=== PATIENT | female | born 1955 | race Caucasian/White ===

== ENCOUNTER 2020-08-27 10:54 | Emergency (ER) | payer MEDICAID ==
--- NOTE | 2020-08-27 10:59 | ERPHSYRPT ---
- History of Present Illness Time Seen by Provider: 08/27/20 10:59 Source: patient Exam Limitations: no limitations Physician History: This is an obese 64-year-old white female who continues to smoke cigarettes but has decreased from 3 packs a day down to half a pack a day and presents with shortness of breath. Patient has been living in [place] and moved to [place] 08 Aug 2020 patient does not have a primary care physician locally. She is running out of her medications and has not been on any oxygen therapy since August 08, 2020. She normally wears 5 L of oxygen via nasal cannula every day. Patient denies chest pain. Her main complaint is shortness of breath and cough. Her symptoms have worsened in the last few days. Patient has not had a heart attack. She has been diagnosed with congestive heart failure, COPD, asthma, recurrent bronchitis. Patient does have home pulse oximeter. She states that with oxygen (5 L nasal cannula) she runs approximately 93 to 94%. She had been running 88% on room air since August 08. She became concerned when she noticed her oxygenation level on room air in the last few days has dipped down to 85%. She has had associated headache intermittently. States that she is allergic to penicillin but has taken Keflex in the past without any problems or allergic reaction. Activities at Onset: none Severity of Dyspnea-Max: moderate Severity of Dyspnea-Current: moderate Possible Cause: occasional episodes Modifying Factors: Improves With: coughing, oxygen (Improves), rest Associated Symptoms: intermittent, cough Allergies/Adverse Reactions: Penicillins Allergy (Verified 08/27/20 11:17) Hives Home Medications: Allopurinol 100 mg [Zyloprim 100 mg] 100 mg PO DAILY 08/27/20 [History] Atorvastatin Calcium [Lipitor 20MG Tablet] 20 mg PO DAILY 08/27/20 [History] Cyclobenzaprine HCl [Flexeril] 10 mg PO TID 08/27/20 [History] Fluticasone/Salmeterol 500/50* [Advair 500-50 Diskus] 0 each IH DAILY 08/27/20 [History] Furosemide 40 mg [Lasix 40 MG] 40 mg PO DAILY 08/27/20 [History] Ipratropium [place] [Atrovent Hfa] 1 puff IH DAILY 08/27/20 [History] Loratadine 10 mg [Claritin 10 mg] 10 mg PO DAILY 08/27/20 [History] PANTOPRAZOLE 40 mg Tablet [Protonix 40MG Tablet] 40 mg PO DAILY 08/27/20 [History] Potassium Chloride 20 meq PO DAILY 08/27/20 [History] glipiZIDE [Glipizide] 5 mg PO DAILY 08/27/20 [History] Travel Risk - International Travel Have you traveled outside of the country in past 3 weeks: No - Coronavirus Screening Are you exhibiting any of the following symptoms?: Yes Symptoms: Shortness of Breath Close contact with a COVID-19 positive Pt in past 14-21 Days: No - Review of Systems Constitutional: No Symptoms Eyes: No Symptoms Ears, Nose, & Throat: No Symptoms Respiratory: Cough, Dyspnea Cardiac: No Symptoms Abdominal/Gastrointestinal: No Symptoms Genitourinary Symptoms: No Symptoms Musculoskeletal: No Symptoms Skin: No Symptoms Neurological: No Symptoms Psychological: No Symptoms Endocrine: No Symptoms Hematologic/Lymphatic: No Symptoms Immunological/Allergic: No Symptoms All Other Systems: Reviewed and Negative - Past Medical History Pertinent Past Medical History: Yes Respiratory History: Asthma, Bronchitis, CHF, COPD Endocrine Medical History: No Pertinent History Musculoskeletal History: No Pertinent History GI Medical History: No Pertinent History History: No Pertinent History Psycho-Social History: No Pertinent History Female Reproductive Disorders: No Pertinent History - Past Surgical History Past Surgical History: Yes - Social History Smoking Status: Current every day smoker - Nursing Vital Signs Nursing Vital Signs: Initial Vital Signs Temperature 97.4 F 08/27/20 11:07 Pulse Rate 99 H 08/27/20 11:07 Respiratory Rate 24 08/27/20 11:07 Blood Pressure 117/84 08/27/20 11:07 O2 Sat by Pulse Oximetry 95 08/27/20 11:07 Pain Scale Pain Intensity 8 - Physical Exam General Appearance: no apparent distress, alert, anxiety, obese Eye Exam: PERRL/EOMI, eyes nml inspection Ears, Nose, Throat Exam: hearing grossly normal, normal ENT inspection, normal pharynx Neck Exam: normal inspection, non-tender, supple, full range of motion Respiratory Exam: normal breath sounds, lungs clear, respiratory distress, airway intact, No chest tenderness Cardiovascular/Chest Exam: normal heart sounds, regular rate/rhythm Abdominal/Gastrointestinal Exam: soft, normal bowel sounds, tenderness Rectal Exam: not done Extremity Exam: non-tender, normal range of motion, normal inspection Neurologic Exam: alert, oriented x 3, cooperative, 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 No comparison EKG available.) Ordered Tests: Active Orders 24 hr Category Date Time Status Electrical Prospector STAT Care 08/27/20 11:44 Active EKG-ER Only STAT Care 08/27/20 11:43 Active IV Insertion STAT Care 08/27/20 11:43 Active Oxygen-ED Only Nasal Cannula 5 lpm Care 08/27/20 11:43 Active Pulse Oximetry (ED) STAT Care 08/27/20 11:43 Active CHEST 1 VIEW (PORTABLE) Stat Exams 08/27/20 11:44 Completed ABG [ARTERIAL BLOOD GASES] Urgent Lab 08/27/20 11:45 Ordered ARTERIAL BLOOD GASES Stat Lab 08/27/20 11:43 Completed BLOOD CULTURE Stat Lab 08/27/20 11:50 Received CBC W DIFF Stat Lab 08/27/20 11:12 Completed CMP Stat Lab 08/27/20 11:12 Completed D-DIMER QUANTITATIVE Stat Lab 08/27/20 11:12 Completed INFLUENZA A+B OUMOU Stat Lab 08/27/20 11:50 Completed Lactic Acid Stat Lab 08/27/20 11:43 Completed MAGNESIUM Stat Lab 08/27/20 11:12 Completed NT PRO BNP Stat Lab 08/27/20 11:12 Completed PROTIME WITH INR Stat Lab 08/27/20 11:12 Completed TROPONIN Q3H Lab 08/27/20 11:12 Completed TROPONIN Q3H Lab 08/27/20 14:45 Ordered TROPONIN Q3H Lab 08/27/20 17:45 Ordered TROPONIN Q3H Lab 08/27/20 20:45 Ordered TROPONIN Q3H Lab 08/27/20 23:45 Ordered Medication Summary Discontinued Medications Generic Name Dose Route Start Last Admin Trade Name Freq PRN Reason Stop Dose Admin Methylprednisolone Sodium Succinate 125 mg 08/27/20 11:43 08/27/20 12:09 Solu-Medrol 125 Mg IV 08/27/20 11:44 125 mg STAT ONE Administration Methylprednisolone Sodium Succinate Confirm 08/27/20 12:05 Solu-Medrol 125 Mg Administered 08/27/20 12:06 Dose 125 mg .ROUTE .STK-MED ONE Lab/Rad Data: Laboratory Result Diagrams 08/27/20 11:12 08/27/20 11:12 Laboratory Results 08/27/20 08/27/20 08/27/20 Range/Units 11:50 11:43 11:12 WBC (4.0-10.5) K/mm3 RBC (4.1-5.4) M/mm3 Hgb (12.0-16.0) gm/dl Hct (35-47) % MCV (78-100) fl MCH (26-32) pg MCHC (32-36) g/dl RDW (11.5-14.0) % Plt Count (150-450) K/mm3 MPV (7.5-11.0) fl Gran % (36.0-66.0) % Eos # (Auto) (0-0.5) Absolute Lymphs (auto) (1.0-4.6) Absolute Monos (auto) (0.0-1.3) Lymphocytes % (24.0-44.0) % Monocytes % (0.0-12.0) % Eosinophils % (0.00-5.0) % Basophils % (0.0-0.4) % Absolute Granulocytes (1.4-6.9) Basophils # (0-0.4) PT (9.95-12.35) SECONDS INR (0.8-3.0) D-Dimer (215-500) ng/mL Puncture Site LEFT BRACHIAL pCO2 44 (35-45) mmHg pO2 79 (75-100) mmHg Base Excess 3.4 H (-2.0-2.0) O2 Saturation 90.2 L (94-100) g/dF ABG pH 7.42 (7.35-7.45) ABG HCO3 28.5 H (22-28) ABG O2 Sat (Measured) 97.5 (95-100) % Baldomero Test NOT APPLICABLE A-a Gradient 151 a/A Ratio 0.34 Hemoglobin 15.0 Carboxyhemoglobin 6.6 (0.0-6.9) % THgb Methemoglobin 0.9 L (1.4-1.5) % Temperature 37.0 C POC O2 Flow Rate 40 % Sodium (137-145) mmol/L Potassium 4.0 (3.5-5.1) mmol/L Chloride (98-107) mmol/L Carbon Dioxide (22-30) mmol/L Anion Gap (5-15) MEQ/L BUN (7-17) mg/dL Creatinine (0.52-1.04) mg/dL Estimated GFR ML/MIN Glucose (74-106) mg/dL Lactic Acid 1.9 (0.4-2.0) Calcium (8.4-10.2) mg/dL Magnesium (1.6-2.3) mg/dL Total Bilirubin (0.2-1.3) mg/dL AST (14-36) U/L ALT (0-35) U/L Alkaline Phosphatase (38-126) U/L Troponin I < 0.012 (0.000-0.034) ng/mL NT-Pro-B Natriuret Pep (0-900) pg/mL Serum Total Protein (6.3-8.2) g/dL Albumin (3.5-5.0) g/dL Influenza Type A Ag NEGATIVE (NEGATIVE) Influenza Type B Ag NEGATIVE (NEGATIVE) 08/27/20 08/27/20 08/27/20 Range/Units 11:12 11:12 11:12 WBC 10.5 (4.0-10.5) K/mm3 RBC 5.22 (4.1-5.4) M/mm3 Hgb 14.9 (12.0-16.0) gm/dl Hct 47.5 H (35-47) % MCV 91.0 (78-100) fl MCH 28.5 (26-32) pg MCHC 31.4 L (32-36) g/dl RDW 15.0 H (11.5-14.0) % Plt Count 269 (150-450) K/mm3 MPV 10.6 (7.5-11.0) fl Gran % 53.0 (36.0-66.0) % Eos # (Auto) 0.07 (0-0.5) Absolute Lymphs (auto) 4.38 (1.0-4.6) Absolute Monos (auto) 0.49 (0.0-1.3) Lymphocytes % 41.6 (24.0-44.0) % Monocytes % 4.6 (0.0-12.0) % Eosinophils % 0.7 (0.00-5.0) % Basophils % 0.1 (0.0-0.4) % Absolute Granulocytes 5.59 (1.4-6.9) Basophils # 0.01 (0-0.4) PT 11.9 (9.95-12.35) SECONDS INR 1.05 (0.8-3.0) D-Dimer 497 (215-500) ng/mL Puncture Site pCO2 (35-45) mmHg pO2 (75-100) mmHg Base Excess (-2.0-2.0) O2 Saturation (94-100) g/dF ABG pH (7.35-7.45) ABG HCO3 (22-28) ABG O2 Sat (Measured) (95-100) % Baldomero Test A-a Gradient a/A Ratio Hemoglobin Carboxyhemoglobin (0.0-6.9) % THgb Methemoglobin (1.4-1.5) % Temperature C POC O2 Flow Rate % Sodium 137 (137-145) mmol/L Potassium 3.9 (3.5-5.1) mmol/L Chloride 100 (98-107) mmol/L Carbon Dioxide 27 (22-30) mmol/L Anion Gap 13.9 (5-15) MEQ/L BUN 12 (7-17) mg/dL Creatinine 0.58 (0.52-1.04) mg/dL Estimated GFR > 60.0 ML/MIN Glucose 137 H (74-106) mg/dL Lactic Acid (0.4-2.0) Calcium 9.3 (8.4-10.2) mg/dL Magnesium 2.1 (1.6-2.3) mg/dL Total Bilirubin 0.30 (0.2-1.3) mg/dL AST 26 (14-36) U/L ALT 14 (0-35) U/L Alkaline Phosphatase 72 (38-126) U/L Troponin I (0.000-0.034) ng/mL NT-Pro-B Natriuret Pep 77.8 (0-900) pg/mL Serum Total Protein 7.0 (6.3-8.2) g/dL Albumin 4.1 (3.5-5.0) g/dL Influenza Type A Ag (NEGATIVE) Influenza Type B Ag (NEGATIVE) - Progress Progress: improved, re-examined Air Movement: good Progress Note: 08/27/20 13:26 Chest x-ray shows no acute cardiopulmonary process. Blood Culture(s) Obtained: Yes Antibiotics given: No Counseled pt/family regarding: lab results, diagnosis, need for follow-up, rad results - Departure Departure Disposition: Home Clinical Impression: COPD exacerbation Condition: Stable Critical Care Time: No Referrals: DOCTOR,NO FAMILY [Primary Care Provider] - Instructions: Chronic Obstructive Pulmonary Disease Additional Instructions: Stop smoking. Take your medication as prescribed. Call and make an appointment with one of the doctors/primary care providers on the list provided to you. Prescriptions: Prednisone 10 mg [Deltasone 10 mg] 10 mg PO TID #12 tablet
[2020-08-27] MEDS ORDERED: solu-MEDROL 125 MG IV ONE (11:43)
[2020-08-27 11:46] LABS: A-aADO2 151; ABG SITE LEFT BRACHIAL; ARTERIAL BLD GAS O2 SATURATION 97.5 % (95-100); ARTERIAL BLOOD GAS BASE EXCESS 3.4 (-2.0-2.0); ARTERIAL BLOOD GAS FIO2 40 %; ARTERIAL BLOOD GAS PCO2 44 mmHg (35-45); ARTERIAL BLOOD GAS PO2 79 mmHg (75-100); ARTERIAL BLOOD GAS pH 7.42 (7.35-7.45); CARBOXYHEMOGLOBIN 6.6 % THgb (0.0-6.9); HCO3- 28.5 (22-28); HGB O2 SAT 90.2 g/dF (94-100); Lactic Acid 1.9 (0.4-2.0); Methhemoglobin 0.9 % (1.4-1.5)
[2020-08-27 11:50] LABS: Absolute Neutrophil Ct (ANC) 5.59 (1.4-6.9); BASOPHIL % 0.1 % (0.0-0.4); Basophil (Absolute #) 0.01 (0-0.4); Eosinophil % 0.7 % (0.00-5.0); Eosinophil (Absolute #) 0.07 (0-0.5); Hematocrit 47.5 % (35-47); Hemoglobin 14.9 gm/dl (12.0-16.0); Lymphocyte (Absolute #) 4.38 (1.0-4.6); Lymphocytes % 41.6 % (24.0-44.0); Mean Corpuscular Hemoglobin 28.5 pg (26-32); Mean Corpuscular Hgb Concent. 31.4 g/dl (32-36); Mean Platelet Volume 10.6 fl (7.5-11.0); Monocyte (Absolute #) 0.49 (0.0-1.3); Monocytes % 4.6 % (0.0-12.0); Platelet Count 269 K/mm3 (150-450); Red Blood Count 5.22 M/mm3 (4.1-5.4); White Blood Count 10.5 K/mm3 (4.0-10.5)
[2020-08-27 11:55] LABS: INR 1.05 (0.8-3.0); PROTIME 11.9 SECONDS (9.95-12.35)
[2020-08-27 12:05] LABS: ALBUMIN 4.1 g/dL (3.5-5.0); ALKALINE PHOSPHATASE 72 U/L (38-126); ANION GAP 13.9 MEQ/L (5-15); BLOOD UREA NITROGEN 12 mg/dL (7-17); CHLORIDE 100 mmol/L (98-107); Calcium 9.3 mg/dL (8.4-10.2); Carbon Dioxide 27 mmol/L (22-30); Creatinine 1 0.58 mg/dL (0.52-1.04); EST GLOMERULAR FILTRATION RATE > 60.0 ML/MIN; Glucose 137 mg/dL (74-106); MAGNESIUM 2.1 mg/dL (1.6-2.3); NT PRO BNP 77.8 pg/mL (0-900); Potassium 3.9 mmol/L (3.5-5.1); SGOT/AST 26 U/L (14-36); SGPT/ALT 14 U/L (0-35); SODIUM 137 mmol/L (137-145)
[2020-08-27] MEDS ORDERED: solu-MEDROL 125 MG ONE (12:05)
--- NOTE | 2020-08-27 12:08 | XRAY ---
Indication: Cough and shortness of breath. Comparison: None Portable chest demonstrates minimal left base subsegmental atelectasis/scarring. Remaining heart and lungs unremarkable. Bony thorax intact.
[2020-08-27 12:15] LABS: INFLUENZA A NEGATIVE (NEGATIVE); INFLUENZA B NEGATIVE (NEGATIVE)
[2020-08-27 15:23] VITALS: BP 114/72; O2SAT 94
[2020-08-27 16:05] VITALS: PULSE 90
== END 2020-08-27 16:29 | disposition home or self-care (01) ==
LOC: ED 10:54
DX: J44.1 Chronic obstructive pulmonary disease with (acute) exacerbation (principal); F17.210 Nicotine dependence, cigarettes, uncomplicated; R05 Cough; Z99.81 Dependence on supplemental oxygen; Z79.899 Other long term (current) drug therapy
CPT/HCPCS: 36000; 36415; 36600; 71045; 80053; 82375; 82803; 83605; 83735; 83880; 84484; 85025; 85379; 85610; 87040; 87400; 93005; 93041; 94760; 96374; 99284; J2930

== ENCOUNTER 2020-10-29 18:56 | Inpatient (IN) | payer MEDICAID, OTHER ==
[2020-10-29] MEDS ORDERED: solu-MEDROL 125 MG, Sterile H2O 10 ml 2 ML IV ONE ×2 (19:20)
[2020-10-29] MEDS ORDERED: DUONEB 0.5-3 MG/3 ml Neb IH ONE ×2 (19:20→19:27)
[2020-10-29] MEDS ORDERED: BABY ASPIRIN 81 MG CHEW PO ONE (19:22)
--- NOTE | 2020-10-29 19:27 | ERPHSYRPT ---
- History of Present Illness Time Seen by Provider: 10/29/20 18:59 Source: patient, EMS Exam Limitations: no limitations Patient Subjective Stated Complaint: SOB x 4 days Triage Nursing Assessment: Patient presents to ED by EMS from home with cc of SOB x 4 days. Pt arrives a & [facility], answers questions appropriately. GCS 15. Sinus tach noted at a rate of 130. RR elevated at mid 30's. Arrives on duoneb mask by EMS (93% on duoneb). Pt always wears 2L O2 at home. SOB at rest. Respirations are even but somewhat labored. Hx CHF. Denies chest pain. BP stable at 117/95. Skin pink and warm but diaphoretic. Physician History: 65 years old morbidly obese female with longstanding history of tobacco abuse,'s chronic respiratory failure secondary to COPD on 5 L, still continues to smoke half pack daily, diabetes mellitus, congestive heart failure presented to the ER with 4 days history of increasing shortness of breath initially with minimal activity and now even at resting and despite being on 5 L feels very short of breath. She has also minimal productive cough. On EMS arrival today she was satting around 90% on 5 L, given DuoNeb when she is around 94%. Subjective feeling of fever and chills along with chest heaviness. Denies any lower extremity swellings. Timing/Duration: day(s) (4), constant, gradual onset, worse Activities at Onset: rest Severity of Dyspnea-Max: severe Severity of Dyspnea-Current: severe Modifying Factors: Worsens With: activity, coughing Associated Symptoms: constant, cough, fever, wheezing, chills, productive cough, tightness Allergies/Adverse Reactions: Penicillins Allergy (Verified 10/29/20 19:12) Hives Home Medications: Allopurinol 100 mg [Zyloprim 100 mg] 100 mg PO DAILY 08/27/20 [History] Atorvastatin Calcium [Lipitor 20MG Tablet] 20 mg PO DAILY 08/27/20 [History] Cyclobenzaprine HCl [Flexeril] 10 mg PO TID 08/27/20 [History] Fluticasone/Salmeterol 500/50* [Advair 500-50 Diskus] 0 each IH DAILY 08/27/20 [History] Furosemide 40 mg [Lasix 40 MG] 40 mg PO DAILY 08/27/20 [History] Ipratropium [place] [Atrovent Hfa] 1 puff IH DAILY 08/27/20 [History] Loratadine 10 mg [Claritin 10 mg] 10 mg PO DAILY 08/27/20 [History] PANTOPRAZOLE 40 mg Tablet [Protonix 40MG Tablet] 40 mg PO DAILY 08/27/20 [History] Potassium Chloride 20 meq PO DAILY 08/27/20 [History] glipiZIDE [Glipizide] 5 mg PO DAILY 08/27/20 [History] Hx Tetanus, Diphtheria Vaccination/Date Given: Yes Hx Influenza Vaccination/Date Given: Yes Hx Pneumococcal Vaccination/Date Given: Yes Travel Risk - International Travel Have you traveled outside of the country in past 3 weeks: No - Coronavirus Screening Are you exhibiting any of the following symptoms?: No Close contact with a COVID-19 positive Pt in past 14-21 Days: No - Vaccine Status Have you recieved a Covid-19 vaccination: Yes Professor Of Literature: Unknown - Vaccination Dates Dates if Unknown: unknown - Review of Systems Constitutional: Fever, Chills, Fatigue, Weakness Eyes: No Symptoms Ears, Nose, & Throat: No Symptoms Respiratory: Cough, Dyspnea, Dyspnea on Exertion (CASE), Wheezing Cardiac: Palpitations, Orthopnea Abdominal/Gastrointestinal: No Symptoms Genitourinary Symptoms: No Symptoms Musculoskeletal: No Symptoms Skin: No Symptoms Neurological: No Symptoms Psychological: No Symptoms Endocrine: No Symptoms Hematologic/Lymphatic: No Symptoms Immunological/Allergic: No Symptoms - Past Medical History Pertinent Past Medical History: Yes Cardiac History: Congestive Heart Failure, High Cholesterol Respiratory History: Asthma, Bronchitis, CHF, COPD Endocrine Medical History: No Pertinent History Musculoskeletal History: No Pertinent History GI Medical History: No Pertinent History History: No Pertinent History Psycho-Social History: No Pertinent History Female Reproductive Disorders: No Pertinent History Other Medical History: GOUT, seasonal allergies, - Past Surgical History Past Surgical History: Yes Musculoskeletal: Orthopedic Surgery Female Surgical History: Hysterectomy Other Surgical History: teeth removed, bunyonectomy, R hand - Social History Smoking Status: Current every day smoker How long have you smoked: years Exposure to second hand smoke: No Drug Use: none Patient Lives Alone: Yes - Female History Hx Now: No - Nursing Vital Signs Nursing Vital Signs: Initial Vital Signs Temperature 98.9 F 07/22/21 19:00 Pulse Rate 132 H 10/29/20 19:00 Respiratory Rate 36 H 10/29/20 19:00 Blood Pressure 117/95 10/29/20 19:00 O2 Sat by Pulse Oximetry 93 L 10/29/20 19:00 Pain Scale Pain Intensity 7 - Physical Exam General Appearance: no apparent distress, alert Eye Exam: PERRL/EOMI, eyes nml inspection Ears, Nose, Throat Exam: hearing grossly normal, pharyngeal erythema Neck Exam: normal inspection, non-tender, full range of motion Respiratory Exam: respiratory distress, diminished breath sounds, accessory muscle use, prolonged expirations, crackles/rales, rhonchi, wheezing Cardiovascular/Chest Exam: normal heart sounds, tachycardia Abdominal/Gastrointestinal Exam: soft, normal bowel sounds Extremity Exam: non-tender, normal range of motion Neurologic Exam: alert, oriented x 3, cooperative Skin Exam: normal color SpO2 Interpretation: normal SpO2: 93 O2 Delivery: Nasal Cannula - Course EKG Interpreted by Me: RATE (131), Sinus Tach, Left [place] Deviation, LAFB, NORMAL INTERVALS, Non-specific ST Changes Ordered Tests: Active Orders 24 hr Category Date Time Status Lift Driver STAT Care 10/29/20 19:21 Active EKG-ER Only STAT Care 10/29/20 19:20 Active IV Insertion STAT Care 10/29/20 19:20 Active CHEST 1 VIEW (PORTABLE) Stat Exams 10/29/20 19:21 Taken CHEST WITH CONTRAST [CT] Stat Exams 10/29/20 20:27 Taken ARTERIAL BLOOD GASES Stat Lab 10/29/20 19:35 Completed BLOOD CULTURE Stat Lab 10/29/20 19:40 Received CBC W DIFF Stat Lab 10/29/20 19:30 Completed CMP Stat Lab 10/29/20 19:30 Completed Lactic Acid Stat Lab 10/29/20 19:35 Completed MAGNESIUM Stat Lab 10/29/20 19:30 Completed Manual Differential NC Stat Lab 10/29/20 19:30 Completed NT PRO BNP Stat Lab 10/29/20 19:30 Completed TROPONIN Q3H Lab 10/29/20 19:30 Completed TROPONIN Q3H Lab 10/29/20 22:30 Ordered TROPONIN Q3H Lab 10/30/20 01:30 Ordered TROPONIN Q3H Lab 10/30/20 04:30 Ordered TROPONIN Q3H Lab 10/30/20 07:30 Ordered UA W/RFX UR CULTURE Stat Lab 10/29/20 19:20 Ordered BiPap/CPAP STAT RT 10/29/20 19:20 Active Respiratory Therapy Assessment DAILY RT 10/29/20 19:29 Active Transfer Order Routine Transfer 10/29/20 Ordered Medication Summary Discontinued Medications Generic Name Dose Route Start Last Admin Trade Name Cristian PRN Reason Stop Dose Admin Albuterol/Ipratropium 3 ml 10/29/20 19:20 10/29/20 19:28 Duoneb 0.5-3 Mg/3 Ml Neb IH 10/29/20 19:21 3 ml STAT ONE Administration Albuterol/Ipratropium Confirm 10/29/20 19:27 Duoneb 0.5-3 Mg/3 Ml Neb Administered 10/29/20 19:28 Dose 3 ml IH .STK-MED ONE Aspirin 324 mg 10/29/20 19:22 10/29/20 19:50 Baby Aspirin 81 Mg Chew PO 10/29/20 19:23 324 mg STAT ONE Administration Methylprednisolone Sodium 0 mg 10/29/20 19:20 10/29/20 19:48 Succinate 125 mg/ Sterile IV 10/29/20 19:21 125 mg Water 2 ml STAT ONE Administration Levofloxacin/Dextrose 750 mg in 150 mls @ 100 mls/hr 10/29/20 19:35 10/29/20 19:51 Levofloxacin 750mg/150ml D5w IV 10/29/20 21:04 100 mls/hr STAT STA 100 mls/hr Administration Aztreonam 2 gm/ Sodium 100 mls @ 200 mls/hr 10/29/20 19:35 10/29/20 20:30 Chloride IV 10/29/20 20:04 200 mls/hr STAT ONE Administration Levofloxacin/Dextrose Confirm 10/29/20 19:44 Levofloxacin 750mg/150ml D5w Administered 10/29/20 19:45 Dose 750 mg in 150 mls @ ud IV .STK-MED ONE Sodium Chloride Confirm 10/29/20 19:46 Sodium Chloride 0.9% 100 Ml Bag Administered 10/29/20 19:47 Dose 100 mls @ ud .ROUTE .STK-MED ONE Methylprednisolone Sodium Succinate Confirm 10/29/20 19:44 Solu-Medrol Administered 10/29/20 19:45 Dose 125 mg .ROUTE .STK-MED ONE Sterile Water Confirm 10/29/20 19:49 Sterile H2o 10 Ml Administered 10/29/20 19:50 Dose 10 ml IJ .STK-MED ONE Lab/Rad Data: Laboratory Result Diagrams 10/29/20 19:30 10/29/20 19:30 Laboratory Results 10/29/20 10/29/20 10/29/20 Range/Units 19:35 19:30 19:30 WBC (4.0-10.5) K/mm3 RBC (4.1-5.4) M/mm3 Hgb (12.0-16.0) gm/dl Hct (35-47) % MCV (78-100) fl MCH (26-32) pg MCHC (32-36) g/dl RDW (11.5-14.0) % Plt Count (150-450) K/mm3 MPV (7.5-11.0) fl Puncture Site RIGHT RADIAL pCO2 30 L (35-45) mmHg pO2 63 L (75-100) mmHg Base Excess 5.2 H (-2.0-2.0) O2 Saturation 91.0 L (94-100) g/dF ABG pH 7.56 H* (7.35-7.45) ABG HCO3 26.9 (22-28) ABG O2 Sat (Measured) 95.4 (95-100) % Baldomero Test YES A-a Gradient 613 a/A Ratio 0.09 Hemoglobin 15.1 Carboxyhemoglobin 3.5 (0.0-6.9) % THgb Methemoglobin 1.1 L (1.4-1.5) % Temperature 37.0 C POC O2 Flow Rate 100 % Sodium 134 L (137-145) mmol/L Potassium 3.6 3.6 (3.5-5.1) mmol/L Chloride 95 L (98-107) mmol/L Carbon Dioxide 27 (22-30) mmol/L Anion Gap 16.2 H (5-15) MEQ/L BUN 16 (7-17) mg/dL Creatinine 0.59 (0.52-1.04) mg/dL Estimated GFR > 60.0 ML/MIN Glucose 138 H (74-106) mg/dL Lactic Acid 1.6 (0.4-2.0) Calcium 9.6 (8.4-10.2) mg/dL Magnesium 1.7 (1.6-2.3) mg/dL Total Bilirubin 0.70 (0.2-1.3) mg/dL AST 21 (14-36) U/L ALT 11 (0-35) U/L Alkaline Phosphatase 87 (38-126) U/L Troponin I < 0.012 (0.000-0.034) ng/mL NT-Pro-B Natriuret Pep 635 (0-900) pg/mL Serum Total Protein 7.8 (6.3-8.2) g/dL Albumin 4.4 (3.5-5.0) g/dL 10/29/20 Range/Units 19:30 WBC 27.8 H* (4.0-10.5) K/mm3 RBC 5.32 (4.1-5.4) M/mm3 Hgb 15.1 (12.0-16.0) gm/dl Hct 46.7 (35-47) % MCV 87.8 (78-100) fl MCH 28.4 (26-32) pg MCHC 32.3 (32-36) g/dl RDW 15.2 H (11.5-14.0) % Plt Count 241 (150-450) K/mm3 MPV 10.5 (7.5-11.0) fl Puncture Site pCO2 (35-45) mmHg pO2 (75-100) mmHg Base Excess (-2.0-2.0) O2 Saturation (94-100) g/dF ABG pH (7.35-7.45) ABG HCO3 (22-28) ABG O2 Sat (Measured) (95-100) % Baldomero Test A-a Gradient a/A Ratio Hemoglobin Carboxyhemoglobin (0.0-6.9) % THgb Methemoglobin (1.4-1.5) % Temperature C POC O2 Flow Rate % Sodium (137-145) mmol/L Potassium (3.5-5.1) mmol/L Chloride (98-107) mmol/L Carbon Dioxide (22-30) mmol/L Anion Gap (5-15) MEQ/L BUN (7-17) mg/dL Creatinine (0.52-1.04) mg/dL Estimated GFR ML/MIN Glucose (74-106) mg/dL Lactic Acid (0.4-2.0) Calcium (8.4-10.2) mg/dL Magnesium (1.6-2.3) mg/dL Total Bilirubin (0.2-1.3) mg/dL AST (14-36) U/L ALT (0-35) U/L Alkaline Phosphatase (38-126) U/L Troponin I (0.000-0.034) ng/mL NT-Pro-B Natriuret Pep (0-900) pg/mL Serum Total Protein (6.3-8.2) g/dL Albumin (3.5-5.0) g/dL - Progress Progress: improved Air Movement: fair Progress Note: 10/29/20 20:31 65 years old is evaluated for worsening shortness of breath. Patient was tachyp neic and tachycardic on presentation. She is given breathing treatment and Solu-Medrol. Chest x-ray showed bilateral airspace disease, started on broad- spectrum antibiotic Azactam/Levaquin. Work-up showed white count of 27 with a EKG showing sinus tach without ST elevation and negative initial troponins. Normal BNP. Discussed with Dr. Hammond and patient is being admitted. We will also obtain CTA chest to rule out PE which is pending now and I will follow up with results. 10/29/20 22:47 CT is negative for pulmonary embolism but does show pneumonic consolidations. Blood Culture(s) Obtained: Yes Antibiotics given: Yes Discussed with : Emerald Will see patient in: hospital (full admit) Counseled pt/family regarding: lab results, diagnosis, rad results, smoking cessation - Departure Departure Disposition: In-patient Admission Clinical Impression: COPD exacerbation Respiratory failure Qualifiers: Chronicity: acute on chronic Respiratory failure complication: hypoxia Qualified Code(s): J96.21 - Acute and chronic respiratory failure with hypoxia Bilateral pneumonia Qualifiers: Pneumonia type: due to unspecified organism Lung location: unspecified part of lung Qualified Code(s): J18.9 - Pneumonia, unspecified organism Condition: Stable Critical Care Time: Yes Critical Care Time(excluding separately billable procedures): Critical 30-74 mins Referrals: DOCTOR,NO FAMILY [NON-STAFF PHY W/O PRIVILEGES] - Instructions: Chronic Obstructive Pulmonary Disease
[2020-10-29] MEDS ORDERED: LEVOFLOXACIN 750MG/150ML D5W 750 MG/150 ML BAG IV STA (19:35)
[2020-10-29] MEDS ORDERED: AZACTAM 1 GM*** 2 GM in Sodium Chloride 0.9% 100 ML BAG 100 ML IV ONE (19:35)
[2020-10-29] MEDS ORDERED: LEVOFLOXACIN 750MG/150ML D5W 750 MG/150 ML BAG IV ONE (19:44)
[2020-10-29] MEDS ORDERED: solu-MEDROL ONE (19:44)
[2020-10-29] MEDS ORDERED: Sodium Chloride 0.9% 100 ML BAG 100 ML ONE (19:46)
[2020-10-29] MEDS ORDERED: Sterile H2O 10 ml IJ ONE (19:49)
[2020-10-29 19:55] LABS: A-aADO2 613; ABG HEMOGLOBIN 15.1; ABG POTASSIUM 3.6 (3.5-5.1); ARTERIAL BLD GAS O2 SATURATION 95.4 % (95-100); ARTERIAL BLOOD GAS BASE EXCESS 5.2 (-2.0-2.0); ARTERIAL BLOOD GAS FIO2 100 %; ARTERIAL BLOOD GAS PCO2 30 mmHg (35-45); ARTERIAL BLOOD GAS PO2 63 mmHg (75-100); CARBOXYHEMOGLOBIN 3.5 % THgb (0.0-6.9); HCO3- 26.9 (22-28); Lactic Acid 1.6 (0.4-2.0); Methhemoglobin 1.1 % (1.4-1.5)
[2020-10-29 19:56] LABS: ABG SITE RIGHT RADIAL; ALLEN TEST OK? YES; ARTERIAL BLOOD GAS pH 7.56 (7.35-7.45)
[2020-10-29 19:56] LABS: Hematocrit 46.7 % (35-47); Hemoglobin 15.1 gm/dl (12.0-16.0); Mean Cell Volume 87.8 fl (78-100); Mean Corpuscular Hemoglobin 28.4 pg (26-32); Mean Corpuscular Hgb Concent. 32.3 g/dl (32-36); Mean Platelet Volume 10.5 fl (7.5-11.0); Platelet Count 241 K/mm3 (150-450); Red Blood Count 5.32 M/mm3 (4.1-5.4); Red Cell Distribution Width 15.2 % (11.5-14.0)
[2020-10-29 20:24] LABS: ALBUMIN 4.4 g/dL (3.5-5.0); ALKALINE PHOSPHATASE 87 U/L (38-126); ANION GAP 16.2 MEQ/L (5-15); BLOOD UREA NITROGEN 16 mg/dL (7-17); CHLORIDE 95 mmol/L (98-107); Calcium 9.6 mg/dL (8.4-10.2); Carbon Dioxide 27 mmol/L (22-30); Creatinine 1 0.59 mg/dL (0.52-1.04); EST GLOMERULAR FILTRATION RATE > 60.0 ML/MIN; Glucose 138 mg/dL (74-106); MAGNESIUM 1.7 mg/dL (1.6-2.3); NT PRO BNP 635 pg/mL (0-900); Potassium 3.6 mmol/L (3.5-5.1); SGOT/AST 21 U/L (14-36); SGPT/ALT 11 U/L (0-35); SODIUM 134 mmol/L (137-145); Total Protein 7.8 g/dL (6.3-8.2); White Blood Count 27.8 K/mm3 (4.0-10.5)
[2020-10-29 23:46] LABS: Lymphocytes 19 % (24-44); Monocyte 3 % (0.0-12.0); Neutrophils 78 % (36.0-66.0); Platelet Estimate NORMAL (NORMAL); Total Cells Counted 100
[2020-10-30] MEDS ORDERED: TYLENOL 325 MG PO PRN (00:31)
[2020-10-30] MEDS: DUONEB 0.5-3 MG/3 ml Neb IH SCH ×4 (02:05→19:22)
[2020-10-30] MEDS ORDERED: solu-MEDROL ONE ×2 (02:17→05:01)
[2020-10-30] MEDS ORDERED: AZACTAM 1 GM ONE (02:18)
[2020-10-30] MEDS ORDERED: D5w 100ML Mini Bag 100 ML 0 ML IV ONE (02:18)
[2020-10-30] MEDS ORDERED: Sterile H2O 10 ml IJ ONE ×2 (02:19→05:01)
[2020-10-30] MEDS: solu-MEDROL 80 MG, Sterile H2O 10 ml 2 ML IV SCH ×4 (02:20→06:58)
[2020-10-30] MEDS: AZACTAM 1 GM*** 1 GM in Sodium Chloride 100ML MINI-BAG PLUS 100 ML IV SCH ×5 (02:23→23:35)
[2020-10-30] MEDS ORDERED: Sodium Chloride 0.9% 100 ML BAG 0 ML ONE (02:25)
[2020-10-30] MEDS ORDERED: Sodium Chloride 100ML MINI-BAG PLUS 0 ML IV ONE (02:29)
[2020-10-30 04:59] LABS: Hematocrit 45.6 % (35-47); Hemoglobin 14.5 gm/dl (12.0-16.0); Mean Cell Volume 89.1 fl (78-100); Mean Corpuscular Hemoglobin 28.3 pg (26-32); Mean Corpuscular Hgb Concent. 31.8 g/dl (32-36); Mean Platelet Volume 10.1 fl (7.5-11.0); Platelet Count 236 K/mm3 (150-450); Red Blood Count 5.12 M/mm3 (4.1-5.4); Red Cell Distribution Width 15.4 % (11.5-14.0)
[2020-10-30] MEDS ORDERED: Sodium Chloride 100ML MINI-BAG PLUS 100 ML IV ONE (05:02)
[2020-10-30 05:24] LABS: ALBUMIN 4.1 g/dL (3.5-5.0); ALKALINE PHOSPHATASE 80 U/L (38-126); ANION GAP 16.7 MEQ/L (5-15); BLOOD UREA NITROGEN 21 mg/dL (7-17); CHLORIDE 96 mmol/L (98-107); Calcium 9.6 mg/dL (8.4-10.2); Carbon Dioxide 29 mmol/L (22-30); Creatinine 1 0.74 mg/dL (0.52-1.04); EST GLOMERULAR FILTRATION RATE > 60.0 ML/MIN; Glucose 200 mg/dL (74-106); Potassium 4.1 mmol/L (3.5-5.1); SGOT/AST 18 U/L (14-36); SGPT/ALT 12 U/L (0-35); SODIUM 138 mmol/L (137-145); Total Protein 7.4 g/dL (6.3-8.2)
[2020-10-30 06:00] LABS: White Blood Count 25.5 K/mm3 (4.0-10.5)
[2020-10-30] MEDS: Spiriva 18 Mcg/Cap Inhaler IH SCH ×2 (06:37→10:01)
[2020-10-30] MEDS: Advair Hfa 230/21 Mcg COMMON CANISTER IH SCH ×2 (06:37→19:27)
[2020-10-30 07:21] LABS: BAND 24 % (0.0-2.0); Lymphocytes 6 % (24-44); Monocyte 2 % (0.0-12.0); Neutrophils 68 % (36.0-66.0); Total Cells Counted 100
[2020-10-30 07:22] LABS: Platelet Estimate NORMAL (NORMAL)
[2020-10-30 07:23] LABS: Absolute Neutrophil Ct (ANC) 23.41 (1.4-6.9)
--- NOTE | 2020-10-30 08:44 | XRAY ---
Indication: Pneumonia. Comparison: August 27, 2020. Portable chest demonstrates new bilateral patchy interstitial alveolar opacities with mild inferior right upper lobe consolidation. No large effusion. Heart not enlarged. Bony thorax intact again with mild osteopenia and degenerative changes.
--- NOTE | 2020-10-30 08:47 | XRAY ---
Indication: Chest pain and short of breath. COPD. Multiple contiguous axial images obtained through the chest using 80 cc Isovue 370 contrast and PE protocol. Comparison: None There is good opacification of the pulmonary arteries to include the lobar and segmental branches. No pulmonary embolus. Heart not enlarged. Aorta is normal in course and caliber. Centimeter/subcentimeter mediastinal lymph nodes. No pathologic mediastinal/hilar lymphadenopathy. Lungs demonstrates diffuse patchy airspace disease bilaterally. Inferior right upper lobe and lesser degree right lower lobe demonstrates patchy organizing consolidations. No effusion. Bony thorax intact with mild osteopenia and degenerative changes throughout the spine. Limited upper abdomen demonstrates fatty liver and a few small left renal cysts, largest 7 mm.. Also small round noncalcified bilateral adrenal gland masses, largest on the right measuring 2.4 x 1.9 cm. Differential would include both benign and malignant masses. Impression: 1. Negative pulmonary embolus. 2. Diffuse bilateral patchy airspace disease with right upper lobe organizing consolidations. 3. Bilateral adrenal gland masses, benign versus malignant. Outside comparison studies recommended if available. If not, CT with and without contrast exam may yield further information. 4. Incidental fatty liver and left renal cysts.
[2020-10-30] MEDS ORDERED: Glucotrol Xl 2.5 MG PO PRN (09:43)
[2020-10-30] MEDS: Nicoderm CQ 21 MG TOP SCH (09:57)
[2020-10-30] MEDS: ZYLOPRIM 100 MG PO SCH (09:57)
[2020-10-30] MEDS: Zocor 10MG PO SCH (09:57)
[2020-10-30] MEDS: Cyclobenzaprine 10 MG PO SCH ×2 (09:58→21:57)
[2020-10-30] MEDS: ENOXAPARIN SODIUM SQ SCH (09:58)
[2020-10-30] MEDS: PROTONIX 40 MG IV IV SCH (09:58)
[2020-10-30] MEDS: CLARITIN 10 MG PO SCH (09:58)
[2020-10-30] MEDS ORDERED: NON-FORMULARY ITEM (Cyclobenzaprine Hcl [Flexeril] 10 MG) PO SCH (10:00)
[2020-10-30] MEDS: solu-MEDROL 60 MG, Sterile H2O 10 ml 2 ML IV SCH ×6 (11:02→23:34)
[2020-10-30] MEDS: NYSTOP POWDER 15 GM TP SCH ×2 (11:30→21:56)
[2020-10-30] MEDS: HUMALOG SQ PRN ×2 (11:46→21:53)
[2020-10-30 17:44] LABS: Appearance SLIGHTLY CLOUDY (CLEAR); Bilirubin SMALL (NEGATIVE); Blood NEGATIVE Ery/ul (0-5); Epithelial Cells RARE /HPF (FEW); Glucose NEGATIVE (NEGATIVE); Ketones NEGATIVE (NEGATIVE); Leukocyte Esterase NEGATIVE (NEGATIVE); Mucus SLIGHT /HPF (NEGATIVE); Nitrite NEGATIVE (NEGATIVE); Protein,Urine Dip 100 (Negative); Specific Gravity 1.043 (1.005-1.025); Urobilinogen 4 mg/dL (0-1)
[2020-10-30] MEDS: LEVOFLOXACIN 750MG/150ML D5W 750 MG/150 ML BAG IV SCH (21:55)
[2020-10-30] MEDS ORDERED: PRAVASTATIN SODIUM PO SCH (22:00)
[2020-10-30] MEDS ORDERED: NYSTOP POWDER 15 GM TP SCH (22:00)
[2020-10-31] MEDS: DUONEB 0.5-3 MG/3 ml Neb IH SCH ×4 (01:30→19:52)
[2020-10-31] MEDS: solu-MEDROL 60 MG, Sterile H2O 10 ml 2 ML IV SCH ×2 (05:12)
[2020-10-31] MEDS: AZACTAM 1 GM*** 1 GM in Sodium Chloride 100ML MINI-BAG PLUS 100 ML IV SCH ×4 (05:12→23:41)
[2020-10-31 06:08] LABS: Hematocrit 42.4 % (35-47); Hemoglobin 13.4 gm/dl (12.0-16.0); Mean Cell Volume 89.5 fl (78-100); Mean Corpuscular Hemoglobin 28.3 pg (26-32); Mean Corpuscular Hgb Concent. 31.6 g/dl (32-36); Mean Platelet Volume 10.7 fl (7.5-11.0); Platelet Count 274 K/mm3 (150-450); Red Blood Count 4.74 M/mm3 (4.1-5.4); Red Cell Distribution Width 15.3 % (11.5-14.0); White Blood Count 24.8 K/mm3 (4.0-10.5)
[2020-10-31 06:37] LABS: ANION GAP 14.2 MEQ/L (5-15); BLOOD UREA NITROGEN 32 mg/dL (7-17); CHLORIDE 97 mmol/L (98-107); Calcium 9.6 mg/dL (8.4-10.2); Carbon Dioxide 28 mmol/L (22-30); Creatinine 1 0.68 mg/dL (0.52-1.04); EST GLOMERULAR FILTRATION RATE > 60.0 ML/MIN; Glucose 151 mg/dL (74-106); Potassium 3.5 mmol/L (3.5-5.1); SODIUM 136 mmol/L (137-145)
[2020-10-31] MEDS: Advair Hfa 230/21 Mcg COMMON CANISTER IH SCH ×2 (07:47→19:52)
[2020-10-31] MEDS: Spiriva 18 Mcg/Cap Inhaler IH SCH (07:47)
--- NOTE | 2020-10-31 07:50 | XRAY ---
Indication: Follow-up pneumonia. Comparison: October 29, 2020. Portable chest improved with mild clearing of the bilateral patchy interstitial alveolar opacities including right upper lobe consolidation. Heart not enlarged. No new cardiopulmonary abnormalities.
[2020-10-31] MEDS: CLARITIN 10 MG PO SCH (09:08)
[2020-10-31] MEDS: Nicoderm CQ 21 MG TOP SCH (09:08)
[2020-10-31] MEDS: Cyclobenzaprine 10 MG PO SCH ×2 (09:08→21:02)
[2020-10-31] MEDS: PROTONIX 40 MG IV IV SCH (09:08)
[2020-10-31] MEDS: ZYLOPRIM 100 MG PO SCH (09:08)
[2020-10-31] MEDS: ENOXAPARIN SODIUM SQ SCH (09:08)
[2020-10-31] MEDS: NYSTOP POWDER 15 GM TP SCH ×2 (09:09→21:03)
[2020-10-31] MEDS: Zocor 10MG PO SCH (09:09)
[2020-10-31] MEDS ORDERED: HYDROCODONE-CHLORPHEN ER SUSP PO PRN (10:51)
[2020-10-31] MEDS ORDERED: Sodium Chloride 0.9% 1000 ML 1,000 ML IV SCH (11:00)
[2020-10-31] MEDS: FLAGYL 500 MG IVPB 500 MG/100 ML BAG IV SCH ×2 (11:20→19:48)
[2020-10-31] MEDS: NAPROSYN 375 MG PO SCH ×2 (11:52→21:02)
[2020-10-31] MEDS: HUMALOG SQ PRN (12:30)
[2020-10-31] MEDS: LEVOFLOXACIN 750MG/150ML D5W 750 MG/150 ML BAG IV SCH (21:01)
[2020-10-31] MEDS ORDERED: PATIENT OWN MEDICATION PO SCH (22:00)
[2020-11-01] MEDS: DUONEB 0.5-3 MG/3 ml Neb IH SCH ×2 (01:00→07:14)
[2020-11-01] MEDS: FLAGYL 500 MG IVPB 500 MG/100 ML BAG IV SCH (03:27)
[2020-11-01 04:53] VITALS: O2SAT 94
[2020-11-01] MEDS: AZACTAM 1 GM*** 1 GM in Sodium Chloride 100ML MINI-BAG PLUS 100 ML IV SCH (05:25)
[2020-11-01 07:07] LABS: Hematocrit 40.9 % (35-47); Hemoglobin 12.9 gm/dl (12.0-16.0); Mean Cell Volume 89.7 fl (78-100); Mean Corpuscular Hemoglobin 28.3 pg (26-32); Mean Corpuscular Hgb Concent. 31.5 g/dl (32-36); Mean Platelet Volume 10.5 fl (7.5-11.0); Platelet Count 292 K/mm3 (150-450); Red Blood Count 4.56 M/mm3 (4.1-5.4); Red Cell Distribution Width 15.4 % (11.5-14.0); White Blood Count 20.3 K/mm3 (4.0-10.5)
[2020-11-01 07:09] LABS: ALBUMIN 3.7 g/dL (3.5-5.0); ALKALINE PHOSPHATASE 73 U/L (38-126); ANION GAP 13.5 MEQ/L (5-15); BLOOD UREA NITROGEN 44 mg/dL (7-17); CHLORIDE 100 mmol/L (98-107); Calcium 9.1 mg/dL (8.4-10.2); Carbon Dioxide 26 mmol/L (22-30); Creatinine 1 0.77 mg/dL (0.52-1.04); EST GLOMERULAR FILTRATION RATE > 60.0 ML/MIN; Glucose 111 mg/dL (74-106); Potassium 3.9 mmol/L (3.5-5.1); SGOT/AST 21 U/L (14-36); SGPT/ALT 13 U/L (0-35); SODIUM 135 mmol/L (137-145); Total Protein 6.8 g/dL (6.3-8.2)
[2020-11-01] MEDS: Advair Hfa 230/21 Mcg COMMON CANISTER IH SCH (07:20)
[2020-11-01] MEDS: Spiriva 18 Mcg/Cap Inhaler IH SCH (07:20)
[2020-11-01 07:38] VITALS: BP 128/68; PULSE 89
[2020-11-01] MEDS: Nicoderm CQ 21 MG TOP SCH (09:03)
[2020-11-01] MEDS: Cyclobenzaprine 10 MG PO SCH (09:04)
[2020-11-01] MEDS: Zocor 10MG PO SCH (09:04)
[2020-11-01] MEDS: CLARITIN 10 MG PO SCH (09:04)
[2020-11-01] MEDS: ZYLOPRIM 100 MG PO SCH (09:04)
[2020-11-01] MEDS: ENOXAPARIN SODIUM SQ SCH (09:04)
[2020-11-01] MEDS: NAPROSYN 375 MG PO SCH (09:05)
[2020-11-01] MEDS: PROTONIX 40 MG IV IV SCH (09:05)
[2020-11-01] MEDS: NYSTOP POWDER 15 GM TP SCH (09:05)
[2020-11-01] MEDS ORDERED: DELTASONE 20 MG PO SCH (10:00)
[2020-11-01 14:34] LABS: ANISOCYTOSIS 1+; Lymphocytes 15 % (24-44); Monocyte 3 % (0.0-12.0); Neutrophils 82 % (36.0-66.0); Platelet Estimate NORMAL (NORMAL); Total Cells Counted 100; Toxic Granulation 2+
--- NOTE | 2020-11-03 15:32 | DS ---
DISCHARGE DIAGNOSES: 1) CHRONIC OBSTRUCTIVE PULMONARY DISEASE EXACERBATION. 2) HYPOXIA. HOSPITAL COURSE: The patient is a 65 year-old white female who presented to the emergency room after complaints for past four days. She was quite tired and wheezing with expiration. She currently does have albuterol but she does not have a nebulizer machine. She has been borrowing one from a friend and reports he needs his back and wanted a nebulizer machine when she was discharged. The patient was initially placed in the ICU on high levels of oxygen. When I saw her on 10/31/2020, she was on 9 liters of Oxymizer although by the next morning she was down to her usual 5 liters per nasal cannula that she has been taking at home. She is feeling much better and was requesting to go home at this time. She reports she did receive antibiotics intravenously of Levaquin and we added Flagyl for anaerobic coverage. The patient felt much better after this. We were able to change her over to p.o. steroids at 60 mg a day from her IV medications and with addition of the Flagyl her procalcitonin level dropped from 0.3 to 0.2 overnight. The patient was feeling much better. She was felt to be ready for discharge home now on prednisone 60 mg a day for five days and then 40 for five days. The patient reported she is taking 20 mg daily routinely. She will have home oxygen. She will be at 5 liters per nasal cannula as she had been previously. She was given prescription for Levaquin 500 mg daily and Flagyl 250 mg t.i.d. Follow up with her primary care provider, Dr. Hammond, in the next week.
--- NOTE | 2020-11-04 16:55 | PCM.SSS ---
History of Present Illness - Chief Complaint Chief Complaint: Acute on chronic hypoxic respiratory failure Date: 10/30/20 History of Present Illness: is a 65 year old female. Pt. admitted for progressively worsening sob and cough over the past 4 days. - Review of Systems Constitutional: No Fever, No Chills Eyes: No Symptoms Ears, Nose, & Throat: No Symptoms Respiratory: Cough, Short Of Breath, Wheezing Cardiac: No Chest Pain, No Edema, No Syncope Abdominal/Gastrointestinal: No Abdominal Pain, No Nausea, No Vomiting, No Diarrhea Genitourinary Symptoms: No Dysuria Musculoskeletal: No Back Pain, No Neck Pain Skin: No Rash Neurological: No Dizziness, No Focal Weakness, No Sensory Changes Psychological: No Symptoms Endocrine: No Symptoms Hematologic/Lymphatic: No Symptoms Immunological/Allergic: No Symptoms Medications & Allergies Home Medications: Home Medication List Allopurinol 100 mg [Zyloprim 100 mg] 100 mg PO DAILY 10/30/20 [History Confirmed 10/30/20] Cyclobenzaprine HCl [Flexeril] 10 mg PO BID 10/30/20 [History Confirmed 10/09 06/28] Fluticasone/Salmeterol 500/50* [Advair 500-50 Diskus] 1 puff IH BID 10/30/20 [History Confirmed 10/30/20] Glipizide 2.5 mg [Glucotrol Xl 2.5 MG] 2.5 mg PO DAILY PRN 10/30/20 [History Confirmed 10/30/20] Loratadine 10 mg [Claritin 10 mg] 10 mg PO DAILY 10/30/20 [History Confirmed 10/30/20] Pravastatin Sodium 20 mg PO HS 10/30/20 [History Confirmed 10/31/20] Simvastatin 10 mg [Zocor 10MG] 10 mg PO DAILY 10/30/20 [History Confirmed 10/30/20] Tiotropium Holder Inhaler [Spiriva 18 Mcg/Cap Inhaler] 2 puffs IH DAILY 10/30/20 [History Confirmed 10/30/20] Furosemide [Lasix] 40 mg PO DAILY PRN 10/31/20 [History Confirmed 10/31/20] Potassium Chloride [K-Dur] 10 meq PO DAILY PRN 10/31/20 [History Confirmed 10/31/20] Albuterol/Ipratropium 3ml Neb* [DUONEB 0.5-3 MG/3 ml Neb] 3 ml IH Q6HRT ampul.neb 11/01/20 [Rx] Levofloxacin [Levaquin] 500 mg PO DAILY #7 tablet 11/01/20 [Rx] Metronidazole 500 mg [Flagyl 500 MG] 250 mg PO TID 7 Days tablet 11/01/20 [Rx] Naproxen 375 mg [Naprosyn 375 mg] 375 mg PO BID tablet 11/01/20 [Rx] Prednisone 20 mg [Deltasone 20 mg] 60 mg PO DAILY 5 Days #25 tablet 11/01/20 [Rx] Allergies/Adverse Reactions: Allergies Allergy/AdvReac Type Severity Reaction Status Date / Time Penicillins Allergy Hives Verified 10/29/20 19:12 - Past Medical History Past Medical History: Yes Neurological History: No Pertinent History ENT History: No Pertinent History Cardiac History: Congestive Heart Failure, High Cholesterol Respiratory History: Asthma, Bronchitis, CHF, COPD Endocrine Medical History: No Pertinent History, Diabetes Type II Musculoskelatal History: No Pertinent History GI Medical History: No Pertinent History History: No Pertinent History Pyscho-Social History: No Pertinent History Reproductive Disorders: No Pertinent History Comment: GOUT, seasonal allergies, diabetes secondary to frequent steriod use. - Female History Are you now?: No - Past Surgical History Past Surgical History: Yes Cardiac History: No Pertinent History Respiratory Surgery: No Pertinent History GI Surgical History: Appendectomy, Cholecystectomy Musculskeletal Surgical Hx: Orthopedic Surgery Female Surgical History: Hysterectomy Other Surgical History: teeth removed, bunyonectomy, R hand had a crushing accident surgery to repair tendon involvement pinkie and ring finger on right hand bent at all times. - Social History Smoking Status: Current every day smoker How long have you smoked: years Exposure to second hand smoke: No Alcohol: None Drug Use: none - Physical Exam General Appearance: no apparent distress, alert Neurologic Exam: alert, oriented x 3, cooperative, normal mood/affect, nml cerebellar function, sensation nml, No motor deficits Eye Exam: PERRL/EOMI, eyes nml inspection Ears, Nose, Throat Exam: normal ENT inspection, pharynx normal, moist mucous membranes Neck Exam: normal inspection, non-tender, supple, full range of motion Respiratory Exam: prolonged expirations, wheezing Cardiovascular Exam: regular rate/rhythm, normal heart sounds, normal peripheral pulses Gastrointestinal/Abdomen Exam: soft, normal bowel sounds, No tenderness, No mass Back Exam: normal inspection, normal range of motion, No CVA tenderness, No vertebral tenderness Extremity Exam: normal inspection, normal range of motion, pelvis stable Skin Exam: normal color, warm, dry, No rash Lymphatic Exam: No adenopathy Results - Labs Lab/Micro Results: Microbiology 10/29/20 19:40 Blood Culture Gram Stain - Final Blood Not Reportable Blood Culture - Final NO GROWTH 10/29/20 19:45 Blood Culture Gram Stain - Final Blood Not Reportable Blood Culture - Final NO GROWTH Assessment/Plan (1) COPD exacerbation Status: Acute Code(s): J44.1 - CHRONIC OBSTRUCTIVE PULMONARY DISEASE W (ACUTE) EXACERBATION Hospital Summary - Hospital Course Hospital Course: Pt. admitted and started on iv antibiotics and steroids, she gradually improved over the next 3 days until she was back near her baseline and ready and comfortable for discharge to home. - Vitals & Intake/Output Vital Signs: Vital Signs Temperature 98.1 F 11/01/20 07:37 Pulse Rate 89 11/01/20 07:37 Respiratory Rate 16 11/01/20 07:37 Blood Pressure 128/68 11/01/20 07:37 O2 Sat by Pulse Oximetry 94 L 11/01/20 07:37 - Lab Result Diagrams: 11/01/20 05:30 11/01/20 05:30 Micro Results-Entire Visit: Microbiology 10/29/20 19:40 Blood Culture Gram Stain - Final Blood Not Reportable Blood Culture - Final NO GROWTH 10/29/20 19:45 Blood Culture Gram Stain - Final Blood Not Reportable Blood Culture - Final NO GROWTH - Procedures and Test Procedures and Tests throughout Hospitalization: Therapy Orders & Screens 10/29/20 19:20 BiPap/CPAP STAT Comment: 10/29/20 19:29 Respiratory Therapy Assessment DAILY Comment: 10/30/20 01:56 Oxygen Nasal Cannula 5 lpm Comment: Diagnosis: Acute on chronic hypoxic respiratory failure 10/31/20 13:37 Incentive Spirometry UD Comment: Diagnosis: Acute on chronic hypoxic respiratory failure - Discharge Discharge Date: 11/01/20 Disposition: Home, Self-Care Condition: Stable Prescriptions: New Prednisone 20 mg [Deltasone 20 mg] 60 mg PO DAILY 5 Days #25 tablet Albuterol/Ipratropium 3ml Neb* [DUONEB 0.5-3 MG/3 ml Neb] 3 ml IH Q6HRT ampul.neb Naproxen 375 mg [Naprosyn 375 mg] 375 mg PO BID tablet Metronidazole 500 mg [Flagyl 500 MG] 250 mg PO TID 7 Days tablet Levofloxacin [Levaquin] 500 mg PO DAILY #7 tablet Continue Pravastatin Sodium 20 mg PO HS Simvastatin 10 mg [Zocor 10MG] 10 mg PO DAILY Loratadine 10 mg [Claritin 10 mg] 10 mg PO DAILY Cyclobenzaprine HCl [Flexeril] 10 mg PO BID Tiotropium Holder Inhaler [Spiriva 18 Mcg/Cap Inhaler] 2 puffs IH DAILY Fluticasone/Salmeterol 500/50* [Advair 500-50 Diskus] 1 puff IH BID Allopurinol 100 mg [Zyloprim 100 mg] 100 mg PO DAILY Glipizide 2.5 mg [Glucotrol Xl 2.5 MG] 2.5 mg PO DAILY PRN PRN Reason: Hyperglycemia Furosemide [Lasix] 40 mg PO DAILY PRN PRN Reason: Shortness Of Breath Potassium Chloride [K-Dur] 10 meq PO DAILY PRN PRN Reason: Shortness Of Breath Instructions: Chronic Obstructive Pulmonary Disease (COPD) (DC) Additional Instructions: KEEP OXYGEN SATURATION LEVELS ABOVE 90% WITH HOME OXYGEN. Follow up with: MIKAYLA HENRIQUEZ [Primary Care Provider] - 11/12/20 1:30 pm
== END 2020-11-01 10:12 | disposition home or self-care (01) | DRG 190 ==
LOC: ED 18:56 → ICU 10-30 00:30 → MED SURG 10-31 11:09
PROVIDERS: ADMIT Family Medicine; ATTEND Family Medicine
DX: J44.1 Chronic obstructive pulmonary disease with (acute) exacerbation (principal); J18.9 Pneumonia, unspecified organism; R09.02 Hypoxemia; Z20.828 Contact with and (suspected) exposure to other viral communicable diseases; Z79.899 Other long term (current) drug therapy
CPT/HCPCS: 36000; 36415; 36600; 71045; 71260; 80048; 80053; 81001; 82375; 82803; 82947; 83605; 83735; 83880; 84145; 84484; 85025; 85027; 87040; 93005; 93041; 94002; 94640; 94762; 96360; 96365; 96374; 96375; 99285; 99291; J1650; J1817; J1956; J2930; U0003; A9270-GY

== ENCOUNTER 2020-11-08 11:06 | Emergency (ER) | payer OTHER ==
[2020-11-08] MEDS ORDERED: BABY ASPIRIN 81 MG CHEW PO ONE (11:42)
[2020-11-08] MEDS ORDERED: Zofran 4 MG/2 ML VIAL IV ONE (11:42)
[2020-11-08] MEDS ORDERED: solu-MEDROL 125 MG, Sterile H2O 10 ml 2 ML IV ONE ×2 (11:42)
[2020-11-08] MEDS ORDERED: MORPHINE SULFATE 4 MG INJ IV ONE (11:42)
[2020-11-08] MEDS ORDERED: solu-MEDROL ONE (11:48)
[2020-11-08] MEDS ORDERED: BABY ASPIRIN 81 MG CHEW ONE (11:48)
[2020-11-08] MEDS ORDERED: Sterile H2O 10 ml IJ ONE (11:48)
[2020-11-08] MEDS ORDERED: Zofran 4 MG/2 ML VIAL ONE (11:48)
[2020-11-08] MEDS ORDERED: MORPHINE SULFATE 4 MG INJ ONE (11:48)
--- NOTE | 2020-11-08 11:48 | ERPHSYRPT ---
- History of Present Illness Time Seen by Provider: 11/08/20 11:07 Source: patient Exam Limitations: no limitations Patient Subjective Stated Complaint: C/o "feeling feverlike", increased shortness of breath, and chest pressure. Triage Nursing Assessment: C/o sob, states "feels like I have fever", pressure in my chest". Released from hospital last week was admitted for pneumonia states patient. Patient aaox3, increased sob with exertion. Labored resp with exertion. color fair. afebrile at this time. no cough noted. Physician History: 65 years old female with history of tobacco use, chronic respiratory failure from COPD on 5 L oxygen, diabetes mellitus, congestive heart failure was recently admitted for COPD exacerbation/pneumonia presented back with increasing shortness of breath for the last 2 days with dry hacking cough and subjective feeling of fever and chills. Patient reports not using neb machine for the last 2 days and her chest seems tight with a pressure on it, 5 L oxygen does not seem enough to help her breathe normal at resting and with ambulation it gets way more worse. She also feels congested in the sinuses and frontal headache. Does have history of migraines with similar headaches in the past. Denies any numbness tingling focal weakness, visual symptoms, difficulty speech etc. Timing/Duration: day(s) (2), gradual onset, worse Activities at Onset: rest Severity of Dyspnea-Max: moderate Severity of Dyspnea-Current: moderate Possible Cause: occasional episodes Modifying Factors: Improves With: oxygen. Worsens With: activity, coughing, exertion Associated Symptoms: cough, chest pain/discomfort, wheezing, chills, heaviness, tightness, No leg swelling Allergies/Adverse Reactions: Penicillins Allergy (Verified 10/29/20 19:12) Hives Home Medications: Allopurinol 100 mg [Zyloprim 100 mg] 100 mg PO DAILY 10/30/20 [History] Cyclobenzaprine HCl [Flexeril] 10 mg PO BID 10/30/20 [History] Fluticasone/Salmeterol 500/50* [Advair 500-50 Diskus] 1 puff IH BID 10/30/20 [History] Glipizide 2.5 mg [Glucotrol Xl 2.5 MG] 2.5 mg PO DAILY PRN 10/30/20 [History] Loratadine 10 mg [Claritin 10 mg] 10 mg PO DAILY 10/30/20 [History] Pravastatin Sodium 20 mg PO HS 10/30/20 [History] Simvastatin 10 mg [Zocor 10MG] 10 mg PO DAILY 10/30/20 [History] Tiotropium Eighty Eight Inhaler [Spiriva 18 Mcg/Cap Inhaler] 2 puffs IH DAILY 10/30/20 [History] Furosemide [Lasix] 40 mg PO DAILY PRN 10/31/20 [History] Potassium Chloride [K-Dur] 10 meq PO DAILY PRN 10/31/20 [History] Hx Tetanus, Diphtheria Vaccination/Date Given: Yes Hx Influenza Vaccination/Date Given: Yes Hx Pneumococcal Vaccination/Date Given: Yes Travel Risk - International Travel Have you traveled outside of the country in past 3 weeks: No - Coronavirus Screening Are you exhibiting any of the following symptoms?: Yes Symptoms: Shortness of Breath Close contact with a COVID-19 positive Pt in past 14-21 Days: No - Vaccine Status Have you recieved a Covid-19 vaccination: No 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 - Vaccination Dates Dates if Unknown: not taken - Review of Systems Constitutional: Fever, Chills, Fatigue, Weakness Eyes: No Symptoms Ears, Nose, & Throat: Sinus Drainage Respiratory: Cough, Dyspnea, Wheezing Cardiac: Chest Pain Abdominal/Gastrointestinal: No Symptoms Genitourinary Symptoms: No Symptoms Musculoskeletal: No Symptoms Skin: No Symptoms Neurological: Headache Psychological: No Symptoms Endocrine: No Symptoms Hematologic/Lymphatic: No Symptoms Immunological/Allergic: No Symptoms - Past Medical History Pertinent Past Medical History: Yes Neurological History: No Pertinent History ENT History: No Pertinent History Cardiac History: Congestive Heart Failure, High Cholesterol Respiratory History: Asthma, Bronchitis, CHF, COPD Endocrine Medical History: No Pertinent History, Diabetes Type II Musculoskeletal History: No Pertinent History GI Medical History: No Pertinent History History: No Pertinent History Psycho-Social History: No Pertinent History Female Reproductive Disorders: No Pertinent History Other Medical History: GOUT, seasonal allergies, diabetes secondary to frequent steriod use. - Past Surgical History Past Surgical History: Yes Cardiac: No Pertinent History Respiratory: No Pertinent History Gastrointestinal: Appendectomy, Cholecystectomy Musculoskeletal: Orthopedic Surgery Female Surgical History: Hysterectomy Other Surgical History: teeth removed, bunyonectomy, R hand had a crushing accident surgery to repair tendon involvement pinkie and ring finger on right hand bent at all times. - Social History Smoking Status: Current every day smoker How long have you smoked: 50 yrs Exposure to second hand smoke: No Drug Use: none Patient Lives Alone: No - Female History Hx Now: No - Nursing Vital Signs Nursing Vital Signs: Initial Vital Signs Temperature 98.1 F 11/08/20 11:12 Pulse Rate 95 H 11/08/20 11:12 Respiratory Rate 28 H 11/08/20 11:12 Blood Pressure 139/74 11/08/20 11:12 O2 Sat by Pulse Oximetry 94 L 11/08/20 11:12 Pain Scale Pain Intensity 0 - Physical Exam General Appearance: no apparent distress, alert Eye Exam: PERRL/EOMI, eyes nml inspection Ears, Nose, Throat Exam: hearing grossly normal, pharyngeal erythema Neck Exam: normal inspection, non-tender, full range of motion Respiratory Exam: diminished breath sounds, rhonchi, wheezing Cardiovascular/Chest Exam: normal heart sounds, regular rate/rhythm Abdominal/Gastrointestinal Exam: soft, No tenderness Extremity Exam: non-tender, normal range of motion, normal inspection Neurologic Exam: alert, oriented x 3, cooperative, 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 tested, normal mood/affect, nml cerebellar function, nml station & gait, sensation nml, No motor deficits, No sensory deficit Skin Exam: normal color SpO2 Interpretation: normal SpO2: 94 O2 Delivery: Nasal Cannula - Course EKG Interpreted by Me: RATE (97), Sinus Rhythm, NORMAL AXIS, NORMAL INTERVALS, Q-wave (Inferior anterior) Ordered Tests: Active Orders 24 hr Category Date Time Status County Auditor STAT Care 11/08/20 11:42 Active EKG-ER Only STAT Care 11/08/20 11:42 Active IV Insertion STAT Care 11/08/20 11:42 Active Oxygen-ED Only Nasal Cannula 5 lpm Care 11/08/20 11:42 Active CHEST 1 VIEW (PORTABLE) Stat Exams 11/08/20 11:42 Taken BLOOD CULTURE Stat Lab 11/08/20 12:08 Received CBC W DIFF Stat Lab 11/08/20 12:00 Completed CMP Stat Lab 11/08/20 12:00 Completed CULTURE,URINE Stat Lab 11/08/20 11:42 Received Lactic Acid Stat Lab 11/08/20 11:42 Completed MAGNESIUM Stat Lab 11/08/20 12:00 Completed NT PRO BNP Stat Lab 11/08/20 12:00 Completed TROPONIN Q3H Lab 11/08/20 12:00 Completed TROPONIN Q3H Lab 11/08/20 14:45 Ordered TROPONIN Q3H Lab 11/08/20 17:45 Ordered TROPONIN Q3H Lab 11/08/20 20:45 Ordered TROPONIN Q3H Lab 11/08/20 23:45 Ordered UA W/RFX UR CULTURE Stat Lab 11/08/20 11:42 Completed Respiratory Therapy Assessment DAILY RT 11/08/20 11:59 Completed Medication Summary Generic Name Dose Route Start Last Admin Trade Name Freq PRN Reason Stop Dose Admin Levofloxacin/Dextrose 750 mg in 150 mls @ 100 mls/hr 11/08/20 13:39 Levofloxacin 750mg/150ml D5w IV 11/08/20 15:08 STAT STA Aztreonam 2 gm/ Sodium 100 mls @ 200 mls/hr 11/08/20 13:40 Chloride IV 11/08/20 14:09 STAT ONE Discontinued Medications Generic Name Dose Route Start Last Admin Trade Name Freq PRN Reason Stop Dose Admin Albuterol/Ipratropium 3 ml 11/08/20 11:42 11/08/20 11:58 Duoneb 0.5-3 Mg/3 Ml Neb IH 11/08/20 11:43 3 ml STAT ONE Administration Albuterol/Ipratropium Confirm 11/08/20 11:56 Duoneb 0.5-3 Mg/3 Ml Neb Administered 11/08/20 11:57 Dose 3 ml IH .STK-MED ONE Aspirin 324 mg 11/08/20 11:42 11/08/20 11:56 Baby Aspirin 81 Mg Chew PO 11/08/20 11:43 324 mg STAT ONE Administration Aspirin Confirm 11/08/20 11:48 Baby Aspirin 81 Mg Chew Administered 11/08/20 11:49 Dose 324 mg .ROUTE .STK-MED ONE Methylprednisolone Sodium 0 mg 11/08/20 11:42 11/08/20 11:59 Succinate 125 mg/ Sterile IV 11/08/20 11:43 125 mg Water 2 ml STAT ONE Administration Levofloxacin/Dextrose Confirm 11/08/20 13:48 Levofloxacin 750mg/150ml D5w Administered 11/08/20 13:49 Dose 750 mg in 150 mls @ ud IV .STK-MED ONE Methylprednisolone Sodium Succinate Confirm 11/08/20 11:48 Solu-Medrol Administered 11/08/20 11:49 Dose 125 mg .ROUTE .STK-MED ONE Morphine Sulfate 4 mg 11/08/20 11:42 11/08/20 12:05 Morphine Sulfate 4 Mg Inj IV 11/08/20 11:43 4 mg STAT ONE Administration Morphine Sulfate Confirm 11/08/20 11:48 Morphine Sulfate 4 Mg Inj Administered 11/08/20 11:49 Dose 4 mg .ROUTE .STK-MED ONE Ondansetron HCl 4 mg 11/08/20 11:42 11/08/20 11:57 Zofran 4 Mg/2 Ml Vial IV 11/08/20 11:43 4 mg STAT ONE Administration Ondansetron HCl Confirm 11/08/20 11:48 Zofran 4 Mg/2 Ml Vial Administered 11/08/20 11:49 Dose 4 mg .ROUTE .STK-MED ONE Sterile Water Confirm 11/08/20 11:48 Sterile H2o 10 Ml Administered 11/08/20 11:49 Dose 10 ml IJ .STK-MED ONE Lab/Rad Data: Laboratory Result Diagrams 11/08/20 12:00 11/08/20 12:00 Laboratory Results 11/08/20 11/08/20 11/08/20 Range/Units 12:00 12:00 12:00 WBC 8.7 (4.0-10.5) K/mm3 RBC 4.77 (4.1-5.4) M/mm3 Hgb 13.5 (12.0-16.0) gm/dl Hct 42.8 (35-47) % MCV 89.7 (78-100) fl MCH 28.3 (26-32) pg MCHC 31.5 L (32-36) g/dl RDW 15.5 H (11.5-14.0) % Plt Count 310 (150-450) K/mm3 MPV 10.3 (7.5-11.0) fl Gran % 61.2 (36.0-66.0) % Eos # (Auto) 0.06 (0-0.5) Absolute Lymphs (auto) 2.75 (1.0-4.6) Absolute Monos (auto) 0.57 (0.0-1.3) Lymphocytes % 31.5 (24.0-44.0) % Monocytes % 6.5 (0.0-12.0) % Eosinophils % 0.7 (0.00-5.0) % Basophils % 0.1 (0.0-0.4) % Absolute Granulocytes 5.33 (1.4-6.9) Basophils # 0.01 (0-0.4) Sodium 140 (137-145) mmol/L Potassium 4.1 (3.5-5.1) mmol/L Chloride 98 (98-107) mmol/L Carbon Dioxide 33 H (22-30) mmol/L Anion Gap 12.5 (5-15) MEQ/L BUN 9 (7-17) mg/dL Creatinine 0.44 L (0.52-1.04) mg/dL Estimated GFR > 60.0 ML/MIN Glucose 109 H (74-106) mg/dL Lactic Acid (0.4-2.0) Calcium 8.9 (8.4-10.2) mg/dL Magnesium 2.1 (1.6-2.3) mg/dL Total Bilirubin 0.10 L (0.2-1.3) mg/dL AST 24 (14-36) U/L ALT 14 (0-35) U/L Alkaline Phosphatase 59 (38-126) U/L Troponin I < 0.012 (0.000-0.034) ng/mL NT-Pro-B Natriuret Pep 179 (0-900) pg/mL Serum Total Protein 6.9 (6.3-8.2) g/dL Albumin 3.7 (3.5-5.0) g/dL Urine Color (YELLOW) Urine Appearance (CLEAR) Urine pH (5-6) Ur Specific Lucile (1.005-1.025) Urine Protein (Negative) Urine Ketones (NEGATIVE) Urine Blood (0-5) Koby/ul Urine Nitrite (NEGATIVE) Urine Bilirubin (NEGATIVE) Urine Urobilinogen (0-1) mg/dL Ur Leukocyte Esterase (NEGATIVE) Urine WBC (Auto) (0-5) /HPF Urine RBC (Auto) (0-2) /HPF U Epithel Cells (Auto) (FEW) /HPF Urine Bacteria (Auto) (NEGATIVE) /HPF Urine Culture Reflexed (NO) Urine Glucose (NEGATIVE) mg/dL 11/08/20 11/08/20 Range/Units 11:42 11:42 WBC (4.0-10.5) K/mm3 RBC (4.1-5.4) M/mm3 Hgb (12.0-16.0) gm/dl Hct (35-47) % MCV (78-100) fl MCH (26-32) pg MCHC (32-36) g/dl RDW (11.5-14.0) % Plt Count (150-450) K/mm3 MPV (7.5-11.0) fl Gran % (36.0-66.0) % Eos # (Auto) (0-0.5) Absolute Lymphs (auto) (1.0-4.6) Absolute Monos (auto) (0.0-1.3) Lymphocytes % (24.0-44.0) % Monocytes % (0.0-12.0) % Eosinophils % (0.00-5.0) % Basophils % (0.0-0.4) % Absolute Granulocytes (1.4-6.9) Basophils # (0-0.4) Sodium (137-145) mmol/L Potassium (3.5-5.1) mmol/L Chloride (98-107) mmol/L Carbon Dioxide (22-30) mmol/L Anion Gap (5-15) MEQ/L BUN (7-17) mg/dL Creatinine (0.52-1.04) mg/dL Estimated GFR ML/MIN Glucose (74-106) mg/dL Lactic Acid 0.9 (0.4-2.0) Calcium (8.4-10.2) mg/dL Magnesium (1.6-2.3) mg/dL Total Bilirubin (0.2-1.3) mg/dL AST (14-36) U/L ALT (0-35) U/L Alkaline Phosphatase (38-126) U/L Troponin I (0.000-0.034) ng/mL NT-Pro-B Natriuret Pep (0-900) pg/mL Serum Total Protein (6.3-8.2) g/dL Albumin (3.5-5.0) g/dL Urine Color YELLOW (YELLOW) Urine Appearance CLEAR (CLEAR) Urine pH 7.0 (5-6) Ur Specific Lucile 1.005 (1.005-1.025) Urine Protein NEGATIVE (Negative) Urine Ketones NEGATIVE (NEGATIVE) Urine Blood NEGATIVE (0-5) Koby/ul Urine Nitrite NEGATIVE (NEGATIVE) Urine Bilirubin NEGATIVE (NEGATIVE) Urine Urobilinogen NEGATIVE (0-1) mg/dL Ur Leukocyte Esterase NEGATIVE (NEGATIVE) Urine WBC (Auto) 3-5 (0-5) /HPF Urine RBC (Auto) 0-2 (0-2) /HPF U Epithel Cells (Auto) RARE (FEW) /HPF Urine Bacteria (Auto) RARE (NEGATIVE) /HPF Urine Culture Reflexed YES (NO) Urine Glucose NEGATIVE (NEGATIVE) mg/dL - Progress Progress: re-examined Air Movement: fair Progress Note: 11/08/20 14:08 65 years old is evaluated for worsening dyspnea and getting hypoxic with ambulation despite being on 5 L. She has been taking antibiotics orally since her discharge. She has a normal white count, grossly unremarkable chemistries. Chest x-ray still having bilateral airspace disease, recommended admission with IV antibiotics as patient is already on almost max nasal cannula oxygen. I believe patient would benefit with IV antibiotics steroids and frequent nebs. I went back to patient room to reassess her and inform about admission but she does not want to stay in the hospital at all. Patient states "I have a lot of things coming up this week and cannot stay in the hospital, I have appointment with primary care later this week and will discuss with him". She does not want to stay in the hospital at all and wants to leave AGAINST MEDICAL ADVICE. She understands the risk of worsening her condition with respiratory failure which can even be fatal but still wants to leave. She is not confused or altered at all. Blood Culture(s) Obtained: Yes Counseled pt/family regarding: lab results, diagnosis, rad results, smoking cessation - Departure Departure Disposition: AMA Clinical Impression: COPD exacerbation Bilateral pneumonia Qualifiers: Pneumonia type: due to unspecified organism Lung location: unspecified part of lung Qualified Code(s): J18.9 - Pneumonia, unspecified organism Condition: Fair Critical Care Time: No Referrals: MIKAYLA HENRIQUEZ [Primary Care Provider] - Instructions: Chronic Obstructive Pulmonary Disease
[2020-11-08] MEDS ORDERED: DUONEB 0.5-3 MG/3 ml Neb IH ONE (11:56)
[2020-11-08] MEDS: DUONEB 0.5-3 MG/3 ml Neb IH ONE ×2 (11:57→11:58)
[2020-11-08 12:09] LABS: Absolute Neutrophil Ct (ANC) 5.33 (1.4-6.9); BASOPHIL % 0.1 % (0.0-0.4); Basophil (Absolute #) 0.01 (0-0.4); Eosinophil % 0.7 % (0.00-5.0); Eosinophil (Absolute #) 0.06 (0-0.5); Hematocrit 42.8 % (35-47); Hemoglobin 13.5 gm/dl (12.0-16.0); Lymphocyte (Absolute #) 2.75 (1.0-4.6); Lymphocytes % 31.5 % (24.0-44.0); Mean Cell Volume 89.7 fl (78-100); Mean Corpuscular Hemoglobin 28.3 pg (26-32); Mean Corpuscular Hgb Concent. 31.5 g/dl (32-36); Mean Platelet Volume 10.3 fl (7.5-11.0); Monocyte (Absolute #) 0.57 (0.0-1.3); Monocytes % 6.5 % (0.0-12.0); Neutrophil % 61.2 % (36.0-66.0); Platelet Count 310 K/mm3 (150-450); Red Blood Count 4.77 M/mm3 (4.1-5.4); Red Cell Distribution Width 15.5 % (11.5-14.0); White Blood Count 8.7 K/mm3 (4.0-10.5)
[2020-11-08 12:31] LABS: ALBUMIN 3.7 g/dL (3.5-5.0); ALKALINE PHOSPHATASE 59 U/L (38-126); ANION GAP 12.5 MEQ/L (5-15); BLOOD UREA NITROGEN 9 mg/dL (7-17); CHLORIDE 98 mmol/L (98-107); Calcium 8.9 mg/dL (8.4-10.2); Carbon Dioxide 33 mmol/L (22-30); Creatinine 1 0.44 mg/dL (0.52-1.04); EST GLOMERULAR FILTRATION RATE > 60.0 ML/MIN; Glucose 109 mg/dL (74-106); MAGNESIUM 2.1 mg/dL (1.6-2.3); NT PRO BNP 179 pg/mL (0-900); Potassium 4.1 mmol/L (3.5-5.1); SGOT/AST 24 U/L (14-36); SGPT/ALT 14 U/L (0-35); SODIUM 140 mmol/L (137-145); Total Protein 6.9 g/dL (6.3-8.2)
[2020-11-08 13:35] LABS: Appearance CLEAR (CLEAR); Bacteria RARE /HPF (NEGATIVE); Bilirubin NEGATIVE (NEGATIVE); Blood NEGATIVE Ery/ul (0-5); Epithelial Cells RARE /HPF (FEW); Glucose NEGATIVE (NEGATIVE); Ketones NEGATIVE (NEGATIVE); Leukocyte Esterase NEGATIVE (NEGATIVE); Nitrite NEGATIVE (NEGATIVE); Protein,Urine Dip NEGATIVE (Negative); RBC 0-2 /HPF (0-2); Specific Gravity 1.005 (1.005-1.025); Urobilinogen NEGATIVE mg/dL (0-1)
[2020-11-08] MEDS ORDERED: LEVOFLOXACIN 750MG/150ML D5W 750 MG/150 ML BAG IV STA (13:39)
[2020-11-08] MEDS ORDERED: AZACTAM 1 GM*** 2 GM in Sodium Chloride 0.9% 100 ML BAG 100 ML IV ONE (13:40)
[2020-11-08] MEDS ORDERED: LEVOFLOXACIN 750 MG/150 ML IV ONE (13:48)
[2020-11-08] MEDS ORDERED: D5W IV ONE (13:48)
[2020-11-08 13:49] VITALS: BP 173/104; PULSE 112
[2020-11-08 14:11] VITALS: O2SAT 94
--- NOTE | 2020-11-08 17:30 | XRAY ---
Indication: Cough. Comparison: October 31, 2020. Portable chest demonstrates continued clearing of previous bilateral patchy interstitial alveolar opacities with minimal residual still present. Heart not enlarged. No new cardiopulmonary abnormalities.
== END 2020-11-08 14:12 | disposition left against medical advice (07) ==
LOC: ED 11:06
DX: J44.1 Chronic obstructive pulmonary disease with (acute) exacerbation (principal); J18.9 Pneumonia, unspecified organism; E11.9 Type 2 diabetes mellitus without complications; I50.9 Heart failure, unspecified; E78.00 Pure hypercholesterolemia, unspecified; Z79.899 Other long term (current) drug therapy
CPT/HCPCS: 36000; 36415; 71045; 80053; 81001; 83605; 83735; 83880; 84484; 85025; 87040; 87086; 93005; 93041; 94640; 96374; 96375; 99284; J1956; J2270; J2405; J2930; A9270-GY

== ENCOUNTER 2020-11-13 18:27 | Emergency (ER) | payer OTHER ==
--- NOTE | 2020-11-13 18:37 | ERPHSYRPT ---
- History of Present Illness Time Seen by Provider: 11/13/20 18:36 Source: patient, family Exam Limitations: no limitations Physician History: This is a morbidly obese 65-year-old white female patient of Dr. Henriquez who has a history of CHF, COPD, asthma and recurrent bronchitis who walks with a walker and slipped and fell yesterday. She is having pain when she uses her walker. She did hit the back of her head and complains of a headache at the same time yesterday. She is currently being treated for walking pneumonia. Patient wears oxygen via nasal cannula chronically. She denies chest pain. She has no abdominal pain. Method of Injury: fell Occurred: yesterday Quality: constant, aching Severity of Pain-Max: mild (To moderate) Severity of Pain-Current: mild (To moderate) Lower Extremities Pain: hip: right Modifying Factors: Improves With: movement Associated Symptoms: other (Hurts to bear weight) Allergies/Adverse Reactions: Penicillins Allergy (Verified 11/13/20 18:38) Hives Home Medications: Allopurinol 100 mg [Zyloprim 100 mg] 100 mg PO DAILY 10/30/20 [History] Cyclobenzaprine HCl [Flexeril] 10 mg PO BID 10/30/20 [History] Fluticasone/Salmeterol 500/50* [Advair 500-50 Diskus] 1 puff IH BID 10/30/20 [History] Glipizide 2.5 mg [Glucotrol Xl 2.5 MG] 2.5 mg PO DAILY PRN 10/30/20 [History] Loratadine 10 mg [Claritin 10 mg] 10 mg PO DAILY 10/30/20 [History] Pravastatin Sodium 20 mg PO HS 10/30/20 [History] Simvastatin 10 mg [Zocor 10MG] 10 mg PO DAILY 10/30/20 [History] Tiotropium Emmet Inhaler [Spiriva 18 Mcg/Cap Inhaler] 2 puffs IH DAILY 10/30/20 [History] Furosemide [Lasix] 40 mg PO DAILY PRN 10/31/20 [History] Potassium Chloride [K-Dur] 10 meq PO DAILY PRN 10/31/20 [History] Hx Tetanus, Diphtheria Vaccination/Date Given: Yes Hx Influenza Vaccination/Date Given: Yes Hx Pneumococcal Vaccination/Date Given: Yes Travel Risk - International Travel Have you traveled outside of the country in past 3 weeks: No - Coronavirus Screening Are you exhibiting any of the following symptoms?: No Close contact with a COVID-19 positive Pt in past 14-21 Days: No - Vaccine Status Have you recieved a Covid-19 vaccination: No 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 - Vaccination Dates Dates if Unknown: not taken - Review of Systems Constitutional: No Symptoms Eyes: No Symptoms Ears, Nose, & Throat: No Symptoms Respiratory: No Symptoms Cardiac: No Symptoms Abdominal/Gastrointestinal: No Symptoms Genitourinary Symptoms: No Symptoms Musculoskeletal: Fall, Injury (Right hip) Skin: No Symptoms Neurological: No Symptoms Psychological: No Symptoms Endocrine: No Symptoms Hematologic/Lymphatic: No Symptoms Immunological/Allergic: No Symptoms All Other Systems: Reviewed and Negative - Past Medical History Pertinent Past Medical History: Yes Neurological History: No Pertinent History ENT History: No Pertinent History Cardiac History: Congestive Heart Failure, High Cholesterol Respiratory History: Asthma, Bronchitis, CHF, COPD Endocrine Medical History: No Pertinent History, Diabetes Type II Musculoskeletal History: No Pertinent History GI Medical History: No Pertinent History History: No Pertinent History Psycho-Social History: No Pertinent History Female Reproductive Disorders: No Pertinent History Other Medical History: GOUT, seasonal allergies, diabetes secondary to frequent steriod use. - Past Surgical History Past Surgical History: Yes Cardiac: No Pertinent History Respiratory: No Pertinent History Gastrointestinal: Appendectomy, Cholecystectomy Musculoskeletal: Orthopedic Surgery Female Surgical History: Hysterectomy Other Surgical History: teeth removed, bunyonectomy, R hand had a crushing accident surgery to repair tendon involvement pinkie and ring finger on right hand bent at all times. - Social History Smoking Status: Current every day smoker How long have you smoked: 50 yrs Exposure to second hand smoke: No Drug Use: none Patient Lives Alone: No - Nursing Vital Signs Nursing Vital Signs: Initial Vital Signs Temperature 97.2 F 11/13/20 18:30 Pulse Rate 111 H 11/13/20 18:30 Blood Pressure 173/89 11/13/20 18:30 O2 Sat by Pulse Oximetry 94 L 11/13/20 18:30 Pain Scale Pain Intensity 10 - Physical Exam General Appearance: no apparent distress, alert, anxiety, obese Eyes, Ears, Nose, Throat Exam: normal ENT inspection, moist mucous membranes Neck Exam: normal inspection, non-tender, supple, full range of motion Cardiovascular/Respiratory Exam: chest non-tender, no respiratory distress Gastrointestinal/Abdominal Exam: non-tender Back Exam: normal inspection, normal range of motion, No CVA tenderness, No vertebral tenderness Hips Exam: right: soft tissue tenderness (To palpation), left: non-tender, bilateral: normal inspection, normal range of motion, no evidence of injury Legs Exam: bilateral leg: non-tender, normal inspection, normal range of motion, no evidence of injury Knees Exam: bilateral knee: non-tender, normal inspection, normal range of motion, no evidence of injury Foot Exam: bilateral foot: non-tender, normal inspection, normal range of motion, no evidence of injury Neuro/Tendon Exam: normal sensation, normal motor functions, normal tendon functions, responds to pain Mental Status Exam: alert, oriented x 3, cooperative Skin Exam: normal color, warm, dry SpO2 Interpretation: normal O2 Delivery: Nasal Cannula Ordered Tests: Active Orders 24 hr Category Date Time Status FEMUR Stat Exams 11/13/20 19:03 Taken HEAD WITHOUT CONTRAST [CT] Stat Exams 11/13/20 19:01 Taken HIP UNI (2V) INCL PEL IF DONE Stat Exams 11/13/20 18:45 Taken - Progress Progress: improved, pain not gone completely, re-examined Progress Note: 11/13/20 20:02 CAT scan of the head without contrast shows no evidence of any acute intracranial abnormality/hemorrhage. No acute fracture present. X-ray of pelvis reveals no evidence of any acute fracture or dislocation. X-ray of right hip reveals no evidence of any acute fracture or dislocation. X-ray of right femur reveals no evidence of any acute fracture or dislocation. Counseled pt/family regarding: lab results, diagnosis, need for follow-up, rad results - Departure Departure Disposition: Home Clinical Impression: Fall with no significant injury, Contusion Condition: Stable Critical Care Time: No Referrals: MIKAYLA HENRIQUEZ [Primary Care Provider] - Additional Instructions: Ice pack to tender areas 3 times a day. Rest but when up and ambulating use your walker. Call your primary prescribing doctor on 11/16/2020, to obtain a follow-up appointment. If your x-ray over read tomorrow morning is different than tonight's x-ray reading, you will be contacted tomorrow prior to noon. Prescriptions: Hydrocodone/APAP 5/325 [Temple 5/325 mg] 1 each PO Q8H PRN PRN #8 tablet MDD 3 PRN Reason: Pain
[2020-11-13] MEDS ORDERED: NORCO 5/325 MG PO ONE (20:12)
[2020-11-13] MEDS ORDERED: Hydromorphone 1 mg/ml Injection IM ONE (20:13)
[2020-11-13] MEDS ORDERED: Norflex 60 MG/2 ML IM ONE (20:13)
[2020-11-13] MEDS ORDERED: ZOFRAN ODT 4 MG PO ONE (20:14)
[2020-11-13] MEDS ORDERED: Norflex 60 MG/2 ML ONE (20:32)
[2020-11-13] MEDS ORDERED: NORCO 5/325 MG ONE (20:32)
[2020-11-13] MEDS ORDERED: ZOFRAN ODT 4 MG ONE (20:32)
[2020-11-13] MEDS ORDERED: Hydromorphone 1 mg/ml Injection ONE (20:33)
[2020-11-13 20:57] VITALS: BP 130/72; PULSE 95; O2SAT 95
--- NOTE | 2020-11-13 21:30 | XRAY ---
Indication: Posterior head pain following fall. Comparison: None Age-appropriate global atrophy and mild/moderate periventricular degenerative micro-ischemia bilaterally. No acute intracranial hemorrhage, abnormal extra-axial fluid collection, or mass effect. Fourth ventricle is midline without hydrocephalus. Bony calvarium intact. Visualized paranasal sinuses and mastoid air cells are clear. Impression: Normal aging brain including atrophy and degenerative micro-ischemia. No acute intracranial abnormalities. Comment: Preliminary interpretation made by [facility]. No critical discrepancy.
--- NOTE | 2020-11-13 21:32 | XRAY ---
Indication: Pain following fall. Comparison: None AP pelvis and 2 view right hip demonstrates osteopenia, old femur neck fracture, and old left inferior pubic ramus fracture. No other bony, articular, or soft tissue abnormalities.
--- NOTE | 2020-11-13 21:34 | XRAY ---
Indication: Pain following fall. Comparison: None 2 view right femur demonstrates osteopenia, old femur neck fracture, and small posterior knee fabella. No other bony, articular, or soft tissue abnormalities.
== END 2020-11-13 20:57 | disposition home or self-care (01) ==
LOC: ED 18:27
DX: S00.03XA Contusion of scalp, initial encounter (principal); W01.10XA Fall on same level from slipping, tripping and stumbling with subsequent striking against unspecified object, initial encounter; Y93.01 Activity, walking, marching and hiking; Y92.89 Other specified places as the place of occurrence of the external cause; I50.9 Heart failure, unspecified; Z79.899 Other long term (current) drug therapy; J44.9 Chronic obstructive pulmonary disease, unspecified; E11.9 Type 2 diabetes mellitus without complications; E78.00 Pure hypercholesterolemia, unspecified
CPT/HCPCS: 70450; 73502; 73552; 96372; 99284; J1170; J2360; Q0162; A9270-GY

== ENCOUNTER 2023-03-13 17:38 | Emergency (ER) | payer MEDICARE ==
[2023-03-13 17:46] VITALS: TEMP 97.5
[2023-03-13] MEDS ORDERED: Zithromax 500 MG/ 250 ML NaCl Premix 500 MG/250 ML IVPB IV STA (17:50)
[2023-03-13] MEDS ORDERED: DUONEB 0.5-3 MG/3 ml Neb IH ONE ×2 (17:50→17:52)
[2023-03-13] MEDS ORDERED: solu-MEDROL 125 MG, Sterile H2O 10 ml 2 ML IV ONE ×2 (17:50)
[2023-03-13] MEDS ORDERED: Sodium Chloride 0.9% 1000 ML 1,000 ML ONE (17:56)
[2023-03-13] MEDS ORDERED: Zithromax 500 MG/ 250 ML NaCl Premix 500 MG/250 ML IVPB IV ONE (17:56)
[2023-03-13] MEDS ORDERED: solu-MEDROL ONE (17:56)
[2023-03-13] MEDS ORDERED: Sterile H2O 10 ml IJ ONE (17:56)
[2023-03-13] MEDS ORDERED: Sodium Chloride 0.9% 1000 ML 1,000 ML IV SCH (18:00)
[2023-03-13 18:05] LABS: VBG BASE EXCESS 3.9 (-2.0-2.0); VBG CARBOXYHEMOGLOBIN 10.8 % T HGB (0.0-6.9); VBG HCO3- 29.7 meq/L (22-28); VBG HEMOGLOBIN 14.4; VBG O2 SATURATION 78.2 (95-100); VBG POTASSIUM 3.6 (3.5-5.1); VBG pH 7.4 (7.32-7.42)
--- NOTE | 2023-03-13 18:30 | ERPHSYRPT ---
- History of Present Illness Source: patient Exam Limitations: no limitations Patient Subjective Stated Complaint: pt here for increase sob for several days, she is out of her oxygen for over a month ago. fever last night, productive cough Triage Nursing Assessment: pt alert, sob with excertion, skin w/d/p. has congested cough. skin w/d/p. no edema noted, Timing/Duration: day(s) (3) Activities at Onset: none Severity of Dyspnea-Max: moderate Severity of Dyspnea-Current: mild Possible Cause: occasional episodes Modifying Factors: Improves With: albuterol inhaler, albuterol nebulizer, oxygen Associated Symptoms: heaviness Hx Tetanus, Diphtheria Vaccination/Date Given: No Hx Influenza Vaccination/Date Given: No Hx Pneumococcal Vaccination/Date Given: Yes Immunizations Up to Date: Yes <BOGDAN BRUNSON - Last Filed: 03/13/23 18:33> <DAVID REYES - Last Filed: 03/13/23 20:09> - History of Present Illness Time Seen by Provider: 03/13/23 17:55 Physician History: Patient is a [id number]-year-old white female who presents with a complaint of being sick for several days with a cold-like symptoms. She has had a cold with sputum production which is clear fever and sweats and chills. She is a victim of COPD and normally has 4 L nasal cannula chronically however she has been off of that for almost 1 month. She recently moved here from [place] and has apparently not established with a physician or primary care. She takes very little medicine - primarily Tradjenta and Atrovent. (BOGDAN BRUNSON) Allergies/Adverse Reactions: Penicillins Allergy (Verified 03/13/23 17:41) Hives Home Medications: Allopurinol 100 mg [Zyloprim 100 mg] 100 mg PO DAILY 10/30/20 [History] Albuterol 8 gm Mdi Hfa [Ventolin Hfa MDI] 8 gm IH QID PRN 03/13/23 [History] Travel Risk - International Travel Have you traveled outside of the country in past 3 weeks: No - Coronavirus Screening Are you exhibiting any of the following symptoms?: No Close contact with a COVID-19 positive Pt in past 14-21 Days: No - Vaccine Status Have you recieved a Covid-19 vaccination: Yes [employer]: Unknown - Vaccination Dates Date of 2cond Vaccination (if applicable): 2020 Dates if Unknown: ? <LEWISFRANCKBOGDAN - Last Filed: 03/13/23 18:33> - Review of Systems Constitutional: No Fever, No Chills Eyes: No Symptoms Ears, Nose, & Throat: No Symptoms Respiratory: No Cough, No Dyspnea Cardiac: No Chest Pain, No Edema, No Syncope Abdominal/Gastrointestinal: No Abdominal Pain, No Nausea, No Vomiting, No Diarrhea Genitourinary Symptoms: No Dysuria Musculoskeletal: No Back Pain, No Neck Pain Skin: No Rash Neurological: No Dizziness, No Focal Weakness, No Sensory Changes Psychological: No Symptoms Endocrine: No Symptoms All Other Systems: Reviewed and Negative <BOGDAN BRUNSON - Last Filed: 03/13/23 18:33> - Past Medical History Pertinent Past Medical History: Yes Neurological History: No Pertinent History ENT History: No Pertinent History Cardiac History: Congestive Heart Failure, High Cholesterol Respiratory History: Asthma, Bronchitis, CHF, COPD Endocrine Medical History: No Pertinent History, Diabetes Type II Musculoskeletal History: No Pertinent History GI Medical History: No Pertinent History History: No Pertinent History Psycho-Social History: No Pertinent History Female Reproductive Disorders: No Pertinent History Other Medical History: GOUT, seasonal allergies, diabetes secondary to frequent steriod use. - Past Surgical History Past Surgical History: Yes Cardiac: No Pertinent History Respiratory: No Pertinent History Gastrointestinal: Appendectomy, Cholecystectomy Musculoskeletal: Orthopedic Surgery Female Surgical History: Hysterectomy Other Surgical History: teeth removed, bunyonectomy, R hand had a crushing accident surgery to repair tendon involvement pinkie and ring finger on right hand bent at all times. - Social History Smoking Status: Current every day smoker How long have you smoked: 50 yrs Exposure to second hand smoke: Yes Drug Use: marijuana Patient Lives Alone: No <BOGDAN BRUNSON - Last Filed: 03/13/23 18:33> - Physical Exam General Appearance: moderate distress Eye Exam: PERRL/EOMI Neck Exam: normal inspection, supple Respiratory Exam: respiratory distress, airway intact, crackles/rales, rhonchi, wheezing Cardiovascular/Chest Exam: normal heart sounds, regular rate/rhythm Abdominal/Gastrointestinal Exam: soft, No tenderness, No distention, No mass Extremity Exam: non-tender, normal range of motion, normal inspection, no calf tenderness, no pedal edema Lymphatic Exam: inguinal node tender (L) SpO2 Interpretation: hypoxic, O2 applied SpO2: 98 O2 Delivery: Nasal Cannula <BOGDAN BRUNSON - Last Filed: 03/13/23 18:33> - Nursing Vital Signs Nursing Vital Signs: Initial Vital Signs Respiratory Rate 24 03/13/23 17:43 O2 Sat by Pulse Oximetry 90 L 03/13/23 17:43 Pain Scale Pain Intensity 0 - Course Nursing assessment & vital signs reviewed: Yes EKG Interpreted by Me: RATE, Sinus Rhythm, NORMAL AXIS, Non-specific ST Changes, Other (Nonspecific ST-T wave changes inferior infarct and anteroseptal infarct possibly age indeterminant.) - Radiology Exams Chest X-ray Interpretation: Interpreted by me, Other (COPD no acute changes noted.) <BOGDAN BRUNSON - Last Filed: 03/13/23 18:33> Ordered Tests: Active Orders 24 hr Category Date Time Status Firesetter STAT Care 03/13/23 17:54 Active EKG-ER Only STAT Care 03/13/23 17:50 Active IV Insertion STAT Care 03/13/23 17:54 Active Oxygen-ED Only Nasal Cannula 4 lpm Care 03/13/23 17:54 Active CHEST 1 VIEW (PORTABLE) Stat Exams 03/13/23 17:51 Taken BLOOD CULTURE Stat Lab 03/13/23 18:08 Received CBC W DIFF Stat Lab 03/13/23 17:40 Completed CMP Stat Lab 03/13/23 17:40 Completed D-DIMER QUANTITATIVE Stat Lab 03/13/23 17:40 Completed Lactic Acid Stat Lab 03/13/23 17:50 Completed NT PRO BNPII Stat Lab 03/13/23 18:08 Completed TROPONIN Q4H Lab 03/13/23 17:40 Completed TROPONIN Q4H Lab 03/13/23 22:00 Ordered TROPONIN Q4H Lab 03/14/23 02:00 Ordered UA W/RFX UR CULTURE Stat Lab 03/13/23 17:50 Ordered VENOUS BLOOD GAS Stat Lab 03/13/23 17:51 Completed Respiratory Therapy Assessment DAILY RT 03/13/23 17:57 Active Medication Summary Generic Name Dose Route Start Last Admin Trade Name Freq PRN Reason Stop Dose Admin Sodium Chloride 1,000 mls @ 100 mls/hr 03/13/23 18:00 03/13/23 18:02 Sodium Chloride 0.9% 1000 Ml IV 04/12/23 17:59 100 mls/hr .Q10H CORAL Administration Discontinued Medications Generic Name Dose Route Start Last Admin Trade Name Cristian PRN Reason Stop Dose Admin Albuterol/Ipratropium 3 ml 03/13/23 17:50 03/13/23 17:55 Ipratropium/Albuterol Sulfate 3 Ml Ampul.Neb IH 03/13/23 17:51 3 ml STAT ONE Administration Albuterol/Ipratropium Confirm 03/13/23 17:52 Ipratropium/Albuterol Sulfate 3 Ml Ampul.Neb Administered 03/13/23 17:53 Dose 3 ml IH .STK-MED ONE Methylprednisolone Sodium 0 mg 03/13/23 17:50 03/13/23 18:02 Succinate 125 mg/ Sterile IV 03/13/23 17:51 125 mg Water 2 ml STAT ONE Administration Azithromycin 500 mg in 250 mls @ 250 mls/hr 03/13/23 17:50 03/13/23 19:07 Zithromax 500 Mg/ 250 Ml Nacl Premix IV 03/13/23 18:49 Infused STAT STA Infusion Azithromycin Confirm 03/13/23 17:56 Zithromax 500 Mg/ 250 Ml Nacl Premix Administered 03/13/23 17:57 Dose 500 mg in 250 mls @ ud IV .STK-MED ONE Methylprednisolone Sodium Succinate Confirm 03/13/23 17:56 Methylprednis Sod Succ 125 Mg/2 Ml Vial Administered 03/13/23 17:57 Dose 125 mg .ROUTE .STK-MED ONE Sterile Water Confirm 03/13/23 17:56 Water For Injection,Sterile 10 Ml Vial Administered 03/13/23 17:57 Dose 10 ml IJ .STK-MED ONE Lab/Rad Data: Laboratory Result Diagrams 03/13/23 17:40 03/13/23 17:40 Laboratory Results 03/13/23 03/13/23 03/13/23 Range/Units 18:10 18:08 17:51 WBC (4.0-10.5) x10^3/uL RBC (4.1-5.4) x10^6/uL Hgb (12.0-16.0) g/dL Hct (35-47) % MCV (78-100) fL MCH (26-32) pg MCHC (32-36) g/dL RDW (11.5-14.0) % Plt Count (150-450) x10^3/uL MPV (7.5-11.0) fL Gran % (36.0-66.0) % Immature Gran % (Auto) (0.00-0.4) % Nucleat RBC Rel Count (0.00-0.1) % Eos # (Auto) (0-0.5) x10^3/uL Immature Gran # (Auto) (0.00-0.03) x10^3u/L Absolute Lymphs (auto) (1.0-4.6) x10^3/uL Absolute Monos (auto) (0.0-1.3) x10^3/uL Absolute Nucleated RBC (0.00-0.01) x10^3u/L Lymphocytes % (24.0-44.0) % Monocytes % (0.0-12.0) % Eosinophils % (0.00-5.0) % Basophils % (0.0-0.4) % Absolute Granulocytes (1.4-6.9) x10^3/uL Basophils # (0-0.4) x10^3/uL D-Dimer (0.0-0.50) mg/L pO2/FiO2 Ratio 21.0 % VBG pH 7.40 (7.32-7.42) VBG pCO2 at Pat Temp 48 (42-55) mm/Hg VBG pO2 at Pat Temp 42 H (25-40) mm/Hg VBG HCO3 29.7 H* (22-28) meq/L VBG O2 Sat (Maria Fernanda) 78.2 L (95-100) VBG Base Excess 3.9 H (-2.0-2.0) VBG Hemoglobin 14.4 VBG Carboxyhemoglobin 10.8 H* (0.0-6.9) % T HGB POC Potassium 3.6 (3.5-5.1) Sodium (137-145) mmol/L Potassium (3.5-5.1) mmol/L Chloride (98-107) mmol/L Carbon Dioxide (22-30) mmol/L Anion Gap (5-15) MEQ/L BUN (7-17) mg/dL Creatinine (0.52-1.04) mg/dL Estimated GFR ML/MIN Glucose (74-106) mg/dL Lactic Acid (0.4-2.0) Calcium (8.4-10.2) mg/dL Total Bilirubin (0.2-1.3) mg/dL AST (14-36) U/L ALT (0-35) U/L Alkaline Phosphatase (38-126) U/L Troponin I (0.000-0.034) ng/mL NT-Pro-B Natriuret Pep 196 (<300) pg/mL Serum Total Protein (6.3-8.2) g/dL Albumin (3.5-5.0) g/dL Influenza Type A Ag NEGATIVE (NEGATIVE) Influenza Type B Ag NEGATIVE (NEGATIVE) RSV (PCR) NEGATIVE (NEGATIVE) SARS-CoV-2 (PCR) POSITIVE A (NEGATIVE) 03/13/23 03/13/23 03/13/23 Range/Units 17:50 17:40 17:40 WBC (4.0-10.5) x10^3/uL RBC (4.1-5.4) x10^6/uL Hgb (12.0-16.0) g/dL Hct (35-47) % MCV (78-100) fL MCH (26-32) pg MCHC (32-36) g/dL RDW (11.5-14.0) % Plt Count (150-450) x10^3/uL MPV (7.5-11.0) fL Gran % (36.0-66.0) % Immature Gran % (Auto) (0.00-0.4) % Nucleat RBC Rel Count (0.00-0.1) % Eos # (Auto) (0-0.5) x10^3/uL Immature Gran # (Auto) (0.00-0.03) x10^3u/L Absolute Lymphs (auto) (1.0-4.6) x10^3/uL Absolute Monos (auto) (0.0-1.3) x10^3/uL Absolute Nucleated RBC (0.00-0.01) x10^3u/L Lymphocytes % (24.0-44.0) % Monocytes % (0.0-12.0) % Eosinophils % (0.00-5.0) % Basophils % (0.0-0.4) % Absolute Granulocytes (1.4-6.9) x10^3/uL Basophils # (0-0.4) x10^3/uL D-Dimer 0.63 H* (0.0-0.50) mg/L pO2/FiO2 Ratio % VBG pH (7.32-7.42) VBG pCO2 at Pat Temp (42-55) mm/Hg VBG pO2 at Pat Temp (25-40) mm/Hg VBG HCO3 (22-28) meq/L VBG O2 Sat (Maria Fernanda) (95-100) VBG Base Excess (-2.0-2.0) VBG Hemoglobin VBG Carboxyhemoglobin (0.0-6.9) % T HGB POC Potassium (3.5-5.1) Sodium (137-145) mmol/L Potassium (3.5-5.1) mmol/L Chloride (98-107) mmol/L Carbon Dioxide (22-30) mmol/L Anion Gap (5-15) MEQ/L BUN (7-17) mg/dL Creatinine (0.52-1.04) mg/dL Estimated GFR ML/MIN Glucose (74-106) mg/dL Lactic Acid 1.1 (0.4-2.0) Calcium (8.4-10.2) mg/dL Total Bilirubin (0.2-1.3) mg/dL AST (14-36) U/L ALT (0-35) U/L Alkaline Phosphatase (38-126) U/L Troponin I < 0.012 (0.000-0.034) ng/mL NT-Pro-B Natriuret Pep (<300) pg/mL Serum Total Protein (6.3-8.2) g/dL Albumin (3.5-5.0) g/dL Influenza Type A Ag (NEGATIVE) Influenza Type B Ag (NEGATIVE) RSV (PCR) (NEGATIVE) SARS-CoV-2 (PCR) (NEGATIVE) 03/13/23 03/13/23 Range/Units 17:40 17:40 WBC 7.3 (4.0-10.5) x10^3/uL RBC 4.87 (4.1-5.4) x10^6/uL Hgb 14.1 (12.0-16.0) g/dL Hct 43.3 (35-47) % MCV 88.9 (78-100) fL MCH 29.0 (26-32) pg MCHC 32.6 (32-36) g/dL RDW 14.9 H (11.5-14.0) % Plt Count 217 (150-450) x10^3/uL MPV 10.6 (7.5-11.0) fL Gran % 57.5 (36.0-66.0) % Immature Gran % (Auto) 0.4 (0.00-0.4) % Nucleat RBC Rel Count 0.0 (0.00-0.1) % Eos # (Auto) 0 (0-0.5) x10^3/uL Immature Gran # (Auto) 0.03 (0.00-0.03) x10^3u/L Absolute Lymphs (auto) 2.49 (1.0-4.6) x10^3/uL Absolute Monos (auto) 0.57 (0.0-1.3) x10^3/uL Absolute Nucleated RBC 0.00 (0.00-0.01) x10^3u/L Lymphocytes % 34.0 (24.0-44.0) % Monocytes % 7.8 (0.0-12.0) % Eosinophils % 0.0 (0.00-5.0) % Basophils % 0.3 (0.0-0.4) % Absolute Granulocytes 4.21 (1.4-6.9) x10^3/uL Basophils # 0.02 (0-0.4) x10^3/uL D-Dimer (0.0-0.50) mg/L pO2/FiO2 Ratio % VBG pH (7.32-7.42) VBG pCO2 at Pat Temp (42-55) mm/Hg VBG pO2 at Pat Temp (25-40) mm/Hg VBG HCO3 (22-28) meq/L VBG O2 Sat (Maria Fernanda) (95-100) VBG Base Excess (-2.0-2.0) VBG Hemoglobin VBG Carboxyhemoglobin (0.0-6.9) % T HGB POC Potassium (3.5-5.1) Sodium 137 (137-145) mmol/L Potassium 3.5 (3.5-5.1) mmol/L Chloride 102 (98-107) mmol/L Carbon Dioxide 27 (22-30) mmol/L Anion Gap 11.3 (5-15) MEQ/L BUN 16 (7-17) mg/dL Creatinine 0.56 (0.52-1.04) mg/dL Estimated GFR 100.6 ML/MIN Glucose 112 H (74-106) mg/dL Lactic Acid (0.4-2.0) Calcium 9.1 (8.4-10.2) mg/dL Total Bilirubin 0.20 (0.2-1.3) mg/dL AST 21 (14-36) U/L ALT 14 (0-35) U/L Alkaline Phosphatase 81 (38-126) U/L Troponin I (0.000-0.034) ng/mL NT-Pro-B Natriuret Pep (<300) pg/mL Serum Total Protein 7.4 (6.3-8.2) g/dL Albumin 4.1 (3.5-5.0) g/dL Influenza Type A Ag (NEGATIVE) Influenza Type B Ag (NEGATIVE) RSV (PCR) (NEGATIVE) SARS-CoV-2 (PCR) (NEGATIVE) - Progress Progress: improved Air Movement: good Blood Culture(s) Obtained: No Antibiotics given: Yes <BOGDAN BRUNSON - Last Filed: 03/13/23 18:33> - Progress Counseled pt/family regarding: lab results, diagnosis, need for follow-up, rad results <DAVID REYES - Last Filed: 03/13/23 20:09> - Progress Progress Note: 03/13/23 20:02 The chest x-ray was interpreted by Dr. Brunson. I agree with his interpretation and that I am not convinced there is significant change from prior chest x-ray. There are chronic changes. I do not appreciate an infiltrate. The patient is supposed to be on oxygen. [place] She was instructed to contact [facility] tomorrow morning. We are also having respiratory therapy evaluate her and see if there is anything we can do for her as an outpatient tonight. Patient is are received azithromycin intravenously as well as Solu-Medrol 125 mg intravenously. I will review remotely send prescriptions for hydrocodone cough medicine, Z-Jacky, prednisone 10 mg. Patient was instructed to use her inhaler every 4 hours while awake for the next 48 hours. 03/13/23 20:04 Patient is positive for COVID-19 infection. I am not convinced and I have a low index of suspicion that the patient has a pulmonary embolus. Her symptoms are likely secondary to the COVID-19 infection. We are aware that in patients with COVID-19 infection this D-dimer can be elevated. Hers is slightly elevated. Her troponin is normal as is her BNP. 03/13/23 20:08 I was just notified that respiratory therapy is going to send a tank of oxygen at home with the patient fabio. She will then call [facility] tomorrow morning and make arrangements for outpatient supply of home oxygen. Patient's oxygen saturation level on her usual 4 L of oxygen via nasal cannula is 96 to 97%. (DAVID REYES) Medical Desision Making - Diagnostic Testing Diagnostic test were ordered, analyzed, and reviewed by me: Yes Radiological Interpretation: Interpreted by me <BOGDAN BRUNSON - Last Filed: 03/13/23 18:33> - Diagnostic Testing Diagnostic test were ordered, analyzed, and reviewed by me: Yes Radiological Interpretation: Reviewed by me, Teleradiologist Report - Risk of complications The pt has a mod risk of morbidity or mortality based on: Need for prescription drug management <DAVID REYES - Last Filed: 03/13/23 20:09> - Departure Departure Disposition: Home Critical Care Time: No <BOGDAN BRUNSON - Last Filed: 03/13/23 18:33> <DAVID REYES - Last Filed: 03/13/23 20:09> - Departure Clinical Impression: COPD exacerbation, COVID-19 virus infection Condition: Stable Referrals: MIKAYLA HENRIQUEZ MD [ACTIVE STAFF] - Follow up/PCP as directed Instructions: Chronic Obstructive Pulmonary Disease, Exacerbation of COPD (DC) Additional Instructions: Drink plenty fluids. Avoid any exposure to any type of smoke. Use your albuterol inhaler every 4 hours while awake. Take your medications as prescribed. Call [facility] tomorrow morning, 03/14/2023, to discuss obtaining home oxygen oxygen. Prescriptions: Prednisone 10 mg [Deltasone 10 mg] 10 mg PO TID #12 tablet Hydrocodone/Acetaminophen [Hydrocodone-Acetamn 7.5-325/15] 10 ml PO Q8H PRN #120 ml MDD 30 ml PRN Reason: Cough Azithromycin 250 mg [Zithromax 250 MG TABLET] 250 mg PO ZPACK #6 tablet
[2023-03-13 18:32] LABS: ALBUMIN 4.1 g/dL (3.5-5.0); ANION GAP 11.3 MEQ/L (5-15); BILIRUBIN,TOTAL 0.2 mg/dL (0.2-1.3); Calcium 9.1 mg/dL (8.4-10.2); Creatinine 1 0.56 mg/dL (0.52-1.04); EST GLOMERULAR FILTRATION RATE 100.6 ML/MIN; Potassium 3.5 mmol/L (3.5-5.1); Total Protein 7.4 g/dL (6.3-8.2)
[2023-03-13 18:54] LABS: INFLUENZA A NEGATIVE (NEGATIVE); INFLUENZA B NEGATIVE (NEGATIVE); RESPIRATORY SYNCTIAL VIRUS NEGATIVE (NEGATIVE)
[2023-03-13 18:59] LABS: SARS-CoV-2 Xpert Express POSITIVE (NEGATIVE)
[2023-03-13 19:04] LABS: Absolute Neutrophil Ct (ANC) 4.21 x10^3/uL (1.4-6.9); BASOPHIL % 0.3 % (0.0-0.4); Basophil (Absolute #) 0.02 x10^3/uL (0-0.4); Eosinophil (Absolute #) 0 x10^3/uL (0-0.5); Hematocrit 43.3 % (35-47); Hemoglobin 14.1 g/dL (12.0-16.0); IMMATURE GRAN # 0.03 x10^3u/L (0.00-0.03); IMMATURE GRAN % 0.4 % (0.00-0.4); Lymphocyte (Absolute #) 2.49 x10^3/uL (1.0-4.6); Mean Cell Volume 88.9 fL (78-100); Mean Corpuscular Hgb Concent. 32.6 g/dL (32-36); Mean Platelet Volume 10.6 fL (7.5-11.0); Monocyte (Absolute #) 0.57 x10^3/uL (0.0-1.3); Monocytes % 7.8 % (0.0-12.0); Neutrophil % 57.5 % (36.0-66.0); Platelet Count 217 x10^3/uL (150-450); Red Blood Count 4.87 x10^6/uL (4.1-5.4); Red Cell Distribution Width 14.9 % (11.5-14.0); White Blood Count 7.3 x10^3/uL (4.0-10.5)
[2023-03-13 20:24] VITALS: BP 130/82; PULSE 95; RESP 18; O2SAT 88
--- NOTE | 2023-03-14 08:42 | XRAY ---
Indication: Short of breath. Comparison: November 08, 2020 Portable chest demonstrates new right infrahilar infiltrate/atelectasis with tiny effusion. Remaining heart and left lung unremarkable. Bony thorax intact again with osteopenia. Comment: Right lung findings not reported by interpreting ER clinician. Telephone report was given to Dr. Clarke at 0837 hrs. on March 14, 2023.
== END 2023-03-13 20:38 | disposition home or self-care (01) ==
LOC: ED 17:38
DX: U07.1 COVID-19 (principal); J44.1 Chronic obstructive pulmonary disease with (acute) exacerbation; R50.9 Fever, unspecified; R05.1 Acute cough; E78.5 Hyperlipidemia, unspecified; E11.9 Type 2 diabetes mellitus without complications; Z79.891 Long term (current) use of opiate analgesic; Z79.52 Long term (current) use of systemic steroids; Z79.899 Other long term (current) drug therapy; Z72.0 Tobacco use; Z99.81 Dependence on supplemental oxygen
CPT/HCPCS: 0241U; 36000; 36415; 71045; 80053; 82805; 83605; 83880; 84484; 85025; 85379; 87040; 93005; 93041; 94640; 96360; 96361; 96365; 96374; 99284; J0456; J2930; A9270-GY

== ENCOUNTER 2023-04-08 16:40 | Inpatient (IN) | payer MEDICARE ==
[2023-04-08] MEDS ORDERED: DUONEB 0.5-3 MG/3 ml Neb IH ONE ×2 (17:11→17:23)
[2023-04-08] MEDS ORDERED: Sodium Chloride 0.9% 1000 ML 1,000 ML IV STA (17:11)
--- NOTE | 2023-04-08 17:18 | ERPHSYRPT ---
- History of Present Illness Time Seen by Provider: 04/08/23 17:16 Source: patient Exam Limitations: no limitations Patient Subjective Stated Complaint: C/O cough and "shortness of air" for one week. States she is supposed to be on oxygen at 2L per N/C at home continuously but has been without her oxygen since 03/14/23. EMS states that patient was sating in the mid 80s on room air upon their arrival. Triage Nursing Assessment: Patient arrived by ambulance. She is wearing oxygen upon arrival and taking a breathing treatment. SOB present. Non-productive cough. Skin is warm to touch. Wheezing noted. KARTHIK WEINSTEIN. Physician History: Patient is 67-year-old female with significant past medical history of COPD and emphysema hypertension had COVID 4 weeks ago and since then patient has not been feeling well. Patient has been very short of breath having a cough and complaining of generalized weakness. Patient has been on oxygen but patient recently moved from outside state to this area where and she has not been able to get into the local physician so that she can get an oxygen. She denies any other symptoms. She denies any blood in the stool or sputum or urine. She denies any heavy pressure type of chest pain. Timing/Duration: day(s) Severity of Dyspnea-Max: moderate Severity of Dyspnea-Current: moderate Possible Cause: frequent episodes Associated Symptoms: wheezing, weakness Allergies/Adverse Reactions: Penicillins Allergy (Verified 04/08/23 16:42) Hives Home Medications: Allopurinol 100 mg [Zyloprim 100 mg] 100 mg PO HS 10/30/20 [History] Albuterol 8 gm Mdi Hfa [Ventolin Hfa MDI] 8 gm IH QID PRN 03/13/23 [History] Fluticasone/Umeclidin/Vilanter [Trelegy Ellipta 200-62.5-25] 1 puff PO HS 04/08/23 [History] Trazodone HCl 50 mg [Desyrel 50 mg] 1 tab PO HS 04/08/23 [History] Hx Tetanus, Diphtheria Vaccination/Date Given: No Hx Influenza Vaccination/Date Given: No Hx Pneumococcal Vaccination/Date Given: Yes Immunizations Up to Date: Yes Travel Risk - International Travel Have you traveled outside of the country in past 3 weeks: No - Coronavirus Screening Are you exhibiting any of the following symptoms?: Yes Symptoms: Cough: New Onset, Shortness of Breath Close contact with a COVID-19 positive Pt in past 14-21 Days: No - Vaccine Status Have you recieved a Covid-19 vaccination: Yes Promotions Intern: Unknown - Vaccination Dates Date of 2cond Vaccination (if applicable): 2020 Dates if Unknown: ? - Review of Systems Constitutional: No Fever, No Chills Eyes: No Symptoms Ears, Nose, & Throat: No Symptoms Respiratory: Cough, Dyspnea, Dyspnea on Exertion (CASE), Wheezing Cardiac: No Chest Pain, No Edema, No Syncope Abdominal/Gastrointestinal: No Abdominal Pain, No Nausea, No Vomiting, No Diarrhea Genitourinary Symptoms: No Dysuria Musculoskeletal: No Back Pain, No Neck Pain Skin: No Rash Neurological: No Dizziness, No Focal Weakness, No Sensory Changes Psychological: No Symptoms Endocrine: No Symptoms All Other Systems: Reviewed and Negative - Past Medical History Pertinent Past Medical History: Yes Neurological History: No Pertinent History ENT History: Cataracts Cardiac History: Congestive Heart Failure, High Cholesterol Respiratory History: Asthma, Bronchitis, CHF, COPD Endocrine Medical History: Diabetes Type II Musculoskeletal History: No Pertinent History GI Medical History: Gallbladder Disease History: No Pertinent History Psycho-Social History: No Pertinent History Female Reproductive Disorders: No Pertinent History Other Medical History: GOUT, seasonal allergies, COVID-19 - Past Surgical History Past Surgical History: Yes Cardiac: No Pertinent History Respiratory: No Pertinent History Gastrointestinal: Appendectomy, Cholecystectomy Musculoskeletal: Orthopedic Surgery Female Surgical History: Hysterectomy Other Surgical History: teeth removed, bunyonectomy, R hand had a crushing accident surgery to repair tendon involvement pinkie and ring finger on right hand bent at all times. - Social History Smoking Status: Current every day smoker How long have you smoked: 50 yrs Exposure to second hand smoke: Yes Drug Use: marijuana Patient Lives Alone: No (fiance) - Nursing Vital Signs Nursing Vital Signs: Initial Vital Signs Temperature 99.2 F 04/08/23 16:44 Pulse Rate 100 H 04/08/23 16:44 Respiratory Rate 28 H 04/08/23 16:44 Blood Pressure 112/74 04/08/23 16:44 O2 Sat by Pulse Oximetry 92 L 04/08/23 16:44 Pain Scale Pain Intensity 9 - Physical Exam General Appearance: mild distress, alert Eye Exam: PERRL/EOMI Neck Exam: normal inspection, supple Respiratory Exam: diminished breath sounds, crackles/rales, rhonchi, wheezing Cardiovascular/Chest Exam: normal heart sounds, regular rate/rhythm Abdominal/Gastrointestinal Exam: soft, No tenderness, No distention, No mass Extremity Exam: non-tender, normal range of motion, normal inspection, no calf tenderness, no pedal edema Neurologic Exam: alert, oriented x 3, cooperative, emission technician II-XII nml as tested, sensation nml, No motor deficits Skin Exam: normal color, warm, No dry SpO2 Interpretation: borderline oxygenation SpO2: 92 O2 Delivery: Room Air - Course Nursing assessment & vital signs reviewed: Yes Ordered Tests: Active Orders 24 hr Category Date Time Status EKG-ER Only STAT Care 04/08/23 17:11 Active Oxygen-ED Only Nasal Cannula 2 lpm Care 04/08/23 17:11 Active Telemetry q4h Care 04/08/23 18:54 Active CHEST 2 VIEWS (PA AND LAT) Stat Exams 04/08/23 17:11 Taken CBC W DIFF Stat Lab 04/08/23 17:35 Completed CMP Stat Lab 04/08/23 17:35 Completed NT PRO BNPII Stat Lab 04/08/23 17:35 Completed TROPONIN Stat Lab 04/08/23 17:35 Completed Respiratory Therapy Assessment DAILY RT 04/08/23 17:36 Completed Medication Summary Generic Name Dose Route Start Last Admin Trade Name Freq PRN Reason Stop Dose Admin Potassium Chloride 20 meq in 100 mls @ 50 mls/hr 04/08/23 19:00 Potassium Chloride 20 Meq In Water 100ml IV 04/08/23 22:59 Q2H CORAL Ceftriaxone Sodium/Dextrose 1 g in 50 mls @ 100 mls/hr 04/08/23 18:56 Rocephin 1 Gm-D5w 50 Ml Bag IV 04/08/23 19:25 STAT STA Discontinued Medications Generic Name Dose Route Start Last Admin Trade Name Freq PRN Reason Stop Dose Admin Albuterol/Ipratropium 3 ml 04/08/23 17:11 04/08/23 17:26 Ipratropium/Albuterol Sulfate 3 Ml Ampul.Neb IH 04/08/23 17:12 3 ml STAT ONE Administration Albuterol/Ipratropium Confirm 04/08/23 17:23 Ipratropium/Albuterol Sulfate 3 Ml Ampul.Neb Administered 04/08/23 17:24 Dose 3 ml IH .STK-MED ONE Sodium Chloride 1,000 mls @ 999 mls/hr 04/08/23 17:11 Sodium Chloride 0.9% 1000 Ml IV 04/08/23 18:11 .Q1H1M STA Morphine Sulfate 4 mg 04/08/23 18:52 Morphine Sulfate 4 Mg/Ml Injection IV 04/08/23 18:53 STAT ONE Lab/Rad Data: Laboratory Result Diagrams 04/08/23 17:35 04/08/23 17:35 Laboratory Results 04/08/23 04/08/23 04/08/23 Range/Units 17:35 17:35 17:35 WBC 9.4 (4.0-10.5) x10^3/uL RBC 5.24 (4.1-5.4) x10^6/uL Hgb 14.9 (12.0-16.0) g/dL Hct 46.2 (35-47) % MCV 88.2 (78-100) fL MCH 28.4 (26-32) pg MCHC 32.3 (32-36) g/dL RDW 15.3 H (11.5-14.0) % Plt Count 223 (150-450) x10^3/uL MPV 10.4 (7.5-11.0) fL Gran % 52.8 (36.0-66.0) % Immature Gran % (Auto) 0.2 (0.00-0.4) % Nucleat RBC Rel Count 0.0 (0.00-0.1) % Eos # (Auto) 0.02 (0-0.5) x10^3/uL Immature Gran # (Auto) 0.02 (0.00-0.03) x10^3u/L Absolute Lymphs (auto) 3.91 (1.0-4.6) x10^3/uL Absolute Monos (auto) 0.49 (0.0-1.3) x10^3/uL Absolute Nucleated RBC 0.00 (0.00-0.01) x10^3u/L Lymphocytes % 41.5 (24.0-44.0) % Monocytes % 5.2 (0.0-12.0) % Eosinophils % 0.2 (0.00-5.0) % Basophils % 0.1 (0.0-0.4) % Absolute Granulocytes 4.98 (1.4-6.9) x10^3/uL Basophils # 0.01 (0-0.4) x10^3/uL Sodium 138 (137-145) mmol/L Potassium 2.9 L* (3.5-5.1) mmol/L Chloride 102 (98-107) mmol/L Carbon Dioxide 28 (22-30) mmol/L Anion Gap 10.6 (5-15) MEQ/L BUN 15 (7-17) mg/dL Creatinine 0.56 (0.52-1.04) mg/dL Estimated GFR 100.6 ML/MIN Glucose 137 H (74-106) mg/dL Calcium 9.1 (8.4-10.2) mg/dL Total Bilirubin 0.40 (0.2-1.3) mg/dL AST 20 (14-36) U/L ALT 14 (0-35) U/L Alkaline Phosphatase 79 (38-126) U/L Troponin I < 0.012 (0.000-0.034) ng/mL NT-Pro-B Natriuret Pep 306 (<300) pg/mL Serum Total Protein 7.5 (6.3-8.2) g/dL Albumin 4.0 (3.5-5.0) g/dL Influenza Type A Ag NEGATIVE (NEGATIVE) Influenza Type B Ag NEGATIVE (NEGATIVE) RSV (PCR) NEGATIVE (NEGATIVE) SARS-CoV-2 (PCR) NEGATIVE (NEGATIVE) - Progress Progress: unchanged Air Movement: fair Blood Culture(s) Obtained: No Antibiotics given: Yes Discussed with : Patrick, Other Counseled pt/family regarding: lab results, diagnosis, need for follow-up, rad results Medical Desision Making - Discussion of managment Care discussed with:: hospitalist Reviewed:: Test results, Need for additional workup Agreed on:: decision to admit, place in obs Will see patient: in hospital - Diagnostic Testing Diagnostic test were ordered, analyzed, and reviewed by me: Yes Radiological Interpretation: Reviewed by me - Risk of complications The pt has a mod risk of morbidity or mortality based on: Need for prescription drug management - Departure Departure Disposition: Observation Clinical Impression: COPD exacerbation, Acute hypokalemia Condition: Fair Critical Care Time: No Referrals: DOCTOR,NO FAMILY [NON-STAFF PHY W/O PRIVILEGES] - Follow up/PCP as directed Instructions: Chronic Obstructive Pulmonary Disease
[2023-04-08 18:06] LABS: Absolute Neutrophil Ct (ANC) 4.98 x10^3/uL (1.4-6.9); BASOPHIL % 0.1 % (0.0-0.4); Basophil (Absolute #) 0.01 x10^3/uL (0-0.4); Eosinophil % 0.2 % (0.00-5.0); Eosinophil (Absolute #) 0.02 x10^3/uL (0-0.5); Hematocrit 46.2 % (35-47); Hemoglobin 14.9 g/dL (12.0-16.0); IMMATURE GRAN # 0.02 x10^3u/L (0.00-0.03); IMMATURE GRAN % 0.2 % (0.00-0.4); Lymphocyte (Absolute #) 3.91 x10^3/uL (1.0-4.6); Lymphocytes % 41.5 % (24.0-44.0); Mean Cell Volume 88.2 fL (78-100); Mean Corpuscular Hemoglobin 28.4 pg (26-32); Mean Corpuscular Hgb Concent. 32.3 g/dL (32-36); Mean Platelet Volume 10.4 fL (7.5-11.0); Monocyte (Absolute #) 0.49 x10^3/uL (0.0-1.3); Monocytes % 5.2 % (0.0-12.0); Neutrophil % 52.8 % (36.0-66.0); Platelet Count 223 x10^3/uL (150-450); Red Blood Count 5.24 x10^6/uL (4.1-5.4); Red Cell Distribution Width 15.3 % (11.5-14.0); White Blood Count 9.4 x10^3/uL (4.0-10.5)
[2023-04-08 18:17] LABS: INFLUENZA A NEGATIVE (NEGATIVE); INFLUENZA B NEGATIVE (NEGATIVE); RESPIRATORY SYNCTIAL VIRUS NEGATIVE (NEGATIVE); SARS-CoV-2 Xpert Express NEGATIVE (NEGATIVE)
[2023-04-08 18:29] LABS: ALKALINE PHOSPHATASE 79 U/L (38-126); ANION GAP 10.6 MEQ/L (5-15); BLOOD UREA NITROGEN 15 mg/dL (7-17); CHLORIDE 102 mmol/L (98-107); Calcium 9.1 mg/dL (8.4-10.2); Carbon Dioxide 28 mmol/L (22-30); Creatinine 1 0.56 mg/dL (0.52-1.04); EST GLOMERULAR FILTRATION RATE 100.6 ML/MIN; Glucose 137 mg/dL (74-106); NT PRO BNPII 306 pg/mL (<300); SGOT/AST 20 U/L (14-36); SGPT/ALT 14 U/L (0-35); SODIUM 138 mmol/L (137-145); TROPONIN < 0.012 ng/mL (0.000-0.034); Total Protein 7.5 g/dL (6.3-8.2)
[2023-04-08 18:34] LABS: Potassium 2.9 mmol/L (3.5-5.1)
[2023-04-08] MEDS ORDERED: MORPHINE SULFATE 4 MG INJ IV ONE (18:52)
[2023-04-08] MEDS ORDERED: ROCEPHIN 1 Gm-D5w 50 ml Bag** 1 G/50 ML IVPB IV STA (18:56)
[2023-04-08] MEDS ORDERED: ROCEPHIN 1 Gm-D5w 50 ml Bag** 1 G/50 ML IVPB IV ONE (19:23)
[2023-04-08] MEDS ORDERED: MORPHINE SULFATE 4 MG INJ ONE (19:23)
[2023-04-08] MEDS ORDERED: Sodium Chloride 0.9% 1000 ML 1,000 ML ONE (19:23)
[2023-04-08] MEDS: POTASSIUM CHLORIDE 20 mEq IN WATER 100ML 20 MEQ/100 ML BAG IV SCH ×2 (19:26→22:10)
--- NOTE | 2023-04-08 20:56 | XRAY ---
Indication: Short of breath. Comparison: March 13, 2023. PA/lateral chest again hyperinflated. Clearing previous right infrahilar infiltrate/atelectasis. Remaining heart and lungs unremarkable.Bony thorax intact again with osteopenia and mild degenerative changes.
[2023-04-08] MEDS ORDERED: Sodium Chloride 0.9% 500 ML 500 ML IV ONE (20:57)
[2023-04-08] MEDS ORDERED: Sodium Chloride 0.9% 500 ML 500 ML IV SCH (21:00)
--- NOTE | 2023-04-08 22:04 | PCM.HP ---
History of Present Illness - Chief Complaint Chief Complaint: COPD exc/Hypokalemia Date: 04/08/23 History of Present Illness: This is a 67-year-old female admitted for acute COPD exacerbation and hypokalemia. She has past medical history COPD, Gout, GERD, anxiety on Diazepam , chronic hypoxemic respiratory failure but has failed to be maintained on oxygen after move, recent COVID infection. She presented to the ED this evening with complaints of cough productive of yellow and green sputum and shortness of breath on arrival she was 99.2, heart rate 100, respiratory 20, blood pressure 112/74, sat 92% on room air her labs were significant for WBC 9.4, potassium 2 .9, creatinine 0.56, troponin negative, BNP 306, flu/RSV/COVID-negative. In the ED she received IV potassium, ceftriaxone, 1 L of saline, 4 mg of IV morphine, DuoNeb. Chest x-ray with no acute pathology. Medications & Allergies Home Medications: Home Medication List Allopurinol 100 mg [Zyloprim 100 mg] 100 mg PO HS 10/30/20 [History Confirmed 04/08/23] Fluticasone/Umeclidin/Vilanter [Trelegy Ellipta 200-62.5-25] 1 puff PO HS 04/08/23 [History Confirmed 04/08/23] Ipratropium [place] [Atrovent Hfa] 1 inh IH QID PRN PRN 04/08/23 [History Confirmed 04/08/23] PANTOPRAZOLE 40 mg Tablet [Protonix 40MG Tablet] 40 mg PO QPM 04/08/23 [History Confirmed 04/08/23] Allergies/Adverse Reactions: Allergies Allergy/AdvReac Type Severity Reaction Status Date / Time Penicillins Allergy Hives Verified 04/08/23 16:42 - Past Medical History Past Medical History: Yes Neurological History: No Pertinent History ENT History: Cataracts Cardiac History: High Cholesterol Respiratory History: Asthma, Bronchitis, COPD, Emphysema, Pneumonia Endocrine Medical History: No Pertinent History Musculoskelatal History: No Pertinent History, Arthritis GI Medical History: GERD, Gallbladder Disease History: No Pertinent History Pyscho-Social History: No Pertinent History, Anxiety Reproductive Disorders: No Pertinent History Comment: GOUT, seasonal allergies, COVID-19 - Female History Are you now?: No - Past Surgical History Past Surgical History: Yes Neuro Surgical History: No Pertinent History Cardiac History: No Pertinent History Respiratory Surgery: No Pertinent History GI Surgical History: Appendectomy, Cholecystectomy Genitourinary Surgical Hx: No Pertinent History Musculskeletal Surgical Hx: Orthopedic Surgery Female Surgical History: Hysterectomy Other Surgical History: teeth removed, bunyonectomy, R hand had a crushing accident surgery to repair tendon involvement pinkie and ring finger on right hand bent at all times. - Social History Smoking Status: Current every day smoker How long have you smoked: 50 yrs Exposure to second hand smoke: Yes Alcohol: None Drug Use: marijuana - Physical Exam Vital Signs: Vital Signs - 24 hr Temp Pulse Resp BP BP Pulse Ox 04/08/23 21:00 97.3 F 87 20 138/74 140/66 91 L 04/08/23 20:30 81 15 129/99 94 L 04/08/23 20:02 86 19 131/83 94 L 04/08/23 19:30 91 H 26 H 129/72 91 L 04/08/23 19:25 92 L 04/08/23 19:00 97 H 26 H 146/78 90 L 04/08/23 18:31 99 H 23 114/87 87 L 04/08/23 18:23 104 H 25 H 113/83 88 L 04/08/23 17:30 101 H 27 H 103/70 94 L 04/08/23 17:03 102 H 22 101/74 88 L 04/08/23 17:00 104 H 20 78/54 88 L 04/08/23 16:44 99.2 F 100 H 28 H 112/74 92 L Results - Labs Lab/Micro Results: Lab Results-Last 24 Hours 04/08/23 04/08/23 04/08/23 Range/Units 17:35 17:35 17:35 WBC 9.4 (4.0-10.5) x10^3/uL RBC 5.24 (4.1-5.4) x10^6/uL Hgb 14.9 (12.0-16.0) g/dL Hct 46.2 (35-47) % MCV 88.2 (78-100) fL MCH 28.4 (26-32) pg MCHC 32.3 (32-36) g/dL RDW 15.3 H (11.5-14.0) % Plt Count 223 (150-450) x10^3/uL MPV 10.4 (7.5-11.0) fL Gran % 52.8 (36.0-66.0) % Immature Gran % (Auto) 0.2 (0.00-0.4) % Nucleat RBC Rel Count 0.0 (0.00-0.1) % Eos # (Auto) 0.02 (0-0.5) x10^3/uL Immature Gran # (Auto) 0.02 (0.00-0.03) x10^3u/L Absolute Lymphs (auto) 3.91 (1.0-4.6) x10^3/uL Absolute Monos (auto) 0.49 (0.0-1.3) x10^3/uL Absolute Nucleated RBC 0.00 (0.00-0.01) x10^3u/L Lymphocytes % 41.5 (24.0-44.0) % Monocytes % 5.2 (0.0-12.0) % Eosinophils % 0.2 (0.00-5.0) % Basophils % 0.1 (0.0-0.4) % Absolute Granulocytes 4.98 (1.4-6.9) x10^3/uL Basophils # 0.01 (0-0.4) x10^3/uL Sodium 138 (137-145) mmol/L Potassium 2.9 L* (3.5-5.1) mmol/L Chloride 102 (98-107) mmol/L Carbon Dioxide 28 (22-30) mmol/L Anion Gap 10.6 (5-15) MEQ/L BUN 15 (7-17) mg/dL Creatinine 0.56 (0.52-1.04) mg/dL Estimated GFR 100.6 ML/MIN Glucose 137 H (74-106) mg/dL Calcium 9.1 (8.4-10.2) mg/dL Total Bilirubin 0.40 (0.2-1.3) mg/dL AST 20 (14-36) U/L ALT 14 (0-35) U/L Alkaline Phosphatase 79 (38-126) U/L Troponin I < 0.012 (0.000-0.034) ng/mL NT-Pro-B Natriuret Pep 306 (<300) pg/mL Serum Total Protein 7.5 (6.3-8.2) g/dL Albumin 4.0 (3.5-5.0) g/dL Influenza Type A Ag NEGATIVE (NEGATIVE) Influenza Type B Ag NEGATIVE (NEGATIVE) RSV (PCR) NEGATIVE (NEGATIVE) SARS-CoV-2 (PCR) NEGATIVE (NEGATIVE) - Radiology Impressions Radiology Exams & Impressions: Radiology Procedures Category Date Time Status CHEST 2 VIEWS (PA AND LAT) Stat Exams 04/08/23 17:11 Completed - Other Procedures and Tests Respiratory Therapy 04/08/23 21:21 Oxygen Nasal Cannula 2 lpm Respiratory Therapy Consult ONCE 04/08/23 22:00 RT Screen per Nursing Assess ONCE Smoking Cessation Education ONCE Assessment/Plan (1) Acute hypokalemia Current Visit: Yes Status: Acute Code(s): E87.6 - HYPOKALEMIA (2) COPD exacerbation Current Visit: Yes Status: Acute Assessment & Plan: ASSESSMENT # Acute COPD exacerbation # Chronic hypoxemic respiratory failure # Acute hypokalemia # H/O Gout # H/O Anxiety PLAN -Prednisone -DuoNebs -Supplemental oxygen to maintain saturation 88% -Will need 6-minute walk test to document chronic hypoxia -Potassium repletion -Repeat BMP this evening Prophylaxis: Lovenox Entire encounter performed via telemedicine Code(s): J44.1 - CHRONIC OBSTRUCTIVE PULMONARY DISEASE W (ACUTE) EXACERBATION Telemedicine Encounter - Telemedicine Encounter Telemedicine Encounter: The entirety of this encounter was performed via Telemedicine"
[2023-04-08] MEDS: Advair Hfa 115/21 Common canister IH SCH (22:45)
[2023-04-08] MEDS ORDERED: Zofran 4 MG/2 ML VIAL IV PRN (22:58)
[2023-04-08] MEDS ORDERED: MILK OF MAGNESIA 30 ML PO PRN (22:58)
[2023-04-08] MEDS ORDERED: TYLENOL 325 MG PO PRN (22:58)
[2023-04-08] MEDS ORDERED: Docusate Sodium 100 MG PO PRN (22:58)
[2023-04-08] MEDS ORDERED: solu-MEDROL 40 MG, Sterile H2O 10 ml 1 ML IV SCH ×2 (23:00)
[2023-04-08] MEDS ORDERED: Valium 5 MG PO PRN (23:00)
[2023-04-08] MEDS: DUONEB 0.5-3 MG/3 ml Neb IH SCH (23:10)
[2023-04-08] MEDS: Vibramycin 100 MG PO SCH (23:11)
[2023-04-09] MEDS ORDERED: solu-MEDROL 40 MG, Sterile H2O 10 ml 1 ML IV SCH ×2
[2023-04-09 01:22] LABS: ANION GAP 7.7 MEQ/L (5-15); Calcium 8.1 mg/dL (8.4-10.2); Creatinine 1 0.54 mg/dL (0.52-1.04); EST GLOMERULAR FILTRATION RATE 101.5 ML/MIN; Potassium 3.1 mmol/L (3.5-5.1)
[2023-04-09] MEDS: Klor Con PO SCH ×2 (02:07→04:10)
[2023-04-09] MEDS: DUONEB 0.5-3 MG/3 ml Neb IH SCH ×6 (03:12→23:33)
--- NOTE | 2023-04-09 05:17 | PCM.NOTE ---
Date and Time: 04/09/23 0509 Subjective Assessment: This is a 67-year-old female admitted for acute COPD exacerbation and hypokalemia. She has past medical history COPD, Gout, GERD, anxiety on Diazepam , chronic hypoxemic respiratory failure but has failed to be maintained on oxygen after move, recent COVID infection. She presented to the ED this evening with complaints of cough productive of yellow and green sputum and shortness of breath on arrival she was 99.2, heart rate 100, respiratory 20, blood pressure 112/74, sat 92% on room air her labs were significant for WBC 9.4, potassium 2.9, creatinine 0.56, troponin negative, BNP 306, flu/RSV/COVID-negative. In the ED she received IV potassium, ceftriaxone, 1 L of saline, 4 mg of IV morphine, DuoNeb. Chest x-ray with no acute pathology. 04/09/23: Met with patient bedside. Endorses increased shortness of breath, cough with yellow sputum, headache, and wheezing. Patient states she had covid recently and was on doxycycline/medrol dose pack mid March, finishing around [place]. CXR does show some remaining right infiltrate that is clearing. On auscultation patient is diminished bilaterally with coarse lung sounds and mild wheezing. She states her baseline oxygen is 2L at bedtime but she recently ran out of her home oxygen in early March. She is an everyday 1PPD smoker, we did discuss cessation but patient states she is not ready to quit and does not want a nicotine patch while IP. Plan is to continue current management with Ceftriaxone/doxy and solumedrol. Will have RT eval for home oxygen, regardless she will need at least her baseline oxygen supplied prior to discharge. - Review of Systems Constitutional: No Symptoms Eyes: No Symptoms Ears, Nose, & Throat: No Symptoms Respiratory: Cough, Short Of Breath, Wheezing Cardiac: No Symptoms Abdominal/Gastrointestinal: No Symptoms Genitourinary Symptoms: No Symptoms Musculoskeletal: No Symptoms Skin: No Symptoms Neurological: No Symptoms Psychological: No Symptoms Endocrine: No Symptoms Hematologic/Lymphatic: No Symptoms Immunological/Allergic: No Symptoms Objective Exam General Appearance: no apparent distress Neurologic Exam: alert, oriented x 3, cooperative Skin Exam: normal color Eye Exam: PERRL Ears, Nose, Throat Exam: normal ENT inspection Neck Exam: normal inspection Respiratory Exam: diminished breath sounds, crackles/rales, wheezing Cardiovascular Exam: regular rate/rhythm, normal heart sounds Gastrointestinal/Abdomen Exam: soft, normal bowel sounds Extremity Exam: normal inspection Back Exam: normal inspection Pelvic Exam: deferred Rectal Exam: deferred OBJECTIVE DATA Vital Signs: Vital Signs - 24 hr Temp Pulse Resp BP BP Pulse Ox 04/09/23 03:14 93 H 20 93 L 04/08/23 23:43 98 04/08/23 22:45 86 18 98 04/08/23 21:00 97.3 F 87 20 138/74 140/66 91 L 04/08/23 20:30 81 15 129/99 94 L 04/08/23 20:02 86 19 131/83 94 L 04/08/23 19:30 91 H 26 H 129/72 91 L 04/08/23 19:25 92 L 04/08/23 19:00 97 H 26 H 146/78 90 L 04/08/23 18:31 99 H 23 114/87 87 L 04/08/23 18:23 104 H 25 H 113/83 88 L 04/08/23 17:30 101 H 27 H 103/70 94 L 04/08/23 17:03 102 H 22 101/74 88 L 04/08/23 17:00 104 H 20 78/54 88 L 04/08/23 16:44 99.2 F 100 H 28 H 112/74 92 L Pain Assessment - Last Documented Pain Intensity 5 Pain Scale Used 0-10 Pain Scale Intake and Output: Intake & Output 04/06/23 04/07/23 04/08/23 04/09/23 11:59 11:59 11:59 11:59 Weight 80.8 kg Lab Results: Lab Results-Last 24 Hours 04/08/23 04/08/23 04/08/23 Range/Units 17:35 17:35 17:35 WBC 9.4 (4.0-10.5) x10^3/uL RBC 5.24 (4.1-5.4) x10^6/uL Hgb 14.9 (12.0-16.0) g/dL Hct 46.2 (35-47) % MCV 88.2 (78-100) fL MCH 28.4 (26-32) pg MCHC 32.3 (32-36) g/dL RDW 15.3 H (11.5-14.0) % Plt Count 223 (150-450) x10^3/uL MPV 10.4 (7.5-11.0) fL Gran % 52.8 (36.0-66.0) % Immature Gran % (Auto) 0.2 (0.00-0.4) % Nucleat RBC Rel Count 0.0 (0.00-0.1) % Eos # (Auto) 0.02 (0-0.5) x10^3/uL Immature Gran # (Auto) 0.02 (0.00-0.03) x10^3u/L Absolute Lymphs (auto) 3.91 (1.0-4.6) x10^3/uL Absolute Monos (auto) 0.49 (0.0-1.3) x10^3/uL Absolute Nucleated RBC 0.00 (0.00-0.01) x10^3u/L Lymphocytes % 41.5 (24.0-44.0) % Monocytes % 5.2 (0.0-12.0) % Eosinophils % 0.2 (0.00-5.0) % Basophils % 0.1 (0.0-0.4) % Absolute Granulocytes 4.98 (1.4-6.9) x10^3/uL Basophils # 0.01 (0-0.4) x10^3/uL Sodium 138 (137-145) mmol/L Potassium 2.9 L* (3.5-5.1) mmol/L Chloride 102 (98-107) mmol/L Carbon Dioxide 28 (22-30) mmol/L Anion Gap 10.6 (5-15) MEQ/L BUN 15 (7-17) mg/dL Creatinine 0.56 (0.52-1.04) mg/dL Estimated GFR 100.6 ML/MIN Glucose 137 H (74-106) mg/dL Calcium 9.1 (8.4-10.2) mg/dL Magnesium (1.6-2.3) mg/dL Total Bilirubin 0.40 (0.2-1.3) mg/dL AST 20 (14-36) U/L ALT 14 (0-35) U/L Alkaline Phosphatase 79 (38-126) U/L Troponin I < 0.012 (0.000-0.034) ng/mL NT-Pro-B Natriuret Pep 306 (<300) pg/mL Serum Total Protein 7.5 (6.3-8.2) g/dL Albumin 4.0 (3.5-5.0) g/dL Influenza Type A Ag NEGATIVE (NEGATIVE) Influenza Type B Ag NEGATIVE (NEGATIVE) RSV (PCR) NEGATIVE (NEGATIVE) SARS-CoV-2 (PCR) NEGATIVE (NEGATIVE) 04/09/23 04/09/23 Range/Units 01:00 01:05 WBC (4.0-10.5) x10^3/uL RBC (4.1-5.4) x10^6/uL Hgb (12.0-16.0) g/dL Hct (35-47) % MCV (78-100) fL MCH (26-32) pg MCHC (32-36) g/dL RDW (11.5-14.0) % Plt Count (150-450) x10^3/uL MPV (7.5-11.0) fL Gran % (36.0-66.0) % Immature Gran % (Auto) (0.00-0.4) % Nucleat RBC Rel Count (0.00-0.1) % Eos # (Auto) (0-0.5) x10^3/uL Immature Gran # (Auto) (0.00-0.03) x10^3u/L Absolute Lymphs (auto) (1.0-4.6) x10^3/uL Absolute Monos (auto) (0.0-1.3) x10^3/uL Absolute Nucleated RBC (0.00-0.01) x10^3u/L Lymphocytes % (24.0-44.0) % Monocytes % (0.0-12.0) % Eosinophils % (0.00-5.0) % Basophils % (0.0-0.4) % Absolute Granulocytes (1.4-6.9) x10^3/uL Basophils # (0-0.4) x10^3/uL Sodium 137 (137-145) mmol/L Potassium 3.1 L (3.5-5.1) mmol/L Chloride 105 (98-107) mmol/L Carbon Dioxide 27 (22-30) mmol/L Anion Gap 7.7 (5-15) MEQ/L BUN 14 (7-17) mg/dL Creatinine 0.54 (0.52-1.04) mg/dL Estimated GFR 101.5 ML/MIN Glucose 125 H (74-106) mg/dL Calcium 8.1 L (8.4-10.2) mg/dL Magnesium 1.7 (1.6-2.3) mg/dL Total Bilirubin (0.2-1.3) mg/dL AST (14-36) U/L ALT (0-35) U/L Alkaline Phosphatase (38-126) U/L Troponin I (0.000-0.034) ng/mL NT-Pro-B Natriuret Pep (<300) pg/mL Serum Total Protein (6.3-8.2) g/dL Albumin (3.5-5.0) g/dL Influenza Type A Ag (NEGATIVE) Influenza Type B Ag (NEGATIVE) RSV (PCR) (NEGATIVE) SARS-CoV-2 (PCR) (NEGATIVE) Radiology Exams: Radiology Procedures Category Date Time Status CHEST 2 VIEWS (PA AND LAT) Stat Exams 04/08/23 17:11 Completed Assessment/Plan (1) COPD exacerbation Current Visit: Yes Status: Acute Assessment & Plan: -Soulmedrol -DuoNebs -Supplemental oxygen to maintain saturation 88% -Will need 6-minute walk test to document chronic hypoxia 04/09: -Doxycycline -solumedrol -Patient does not follow with pulmonolgy, would like referral Code(s): J44.1 - CHRONIC OBSTRUCTIVE PULMONARY DISEASE W (ACUTE) EXACERBATION (2) Acute hypokalemia Current Visit: Yes Status: Acute Assessment & Plan: -Tele -Remains low, will replenish -Mg wnl 04/09: -MG and potassium wnl, will continue to monitor Code(s): E87.6 - HYPOKALEMIA (3) Respiratory failure Current Visit: No Status: Acute Qualifiers: Chronicity: acute on chronic Respiratory failure complication: hypoxia Qualified Code(s): J96.21 - Acute and chronic respiratory failure with hypoxia Assessment & Plan: - Code(s): J96.90 - RESPIRATORY FAILURE, UNSP, UNSP W HYPOXIA OR HYPERCAPNIA (4) Smoker Current Visit: Yes Status: Acute Assessment & Plan: -Smoking cessation advised, patient not ready to quit Code(s): F17.200 - NICOTINE DEPENDENCE, UNSPECIFIED, UNCOMPLICATED (5) Infiltrate noted on imaging study Current Visit: Yes Status: Acute Assessment & Plan: -CXR with clearing right infiltrate, will continue on ceftriaxone/doxycycline for now -consider CT if worsening Code(s): R93.89 - ABNORMAL FINDINGS ON DX IMAGING OF OTH BODY STRUCTURES
[2023-04-09 06:50] LABS: ANION GAP 8.2 MEQ/L (5-15); Calcium 8.1 mg/dL (8.4-10.2); Creatinine 1 0.51 mg/dL (0.52-1.04); EST GLOMERULAR FILTRATION RATE 102.9 ML/MIN; MAGNESIUM 1.6 mg/dL (1.6-2.3); Potassium 3.9 mmol/L (3.5-5.1)
[2023-04-09] MEDS: Advair Hfa 115/21 Common canister IH SCH ×2 (07:15→07:27)
[2023-04-09 07:21] LABS: Absolute Neutrophil Ct (ANC) 7.91 x10^3/uL (1.4-6.9); BASOPHIL % 0.1 % (0.0-0.4); Basophil (Absolute #) 0.01 x10^3/uL (0-0.4); Eosinophil % 0.3 % (0.00-5.0); Eosinophil (Absolute #) 0.03 x10^3/uL (0-0.5); Hematocrit 38.5 % (35-47); Hemoglobin 12.3 g/dL (12.0-16.0); IMMATURE GRAN # 0.03 x10^3u/L (0.00-0.03); IMMATURE GRAN % 0.3 % (0.00-0.4); Lymphocyte (Absolute #) 2.98 x10^3/uL (1.0-4.6); Lymphocytes % 25.4 % (24.0-44.0); Mean Cell Volume 88.5 fL (78-100); Mean Corpuscular Hemoglobin 28.3 pg (26-32); Mean Corpuscular Hgb Concent. 31.9 g/dL (32-36); Monocyte (Absolute #) 0.76 x10^3/uL (0.0-1.3); Monocytes % 6.5 % (0.0-12.0); Neutrophil % 67.4 % (36.0-66.0); Platelet Count 220 x10^3/uL (150-450); Red Blood Count 4.35 x10^6/uL (4.1-5.4); Red Cell Distribution Width 15.4 % (11.5-14.0); White Blood Count 11.7 x10^3/uL (4.0-10.5)
[2023-04-09] MEDS ORDERED: MEDICATION INTERVENTION MC SCH (07:30)
[2023-04-09] MEDS: solu-MEDROL 40 MG, Sterile H2O 10 ml 1 ML IV SCH ×4 (08:58→22:07)
[2023-04-09] MEDS: NORCO 5/325 MG PO PRN ×3 (08:59→19:53)
[2023-04-09] MEDS ORDERED: DELTASONE 20 MG PO SCH (10:00)
[2023-04-09] MEDS: Vibramycin 100 MG PO SCH ×2 (10:44→22:06)
[2023-04-09] MEDS: ENOXAPARIN SODIUM SQ SCH (10:45)
[2023-04-09] MEDS: PATIENT OWN MEDICATION IH SCH (19:04)
[2023-04-09] MEDS ORDERED: NON-FORMULARY ITEM (Fluticasone/Umeclidin/Vilanter [Trelegy Ellipta 200-62.5-25] 1 EACH Bl PO SCH (22:00)
[2023-04-09] MEDS: ZYLOPRIM 100 MG PO SCH (22:06)
[2023-04-09] MEDS: Protonix 40MG Tablet PO SCH (22:06)
[2023-04-09] MEDS: ROCEPHIN 1 Gm-D5w 50 ml Bag** 1 G/50 ML IVPB IV SCH (22:08)
[2023-04-10] MEDS: DUONEB 0.5-3 MG/3 ml Neb IH SCH ×6 (03:20→22:43)
[2023-04-10] MEDS: NORCO 5/325 MG PO PRN (03:23)
[2023-04-10 05:51] LABS: BASOPHIL % 0.1 % (0.0-0.4); Basophil (Absolute #) 0.02 x10^3/uL (0-0.4); Eosinophil (Absolute #) 0 x10^3/uL (0-0.5); Hematocrit 37.6 % (35-47); Hemoglobin 11.9 g/dL (12.0-16.0); IMMATURE GRAN # 0.09 x10^3u/L (0.00-0.03); IMMATURE GRAN % 0.6 % (0.00-0.4); Lymphocyte (Absolute #) 0.97 x10^3/uL (1.0-4.6); Lymphocytes % 6.2 % (24.0-44.0); Mean Cell Volume 88.7 fL (78-100); Mean Corpuscular Hemoglobin 28.1 pg (26-32); Mean Corpuscular Hgb Concent. 31.6 g/dL (32-36); Mean Platelet Volume 10.7 fL (7.5-11.0); Monocyte (Absolute #) 0.33 x10^3/uL (0.0-1.3); Monocytes % 2.1 % (0.0-12.0); Platelet Count 227 x10^3/uL (150-450); Red Blood Count 4.24 x10^6/uL (4.1-5.4); Red Cell Distribution Width 15.9 % (11.5-14.0); White Blood Count 15.6 x10^3/uL (4.0-10.5)
[2023-04-10 06:09] LABS: ALBUMIN 3.4 g/dL (3.5-5.0); BILIRUBIN,TOTAL 0.3 mg/dL (0.2-1.3); Calcium 8.8 mg/dL (8.4-10.2); Creatinine 1 0.46 mg/dL (0.52-1.04); EST GLOMERULAR FILTRATION RATE 105.5 ML/MIN; Total Protein 6.4 g/dL (6.3-8.2)
[2023-04-10 06:11] LABS: Potassium 3.9 mmol/L (3.5-5.1)
[2023-04-10] MEDS ORDERED: NORCO 5/325 MG PO PRN (07:50)
[2023-04-10] MEDS ORDERED: TYLENOL 325 MG PO PRN (07:55)
[2023-04-10] MEDS: ENOXAPARIN SODIUM SQ SCH (08:54)
[2023-04-10] MEDS: Vibramycin 100 MG PO SCH ×2 (08:55→21:07)
[2023-04-10] MEDS: solu-MEDROL 40 MG, Sterile H2O 10 ml 1 ML IV SCH ×4 (08:55→21:07)
[2023-04-10] MEDS: Nicoderm CQ 21 MG TOP SCH (09:05)
[2023-04-10 09:52] LABS: ANION GAP 6.9 MEQ/L (5-15)
--- NOTE | 2023-04-10 11:27 | PCM.NOTE ---
Date and Time: 04/10/23 1121 Subjective Assessment: This is a 67-year-old female admitted for acute COPD exacerbation and hypokalemia. She has past medical history COPD, Gout, GERD, and anxiety, chronic hypoxemic respiratory failure but has failed to be maintained on oxygen after move, recent COVID infection. She presented to the ED on 04/08 with complaints of cough productive of yellow and green sputum and shortness of breath. Chest x-ray with no acute pathology. Pt continues to endorse shortness of breath, cough with yellow sputum, and headache. Patient states she had COVID recently and was on doxycycline/medrol dose pack mid March, finishing around [place]. CXR does show some remaining right infiltrate that is clearing. On auscultation patient has coarse lung sounds throughout. She states her baseline oxygen is 4L O2 but she recently ran out of her home oxygen in early March and has been without since then. She is an everyday 1PPD smoker, we did discuss cessation but patient states she is not ready to quit. Plan is to continue current management with Ceftriaxone/doxy and solumedrol. Will have RT eval for home oxygen, regardless she will need at least her baseline oxygen supplied prior to discharge. She deneis CP, Abd. pain, N/V/D. - Review of Systems Constitutional: No Fever, No Chills Eyes: No Symptoms Ears, Nose, & Throat: No Symptoms Respiratory: Cough, Short Of Breath Cardiac: No Chest Pain, No Edema, No Syncope Abdominal/Gastrointestinal: No Abdominal Pain, No Nausea, No Vomiting, No Diarrhea Genitourinary Symptoms: No Dysuria Musculoskeletal: No Back Pain, No Neck Pain Skin: No Rash Neurological: No Dizziness, No Focal Weakness, No Sensory Changes Psychological: No Symptoms Endocrine: No Symptoms Hematologic/Lymphatic: No Symptoms Immunological/Allergic: No Symptoms Objective Exam General Appearance: no apparent distress, alert Neurologic Exam: alert, oriented x 3, cooperative, normal mood/affect, nml cerebellar function, sensation nml, No motor deficits Skin Exam: normal color, warm, dry Eye Exam: PERRL, EOMI, eyes nml inspection Ears, Nose, Throat Exam: normal ENT inspection, pharynx normal, moist mucous membranes Neck Exam: normal inspection, non-tender, supple, full range of motion Respiratory Exam: crackles/rales (throughout), No respiratory distress Cardiovascular Exam: regular rate/rhythm, normal heart sounds Gastrointestinal/Abdomen Exam: soft, No tenderness, No mass Extremity Exam: normal inspection, normal range of motion Back Exam: normal inspection, normal range of motion, No CVA tenderness, No vertebral tenderness Pelvic Exam: deferred Rectal Exam: deferred OBJECTIVE DATA Vital Signs: Vital Signs - 24 hr Temp Pulse Resp BP Pulse Ox 04/10/23 11:06 85 20 99 04/10/23 07:58 97 F 91 H 18 118/70 90 L 04/10/23 07:26 88 18 98 04/10/23 03:56 97.2 F 88 19 119/66 95 04/10/23 03:20 88 18 94 L 04/09/23 23:33 84 18 92 L 04/09/23 23:13 97.4 F 86 21 108/55 93 L 04/09/23 19:47 97.0 F 90 26 H 102/59 93 L 04/09/23 18:53 83 18 93 L 04/09/23 16:00 97.3 F 88 20 113/57 92 L 04/09/23 12:00 98 F 88 22 105/58 93 L Pain Assessment - Last Documented Pain Intensity 4 Pain Scale Used [facility] Intake and Output: Intake & Output 04/07/23 04/08/23 04/09/23 04/10/23 11:59 11:59 11:59 11:59 Intake Total 760 1020 Balance 760 1020 Weight 80.8 kg Lab Results: Lab Results-Last 24 Hours 04/10/23 04/10/23 Range/Units 05:49 05:49 WBC 15.6 H (4.0-10.5) x10^3/uL RBC 4.24 (4.1-5.4) x10^6/uL Hgb 11.9 L (12.0-16.0) g/dL Hct 37.6 (35-47) % MCV 88.7 (78-100) fL MCH 28.1 (26-32) pg MCHC 31.6 L (32-36) g/dL RDW 15.9 H (11.5-14.0) % Plt Count 227 (150-450) x10^3/uL MPV 10.7 (7.5-11.0) fL Gran % 91.0 H (36.0-66.0) % Immature Gran % (Auto) 0.6 H (0.00-0.4) % Nucleat RBC Rel Count 0.0 (0.00-0.1) % Eos # (Auto) 0 (0-0.5) x10^3/uL Immature Gran # (Auto) 0.09 H (0.00-0.03) x10^3u/L Absolute Lymphs (auto) 0.97 L (1.0-4.6) x10^3/uL Absolute Monos (auto) 0.33 (0.0-1.3) x10^3/uL Absolute Nucleated RBC 0.00 (0.00-0.01) x10^3u/L Lymphocytes % 6.2 L (24.0-44.0) % Monocytes % 2.1 (0.0-12.0) % Eosinophils % 0.0 (0.00-5.0) % Basophils % 0.1 (0.0-0.4) % Absolute Granulocytes 14.20 H (1.4-6.9) x10^3/uL Basophils # 0.02 (0-0.4) x10^3/uL Sodium 136 L (137-145) mmol/L Potassium 3.9 (3.5-5.1) mmol/L Chloride 104 (98-107) mmol/L Carbon Dioxide 29 (22-30) mmol/L Anion Gap 6.9 (5-15) MEQ/L BUN 18 H (7-17) mg/dL Creatinine 0.46 L (0.52-1.04) mg/dL Estimated GFR 105.5 ML/MIN Glucose 168 H (74-106) mg/dL Calcium 8.8 (8.4-10.2) mg/dL Total Bilirubin 0.30 (0.2-1.3) mg/dL AST 17 (14-36) U/L ALT 12 (0-35) U/L Alkaline Phosphatase 64 (38-126) U/L Serum Total Protein 6.4 (6.3-8.2) g/dL Albumin 3.4 L (3.5-5.0) g/dL Radiology Exams: Radiology Procedures Category Date Time Status CHEST 2 VIEWS (PA AND LAT) Stat Exams 04/08/23 17:11 Completed Assessment/Plan (1) COPD exacerbation Current Visit: Yes Status: Acute Assessment & Plan: -baseline oxygen is 4LNC @ home- she recently ran out of medication - She is on 5LNC at 99% -Will need 6-minute walk test to document chronic hypoxia -Doxycycline, Rocephin -solumedrol, DuoNebs, trelegy -Patient does not follow with pulmonology OP, would like referral at D/C Code(s): J44.1 - CHRONIC OBSTRUCTIVE PULMONARY DISEASE W (ACUTE) EXACERBATION (2) Infiltrate noted on imaging study Current Visit: Yes Status: Acute Assessment & Plan: -CXR with clearing right infiltrate, will continue on ceftriaxone/doxycycline for now - recent COVID - CT of chest since sxs worsening - d-dimer- pending Code(s): R93.89 - ABNORMAL FINDINGS ON DX IMAGING OF OTH BODY STRUCTURES (3) Smoker Current Visit: Yes Status: Acute Assessment & Plan: -Smoking cessation advised, patient not ready to quit - nicotine patch Code(s): F17.200 - NICOTINE DEPENDENCE, UNSPECIFIED, UNCOMPLICATED (4) Respiratory failure Current Visit: No Status: Acute Qualifiers: Chronicity: acute on chronic Respiratory failure complication: hypoxia Qualified Code(s): J96.21 - Acute and chronic respiratory failure with hypoxia Assessment & Plan: - Baseline 4lNC- now on 5lNC with O2 at 99%- will turn down - see COPD plan above Code(s): J96.90 - RESPIRATORY FAILURE, UNSP, UNSP W HYPOXIA OR HYPERCAPNIA (5) Acute hypokalemia Current Visit: Yes Status: Acute Assessment & Plan: - resolved VTE: Lovenox PPI: Protonix Next of Kin: sri Bustos [phone] D/C plan: 1-2 days Code status: SCO/DNR Code(s): E87.6 - HYPOKALEMIA
[2023-04-10] MEDS ORDERED: Tessalon Perles 100 MG PO PRN (13:02)
--- NOTE | 2023-04-10 14:38 | XRAY ---
CLINICAL HISTORY:worsening SOB COMPARISON:None. TECHNIQUE:Contiguous axial CT images of the chest were acquired with the administration of intravenous contrast. Coronal and sagittal reconstructions were also obtained. FINDINGS: Multiple bilateral upper and lower lobes and right middle lobe segmental and subsegmental patchy areas of pneumonic infiltrates with hazy ground glass opacities. Few enlarged mediastinal lymph nodes, the largest measuring 9 mm. No free or encysted pleural effusion. Heart size is normal, and there is no pericardial effusion. There is no definite mass lesion in the chest wall. The scanned upper abdomen shows a right adrenal gland hypodense lesion measuring 3.6 x 1.9 cm. Live appears hypodense, signifying diffuse fatty infiltration. Bilateral thyroid lobes small hypodense nodules are noted. Degenerative changes are seen in the spine. No focal lytic or sclerotic deposit could be identified. IMPRESSION: 1. Multiple bilateral upper and lower lobes and right middle lobe segmental and subsegmental patchy areas of ground glass opacities, pneumonic infiltrates, bacterial versus viral, covid, for clinical and laboratory correlation. 2. Few enlarged mediastinal lymph nodes. 3. Bilateral thyroid lobes small hypodense nodules, for further ultrasound evaluation. 4. Right adrenal hypodense lesion, for further evaluation. Electronically Signed by: Juan Francisco Gonzalez MD. (04/10/2023 14:34:07 EST)
[2023-04-10] MEDS: PATIENT OWN MEDICATION IH SCH (18:48)
[2023-04-10] MEDS: ROCEPHIN 1 Gm-D5w 50 ml Bag** 1 G/50 ML IVPB IV SCH (21:07)
[2023-04-10] MEDS: Protonix 40MG Tablet PO SCH (21:07)
[2023-04-10] MEDS: ZYLOPRIM 100 MG PO SCH (21:07)
[2023-04-11] MEDS: DUONEB 0.5-3 MG/3 ml Neb IH SCH ×4 (02:50→15:30)
[2023-04-11 04:39] LABS: Absolute Neutrophil Ct (ANC) 16.95 x10^3/uL (1.4-6.9); BASOPHIL % 0.1 % (0.0-0.4); Basophil (Absolute #) 0.01 x10^3/uL (0-0.4); Eosinophil (Absolute #) 0 x10^3/uL (0-0.5); Hematocrit 37.9 % (35-47); IMMATURE GRAN # 0.12 x10^3u/L (0.00-0.03); IMMATURE GRAN % 0.7 % (0.00-0.4); Lymphocyte (Absolute #) 1.01 x10^3/uL (1.0-4.6); Lymphocytes % 5.5 % (24.0-44.0); Mean Cell Volume 88.1 fL (78-100); Mean Corpuscular Hemoglobin 27.9 pg (26-32); Mean Corpuscular Hgb Concent. 31.7 g/dL (32-36); Mean Platelet Volume 10.3 fL (7.5-11.0); Monocyte (Absolute #) 0.36 x10^3/uL (0.0-1.3); Neutrophil % 91.7 % (36.0-66.0); Platelet Count 263 x10^3/uL (150-450); Red Cell Distribution Width 15.9 % (11.5-14.0); White Blood Count 18.5 x10^3/uL (4.0-10.5)
[2023-04-11 05:03] LABS: ANION GAP 9.1 MEQ/L (5-15); BILIRUBIN,TOTAL 0.2 mg/dL (0.2-1.3); Calcium 9.1 mg/dL (8.4-10.2); Creatinine 1 0.55 mg/dL (0.52-1.04); Potassium 4.4 mmol/L (3.5-5.1)
--- NOTE | 2023-04-11 08:59 | PCM.NOTE ---
Date and Time: 04/11/23 0848 Subjective Assessment: 04/10/23 This is a 67-year-old female admitted for acute COPD exacerbation and hypokalemia. She has past medical history COPD, Gout, GERD, and anxiety, chronic hypoxemic respiratory failure but has failed to be maintained on oxygen after move, recent COVID infection. She presented to the ED on 04/08 with c omplaints of cough productive of yellow and green sputum and shortness of breath. Chest x-ray with no acute pathology. Pt continues to endorse shortness of breath, cough with yellow sputum, and headache. Patient states she had COVID recently and was on doxycycline/medrol dose pack mid March, finishing around [place]. CXR does show some remaining right infiltrate that is clearing. On auscultation patient has coarse lung sounds throughout. She states her baseline oxygen is 4L O2 but she recently ran out of her home oxygen in early March and has been without since then. She is an everyday 1PPD smoker, we did discuss cessation but patient states she is not ready to quit. Plan is to continue current management with Ceftriaxone/doxy and solumedrol. Will have RT eval for home oxygen, regardless she will need at least her baseline oxygen supplied prior to discharge. She denies CP, Abd. pain, N/V/D. 04/11/23 Pt resting in bed. She reports she is feeling much better and is no longer SOB. Lungs sounds are clear today. She is on BL 4lNC at 93%. Discussed CT findings from yesterday. Pt is scheduled for an US of thyroid nodules and CT of abd. for adrenal lesion seen. Pt reports she has lost over 100lbs in a year and does not know why. She overall is feeling much better. She denies CP, Abd. pain, N/V/D. - Review of Systems Constitutional: No Fever, No Chills Eyes: No Symptoms Ears, Nose, & Throat: No Symptoms Respiratory: No Cough, No Short Of Breath Cardiac: No Chest Pain, No Edema, No Syncope Abdominal/Gastrointestinal: No Abdominal Pain, No Nausea, No Vomiting, No Diarrhea Genitourinary Symptoms: No Dysuria Musculoskeletal: No Back Pain, No Neck Pain Skin: No Rash Neurological: No Dizziness, No Focal Weakness, No Sensory Changes Psychological: No Symptoms Endocrine: No Symptoms Hematologic/Lymphatic: No Symptoms Immunological/Allergic: No Symptoms Objective Exam General Appearance: no apparent distress, alert Neurologic Exam: alert, oriented x 3, cooperative, normal mood/affect, nml cerebellar function, sensation nml, No motor deficits Skin Exam: normal color, warm, dry Eye Exam: PERRL, EOMI, eyes nml inspection Ears, Nose, Throat Exam: normal ENT inspection, pharynx normal, moist mucous membranes Neck Exam: normal inspection, non-tender, supple, full range of motion Respiratory Exam: normal breath sounds, lungs clear, No respiratory distress Cardiovascular Exam: regular rate/rhythm, normal heart sounds Gastrointestinal/Abdomen Exam: soft, No tenderness, No mass Extremity Exam: normal inspection, normal range of motion Back Exam: normal inspection, normal range of motion, No CVA tenderness, No vertebral tenderness Pelvic Exam: deferred Rectal Exam: deferred OBJECTIVE DATA Vital Signs: Vital Signs - 24 hr Temp Pulse Resp BP Pulse Ox 04/11/23 07:49 93 H 18 93 L 04/11/23 06:59 98.7 F 95 H 18 113/65 93 L 04/11/23 04:00 95.7 F 102 H 20 132/67 90 L 04/11/23 02:50 107 H 20 91 L 04/10/23 23:00 97.3 F 109 H 22 124/61 90 L 04/10/23 22:43 109 H 22 90 L 04/10/23 19:04 97.5 F 103 H 21 126/63 90 L 04/10/23 18:45 103 H 21 90 L 04/10/23 16:00 97.6 F 97 H 20 130/68 93 L 04/10/23 15:13 90 20 90 L 04/10/23 12:00 97.6 F 97 H 24 130/68 93 L 04/10/23 11:06 85 20 99 Pain Assessment - Last Documented Pain Intensity 0 Pain Scale Used [facility] Intake and Output: Intake & Output 04/08/23 04/09/23 04/10/23 04/11/23 11:59 11:59 11:59 11:59 Intake Total 760 1020 360 Balance 760 1020 360 Weight 80.8 kg Lab Results: Lab Results-Last 24 Hours 04/10/23 04/10/23 04/11/23 Range/Units 05:49 12:35 04:22 WBC 18.5 H (4.0-10.5) x10^3/uL RBC 4.30 (4.1-5.4) x10^6/uL Hgb 12.0 (12.0-16.0) g/dL Hct 37.9 (35-47) % MCV 88.1 (78-100) fL MCH 27.9 (26-32) pg MCHC 31.7 L (32-36) g/dL RDW 15.9 H (11.5-14.0) % Plt Count 263 (150-450) x10^3/uL MPV 10.3 (7.5-11.0) fL Gran % 91.7 H (36.0-66.0) % Immature Gran % (Auto) 0.7 H (0.00-0.4) % Nucleat RBC Rel Count 0.0 (0.00-0.1) % Eos # (Auto) 0 (0-0.5) x10^3/uL Immature Gran # (Auto) 0.12 H (0.00-0.03) x10^3u/L Absolute Lymphs (auto) 1.01 (1.0-4.6) x10^3/uL Absolute Monos (auto) 0.36 (0.0-1.3) x10^3/uL Absolute Nucleated RBC 0.00 (0.00-0.01) x10^3u/L Lymphocytes % 5.5 L (24.0-44.0) % Monocytes % 2.0 (0.0-12.0) % Eosinophils % 0.0 (0.00-5.0) % Basophils % 0.1 (0.0-0.4) % Absolute Granulocytes 16.95 H (1.4-6.9) x10^3/uL Basophils # 0.01 (0-0.4) x10^3/uL D-Dimer 0.54 H (0.0-0.50) mg/L Sodium (137-145) mmol/L Potassium (3.5-5.1) mmol/L Chloride (98-107) mmol/L Carbon Dioxide (22-30) mmol/L Anion Gap 6.9 (5-15) MEQ/L BUN (7-17) mg/dL Creatinine (0.52-1.04) mg/dL Estimated GFR ML/MIN Glucose (74-106) mg/dL Calcium (8.4-10.2) mg/dL Total Bilirubin (0.2-1.3) mg/dL AST (14-36) U/L ALT (0-35) U/L Alkaline Phosphatase (38-126) U/L Serum Total Protein (6.3-8.2) g/dL Albumin (3.5-5.0) g/dL 04/11/23 Range/Units 04:22 WBC (4.0-10.5) x10^3/uL RBC (4.1-5.4) x10^6/uL Hgb (12.0-16.0) g/dL Hct (35-47) % MCV (78-100) fL MCH (26-32) pg MCHC (32-36) g/dL RDW (11.5-14.0) % Plt Count (150-450) x10^3/uL MPV (7.5-11.0) fL Gran % (36.0-66.0) % Immature Gran % (Auto) (0.00-0.4) % Nucleat RBC Rel Count (0.00-0.1) % Eos # (Auto) (0-0.5) x10^3/uL Immature Gran # (Auto) (0.00-0.03) x10^3u/L Absolute Lymphs (auto) (1.0-4.6) x10^3/uL Absolute Monos (auto) (0.0-1.3) x10^3/uL Absolute Nucleated RBC (0.00-0.01) x10^3u/L Lymphocytes % (24.0-44.0) % Monocytes % (0.0-12.0) % Eosinophils % (0.00-5.0) % Basophils % (0.0-0.4) % Absolute Granulocytes (1.4-6.9) x10^3/uL Basophils # (0-0.4) x10^3/uL D-Dimer (0.0-0.50) mg/L Sodium 136 L (137-145) mmol/L Potassium 4.4 (3.5-5.1) mmol/L Chloride 104 (98-107) mmol/L Carbon Dioxide 28 (22-30) mmol/L Anion Gap 9.1 (5-15) MEQ/L BUN 18 H (7-17) mg/dL Creatinine 0.55 (0.52-1.04) mg/dL Estimated GFR 101.0 ML/MIN Glucose 138 H (74-106) mg/dL Calcium 9.1 (8.4-10.2) mg/dL Total Bilirubin 0.20 (0.2-1.3) mg/dL AST 17 (14-36) U/L ALT 11 (0-35) U/L Alkaline Phosphatase 58 (38-126) U/L Serum Total Protein 6.0 L (6.3-8.2) g/dL Albumin 3.0 L (3.5-5.0) g/dL Radiology Exams: Radiology Procedures Category Date Time Status ABDOMEN WITH CONTRAST [CT] Routine Exams 04/11/23 18:30 Ordered CHEST WITH CONTRAST [CT] Stat Exams 04/10/23 11:25 Completed THYROID [US] Routine Exams 04/11/23 09:00 Ordered Multi-Disciplinary Progress Notes: Multi-Disciplinary Progress Notes 04/11/23 06:27 Respiratory Note by Tyra Magallanes Patient states she does not want treatment at this time because it is not 7 o'clock Initialized on 04/11/23 06:27 - END OF NOTE Assessment/Plan (1) COPD exacerbation Current Visit: Yes Status: Acute Assessment & Plan: -baseline oxygen is 4LNC @ home- she recently ran out of oxygen - She is on 4LNC at 93% today -Will need 6-minute walk test to document chronic hypoxia and reorder home O2 -Doxycycline, Rocephin -solumedrol, rosalia Douglassgy -Patient does not follow with pulmonology OP, would like referral at D/C Code(s): J44.1 - CHRONIC OBSTRUCTIVE PULMONARY DISEASE W (ACUTE) EXACERBATION (2) Infiltrate noted on imaging study Current Visit: Yes Status: Acute Assessment & Plan: -CXR with clearing right infiltrate, will continue on ceftriaxone/doxycycline for now - recent COVID - CT of chest since sxs worsening 04/10/23 IMPRESSION: 1. Multiple bilateral upper and lower lobes and right middle lobe segmental and subsegmental patchy areas of ground glass opacities, pneumonic infiltrates, bacterial versus viral, covid, for clinical and laboratory correlation. 2. Few enlarged mediastinal lymph nodes. 3. Bilateral thyroid lobes small hypodense nodules, for further ultrasound evaluation. 4. Right adrenal hypodense lesion, for further evaluation. - d-dimer- 0.54 04/11/23 - Sxs improved on BL O2 Code(s): R93.89 - ABNORMAL FINDINGS ON DX IMAGING OF OTH BODY STRUCTURES (3) Smoker Current Visit: Yes Status: Acute Assessment & Plan: -Smoking cessation advised, patient not ready to quit - nicotine patch Code(s): F17.200 - NICOTINE DEPENDENCE, UNSPECIFIED, UNCOMPLICATED (4) Respiratory failure Current Visit: No Status: Acute Qualifiers: Chronicity: acute on chronic Respiratory failure complication: hypoxia Qualified Code(s): J96.21 - Acute and chronic respiratory failure with hypoxia Assessment & Plan: - Baseline 4lNC- now on 5lNC with O2 at 99%- will turn down - see COPD plan above Code(s): J96.90 - RESPIRATORY FAILURE, UNSP, UNSP W HYPOXIA OR HYPERCAPNIA (5) Acute hypokalemia Current Visit: Yes Status: Acute Assessment & Plan: - resolved Code(s): E87.6 - HYPOKALEMIA (6) Thyroid nodule Current Visit: Yes Status: Acute Assessment & Plan: - as seen on CT - TSH pending - US thyroid today - Pt reports she has lost > 100lbs in the past year. Code(s): E04.1 - NONTOXIC SINGLE THYROID NODULE (7) Adrenal nodule Current Visit: Yes Status: Acute Assessment & Plan: - as seen on most recent CT - CT abd with IV contrast today - will need Op f/u with endocrinology VTE: Lovenox PPI: Protonix Next of Kin: Darrel Bustos [phone] D/C plan: tomorrow Code status: SCO/DNR Code(s): E27.8 - OTHER SPECIFIED DISORDERS OF ADRENAL GLAND
[2023-04-11] MEDS: Nicoderm CQ 21 MG TOP SCH (09:11)
[2023-04-11] MEDS: Vibramycin 100 MG PO SCH (10:22)
[2023-04-11] MEDS: solu-MEDROL 40 MG, Sterile H2O 10 ml 1 ML IV SCH ×2 (10:22)
[2023-04-11] MEDS: ENOXAPARIN SODIUM SQ SCH (10:23)
--- NOTE | 2023-04-11 10:29 | XRAY ---
Indication: Thyroid nodules. Two-dimensional thyroid sonogram performed. Comparison: None No thyromegaly. Right lobe measures 2.9 x 1.8 x 1.5 cm and left measures 4.8 x 1.8 x 1.8 cm. Isthmus measures 3.4 mm. Thyroid parenchyma diffusely heterogeneous with left lower pole heterogeneous nodule measuring 1.6 x 1.0 x 1.4 cm. Right midpole demonstrates 8 x 8 x 8 mm heterogeneous nodule. Impression: Heterogeneous thyroid gland with indeterminant small bilateral thyroid nodules.
--- NOTE | 2023-04-11 11:13 | PCM.DS ---
Discharge Summary Date of Admission: 04/09/23 08:06 Date of Discharge: 04/11/23 Admitting Physician: ABELARDO COATES MD Primary Care Provider: MIKAYLA HENRIQUEZ Allergies Allergies Penicillins Allergy (Verified 04/08/23 16:42) [facility] Summary - Hospital Course Hospital Course: 04/10/23 This is a 67-year-old female admitted for acute COPD exacerbation and hypokalemia. She has past medical history COPD, Gout, GERD, and anxiety, chronic hypoxemic respiratory failure but has failed to be maintained on oxygen after move, recent COVID infection. She presented to the ED on 04/08 with complaints of cough productive of yellow and green sputum and shortness of breath. Chest x-ray with no acute pathology. Pt continues to endorse shortness of breath, cough with yellow sputum, and headache. Patient states she had COVID recently and was on doxycycline/medrol dose pack mid March, finishing around [place]. CXR does show some remaining right infiltrate that is clearing. On auscultation patient has coarse lung sounds throughout. She states her baseline oxygen is 4L O2 but she recently ran out of her home oxygen in early March and has been without since then. She is an everyday 1PPD smoker, we did discuss cessation but patient states she is not ready to quit. Plan is to continue current management with Ceftriaxone/doxy and solumedrol. Will have RT eval for home oxygen, regardless she will need at least her baseline oxygen supplied prior to discharge. She denies CP, Abd. pain, N/V/D. 04/11/23 Pt resting in bed. She reports she is feeling much better and is no longer SOB. Lungs sounds are clear today. She is on BL 4lNC at 93%. Discussed CT findings from yesterday. Pt is scheduled for an US of thyroid nodules and CT of abd. for adrenal lesion seen. Will start this workup but will need OP f/u with endocrinology. We were unable to make this appointment for her at this time. Pt reports she has lost over 100lbs in a year and does not know why. She overall is feeling much better. She denies CP, Abd. pain, N/V/D. - Vitals & Intake/Output Vital Signs: Vital Signs Temperature 98.7 F 04/11/23 06:59 Pulse Rate 93 H 04/11/23 07:49 Respiratory Rate 18 01/02/24 07:49 Blood Pressure 113/65 04/11/23 06:59 O2 Sat by Pulse Oximetry 91 L 04/11/23 10:55 Intake & Output: Intake & Output 04/08/23 04/09/23 04/10/23 04/11/23 11:59 11:59 11:59 11:59 Intake Total 760 1020 360 Balance 760 1020 360 Weight 80.8 kg - Lab Result Diagrams: 04/11/23 04:22 04/11/23 04:22 Lab Results-Last 24 Hrs: Lab Results-Last 24 Hours 04/10/23 04/11/23 04/11/23 Range/Units 12:35 04:22 04:22 WBC 18.5 H (4.0-10.5) x10^3/uL RBC 4.30 (4.1-5.4) x10^6/uL Hgb 12.0 (12.0-16.0) g/dL Hct 37.9 (35-47) % MCV 88.1 (78-100) fL MCH 27.9 (26-32) pg MCHC 31.7 L (32-36) g/dL RDW 15.9 H (11.5-14.0) % Plt Count 263 (150-450) x10^3/uL MPV 10.3 (7.5-11.0) fL Gran % 91.7 H (36.0-66.0) % Immature Gran % (Auto) 0.7 H (0.00-0.4) % Nucleat RBC Rel Count 0.0 (0.00-0.1) % Eos # (Auto) 0 (0-0.5) x10^3/uL Immature Gran # (Auto) 0.12 H (0.00-0.03) x10^3u/L Absolute Lymphs (auto) 1.01 (1.0-4.6) x10^3/uL Absolute Monos (auto) 0.36 (0.0-1.3) x10^3/uL Absolute Nucleated RBC 0.00 (0.00-0.01) x10^3u/L Lymphocytes % 5.5 L (24.0-44.0) % Monocytes % 2.0 (0.0-12.0) % Eosinophils % 0.0 (0.00-5.0) % Basophils % 0.1 (0.0-0.4) % Absolute Granulocytes 16.95 H (1.4-6.9) x10^3/uL Basophils # 0.01 (0-0.4) x10^3/uL D-Dimer 0.54 H (0.0-0.50) mg/L Sodium (137-145) mmol/L Potassium (3.5-5.1) mmol/L Chloride (98-107) mmol/L Carbon Dioxide (22-30) mmol/L Anion Gap (5-15) MEQ/L BUN (7-17) mg/dL Creatinine (0.52-1.04) mg/dL Estimated GFR ML/MIN Glucose (74-106) mg/dL Calcium (8.4-10.2) mg/dL Total Bilirubin (0.2-1.3) mg/dL AST (14-36) U/L ALT (0-35) U/L Alkaline Phosphatase (38-126) U/L Serum Total Protein (6.3-8.2) g/dL Albumin (3.5-5.0) g/dL TSH 3rd Generation 0.231 L (0.47-4.68) mIU/L 04/11/23 Range/Units 04:22 WBC (4.0-10.5) x10^3/uL RBC (4.1-5.4) x10^6/uL Hgb (12.0-16.0) g/dL Hct (35-47) % MCV (78-100) fL MCH (26-32) pg MCHC (32-36) g/dL RDW (11.5-14.0) % Plt Count (150-450) x10^3/uL MPV (7.5-11.0) fL Gran % (36.0-66.0) % Immature Gran % (Auto) (0.00-0.4) % Nucleat RBC Rel Count (0.00-0.1) % Eos # (Auto) (0-0.5) x10^3/uL Immature Gran # (Auto) (0.00-0.03) x10^3u/L Absolute Lymphs (auto) (1.0-4.6) x10^3/uL Absolute Monos (auto) (0.0-1.3) x10^3/uL Absolute Nucleated RBC (0.00-0.01) x10^3u/L Lymphocytes % (24.0-44.0) % Monocytes % (0.0-12.0) % Eosinophils % (0.00-5.0) % Basophils % (0.0-0.4) % Absolute Granulocytes (1.4-6.9) x10^3/uL Basophils # (0-0.4) x10^3/uL D-Dimer (0.0-0.50) mg/L Sodium 136 L (137-145) mmol/L Potassium 4.4 (3.5-5.1) mmol/L Chloride 104 (98-107) mmol/L Carbon Dioxide 28 (22-30) mmol/L Anion Gap 9.1 (5-15) MEQ/L BUN 18 H (7-17) mg/dL Creatinine 0.55 (0.52-1.04) mg/dL Estimated GFR 101.0 ML/MIN Glucose 138 H (74-106) mg/dL Calcium 9.1 (8.4-10.2) mg/dL Total Bilirubin 0.20 (0.2-1.3) mg/dL AST 17 (14-36) U/L ALT 11 (0-35) U/L Alkaline Phosphatase 58 (38-126) U/L Serum Total Protein 6.0 L (6.3-8.2) g/dL Albumin 3.0 L (3.5-5.0) g/dL TSH 3rd Generation (0.47-4.68) mIU/L Micro Results-Entire Visit: Microbiology 04/08/23 02:30 Gram Stain - Final Sputum - Expectorant - Radiology Exams Ordered Rad Exams-Entire Visit: Radiology Procedures Category Date Time Status ABDOMEN WITH CONTRAST [CT] Routine Exams 04/11/23 18:30 Ordered CHEST WITH CONTRAST [CT] Stat Exams 04/10/23 11:25 Completed THYROID [US] Routine Exams 04/11/23 09:00 Completed - Procedures and Test Procedures and Tests throughout Hospitalization: Therapy Orders & Screens 04/08/23 17:36 Respiratory Therapy Assessment DAILY Comment: 04/08/23 21:21 Oxygen Nasal Cannula 2 lpm Comment: Respiratory Therapy Consult ONCE Comment: Reason For Exam: 04/08/23 22:00 RT Screen per Nursing Assess ONCE Comment: Protocol Order Physician Instructions: Greater than 3 points order RT Admission Screen Reason For Exam: Triggered on Admission Diagnosis: COPD exc/Hypokalemia Diagnosis: COPD exc/Hypokalemia Pneumonia: Yes Home O2: Yes Asthma: Yes CHF: No Home CPAP/BIPAP: No Home Nebs/MDI: Yes Total Points: 17 Respiratory MDI BID Comment: Diagnosis: COPD exc/Hypokalemia Smoking Cessation Education ONCE Comment: Diagnosis: COPD exc/Hypokalemia Smoking Status: Current every day smoker How long have you smoked: 50 yrs Have you smoked in the past 12 months: Yes Do you dip or chew tobacco: No ST Screen per Nursing Assess ONCE Comment: Protocol Order Physician Instructions: Greater than [address] Admission Screening Reason For Exam: Triggered on Admission Diagnosis: COPD exc/Hypokalemia CVA/Dyshpagia/Aphasia: No Cognitive Deficits: No Dehydration/Nutrition Deficit: No Reflux: Yes Oral-Motor Difficulties: No Pneumonia: Yes Long-Term Resident: No Total Points: 8 04/08/23 23:31 Respiratory Therapy Assessment UD Comment: Diagnosis: COPD exc/Hypokalemia 04/10/23 22:00 Respiratory MDI QHS Comment: TRELEGY HOME INHALER Diagnosis: COPD exc/Hypokalemia 04/11/23 08:49 RT 6 Minute Walk ROUTINE Comment: for home o2 needs, pt reports BL 4lNC Diagnosis: COPD exc/Hypokalemia 04/11/23 09:56 Qualify for Home Oxygen TODAY Comment: Diagnosis: COPD exc/Hypokalemia Discharge Exam General Appearance: no apparent distress, alert Neurologic Exam: alert, oriented x 3, cooperative, normal mood/affect, nml cerebellar function, sensation nml, No motor deficits Eye Exam: PERRL, EOMI, eyes nml inspection Ears, Nose, Throat Exam: normal ENT inspection, pharynx normal, moist mucous membranes Neck Exam: normal inspection, non-tender, supple, full range of motion Respiratory Exam: normal breath sounds, lungs clear, No respiratory distress Cardiovascular Exam: regular rate/rhythm, normal heart sounds Gastrointestinal/Abdomen Exam: soft, No tenderness, No mass Pelvic Exam: deferred Rectal Exam: deferred Back Exam: normal inspection, normal range of motion, No CVA tenderness, No vertebral tenderness Extremity Exam: normal inspection, normal range of motion Skin Exam: normal color, warm, dry Final Diagnosis/Problem List - Final Discharge Diagnosis/Problem (1) COPD exacerbation Current Visit: Yes Status: Acute Code(s): J44.1 - CHRONIC OBSTRUCTIVE PULMONARY DISEASE W (ACUTE) EXACERBATION (2) Infiltrate noted on imaging study Current Visit: Yes Status: Acute Code(s): R93.89 - ABNORMAL FINDINGS ON DX IMAGING OF OTH BODY STRUCTURES (3) Smoker Current Visit: Yes Status: Acute Code(s): F17.200 - NICOTINE DEPENDENCE, UNSPECIFIED, UNCOMPLICATED (4) Respiratory failure Current Visit: No Status: Acute Code(s): J96.90 - RESPIRATORY FAILURE, UNSP, UNSP W HYPOXIA OR HYPERCAPNIA (5) Acute hypokalemia Current Visit: Yes Status: Acute Code(s): E87.6 - HYPOKALEMIA (6) Thyroid nodule Current Visit: Yes Status: Acute Code(s): E04.1 - NONTOXIC SINGLE THYROID NODULE (7) Adrenal nodule Current Visit: Yes Status: Acute Assessment & Plan: (1) COPD exacerbation Current Visit: Yes Status: Acute Assessment & Plan: -baseline oxygen is 4LNC @ home- she recently ran out of oxygen - She is on 4LNC at 93% today -Will need 6-minute walk test to document chronic hypoxia and reorder home O2 -Doxycycline, Rocephin -solumedrol, DuoNebs, trelegy -Patient does not follow with pulmonology OP, would like referral at D/C Code(s): J44.1 - CHRONIC OBSTRUCTIVE PULMONARY DISEASE W (ACUTE) EXACERBATION (2) Infiltrate noted on imaging study Current Visit: Yes Status: Acute Assessment & Plan: -CXR with clearing right infiltrate, will continue on ceftriaxone/doxycycline for now - recent COVID - CT of chest since sxs worsening 04/10/23 IMPRESSION: 1. Multiple bilateral upper and lower lobes and right middle lobe segmental and subsegmental patchy areas of ground glass opacities, pneumonic infiltrates, bacterial versus viral, covid, for clinical and laboratory correlation. 2. Few enlarged mediastinal lymph nodes. 3. Bilateral thyroid lobes small hypodense nodules, for further ultrasound evaluation. 4. Right adrenal hypodense lesion, for further evaluation. - d-dimer- 0.54 04/11/23 - Sxs improved on BL O2 Code(s): R93.89 - ABNORMAL FINDINGS ON DX IMAGING OF OTH BODY STRUCTURES (3) Smoker Current Visit: Yes Status: Acute Assessment & Plan: -Smoking cessation advised, patient not ready to quit - nicotine patch Code(s): F17.200 - NICOTINE DEPENDENCE, UNSPECIFIED, UNCOMPLICATED (4) Respiratory failure Current Visit: No Status: Acute Qualifiers: Chronicity: acute on chronic Respiratory failure complication: hypoxia Qualified Code(s): J96.21 - Acute and chronic respiratory failure with hypoxia Assessment & Plan: - Baseline 4lNC- now on 5lNC with O2 at 99%- will turn down - see COPD plan above Code(s): J96.90 - RESPIRATORY FAILURE, UNSP, UNSP W HYPOXIA OR HYPERCAPNIA (5) Acute hypokalemia Current Visit: Yes Status: Acute Assessment & Plan: - resolved Code(s): E87.6 - HYPOKALEMIA (6) Thyroid nodule Current Visit: Yes Status: Acute Assessment & Plan: - as seen on CT - TSH 0.231- hyperthyroidism - US thyroid today Impression: Heterogeneous thyroid gland with indeterminant small bilateral thyroid nodules. - Pt reports she has lost > 100lbs in the past year. - will need to f/u with endocrinology OP Code(s): E04.1 - NONTOXIC SINGLE THYROID NODULE (7) Adrenal nodule Current Visit: Yes Status: Acute Assessment & Plan: - as seen on most recent CT - CT abd with IV contrast 04/11/23 1. Bilateral adrenal adenomas as detailed stable in appearance dating back to October 29, 2020. 2. Chronic findings including arteriosclerotic disease and degenerative spondylosis. 3. Remaining CT abdomen with contrast exam is negative. - will need Op f/u with endocrinology Code(s): E27.8 - OTHER SPECIFIED DISORDERS OF ADRENAL GLAND - Discharge Discharge Date: 04/11/23 Disposition: Home, Self-Care Condition: Fair Prescriptions: New Doxycycline Hyclate 100 mg [Vibramycin 100 MG] 100 mg PO BID 3 Days #6 tablet Benzonatate 100 mg PO TID PRN PRN 10 Days #30 cap PRN Reason: Cough Prednisone 20 mg [Deltasone 20 mg] 20 mg PO BID 5 Days #10 tablet Albuterol Sulfate [Albuterol Sulfate Hfa] 8.5 gm IH DAILY PRN 30 Days #1 PRN Reason: Shortness Of Breath/Wheezing Albuterol 2.5 mg/3 ml Neb [Proventil 2.5 mg/3 ml Neb] 2.5 mg IH DAILY 10 Days #25 Continue Allopurinol 100 mg [Zyloprim 100 mg] 100 mg PO HS Fluticasone/Umeclidin/Vilanter [Trelegy Ellipta 200-62.5-25] 1 puff PO HS PANTOPRAZOLE 40 mg Tablet [Protonix 40MG Tablet] 40 mg PO QPM Ipratropium Regent [Atrovent Hfa] 1 inh IH QID PRN PRN PRN Reason: Shortness Of Breath Citalopram Hydrobromide 20 mg* [ceLEXa 20 MG] 20 mg PO HS Instructions: Oxygen Therapy, Adult (DC) Additional Instructions: WEAR 4L/NC WHEN AT REST, INCREASE UP TO 6L WITH WALKING/EXERTION CALL [facility] WHEN YOU LEAVE [facility] AT [phone] SO THEY CAN DELIVER YOUR HOME CONCENTRATOR AND NEB MACHINE. A REFERRAL WAS SENT TO [facility] DEPARTMENT TO SEE IF THEY CAN ASSIST YOU IN FINDING HOUSING. YOU CAN FOLLOWUP WITH THEM AT [phone] Will need to follow up with PCP about referral to endocrinology for further workup OP. Follow up with: CALLY LEUNG [ACTIVE STAFF] - MIKAYLA HENRIQUEZ MD [Primary Care Provider] - 04/18/23 11:00 am
--- NOTE | 2023-04-11 14:27 | XRAY ---
Indication: Adrenal mass on CT chest exam one day earlier. Multiple contiguous axial images obtained through the abdomen only using 80 cc Isovue 370 contrast. Comparison: None CT chest reported one day earlier. Right adrenal gland demonstrates bilobed noncalcified soft tissue mass measuring at least 4.2 x 1.9 cm in greatest axial dimension with Hounsfield units favoring benign adenoma. Smaller 2.5 x 1.3 cm left adrenal adenoma. Both adrenal masses unchanged in appearance with respect to CT chest October 29, 2020. Noncontrasted stomach and the size bowel loops appear nonobstructed. Previous cholecystectomy. No free fluid/air. Remaining liver, pancreas, spleen, adrenal glands, kidneys, and proximal ureters are unremarkable. Moderate scattered aortoiliac calcifications. No AAA or pathologic retroperitoneal lymphadenopathy. Visualized osseous structures intact with minimal degenerative changes throughout the spine. Impression: 1. Bilateral adrenal adenomas as detailed stable in appearance dating back to October 29, 2020. 2. Chronic findings including arteriosclerotic disease and degenerative spondylosis. 3. Remaining CT abdomen with contrast exam is negative.
[2023-04-11 16:56] VITALS: BP 106/61; PULSE 98; RESP 18; TEMP 98.8; O2SAT 97
== END 2023-04-11 18:39 | disposition home or self-care (01) | DRG 190 ==
LOC: ED 16:40 → MED SURG 21:03 → OBSVTOIN 04-09 08:06
PROVIDERS: ADMIT Internal Medicine; ATTEND Internal Medicine
DX: J44.1 Chronic obstructive pulmonary disease with (acute) exacerbation (principal); J96.90 Respiratory failure, unspecified, unspecified whether with hypoxia or hypercapnia; R93.89 Abnormal findings on diagnostic imaging of other specified body structures; F17.200 Nicotine dependence, unspecified, uncomplicated; E87.6 Hypokalemia; E04.1 Nontoxic single thyroid nodule; E27.9 Disorder of adrenal gland, unspecified; E78.5 Hyperlipidemia, unspecified; Z86.16 Personal history of COVID-19; Z79.899 Other long term (current) drug therapy; Z20.828 Contact with and (suspected) exposure to other viral communicable diseases; Z99.81 Dependence on supplemental oxygen
CPT/HCPCS: 0241U; 36000; 36415; 71046; 71260; 74160; 76536; 80048; 80053; 83735; 83880; 84443; 84484; 85025; 85379; 87070; 93005; 93268; 94618; 94640; 94760; 94762; 96360; 96365; 96367; 96374; 99285; G0378; Q3014; J0696; J1650; J2270; J2920; J3480; A9270-GY

== ENCOUNTER 2023-06-18 11:44 | Emergency (ER) | payer MEDICARE ==
[2023-06-18 12:33] VITALS: TEMP 97.4
[2023-06-18] MEDS ORDERED: DUONEB 0.5-3 MG/3 ml Neb IH ONE (12:35)
[2023-06-18 12:38] LABS: Absolute Neutrophil Ct (ANC) 5.67 x10^3/uL (1.4-6.9); BASOPHIL % 0.4 % (0.0-0.4); Basophil (Absolute #) 0.04 x10^3/uL (0-0.4); Eosinophil % 0.8 % (0.00-5.0); Eosinophil (Absolute #) 0.08 x10^3/uL (0-0.5); Hemoglobin 11.9 g/dL (12.0-16.0); IMMATURE GRAN # 0.07 x10^3u/L (0.00-0.03); IMMATURE GRAN % 0.7 % (0.00-0.4); Lymphocyte (Absolute #) 3.83 x10^3/uL (1.0-4.6); Lymphocytes % 37.6 % (24.0-44.0); Mean Cell Volume 89.6 fL (78-100); Mean Corpuscular Hemoglobin 28.1 pg (26-32); Mean Corpuscular Hgb Concent. 31.3 g/dL (32-36); Mean Platelet Volume 9.9 fL (7.5-11.0); Monocyte (Absolute #) 0.49 x10^3/uL (0.0-1.3); Monocytes % 4.8 % (0.0-12.0); Neutrophil % 55.7 % (36.0-66.0); Platelet Count 317 x10^3/uL (150-450); Red Blood Count 4.24 x10^6/uL (4.1-5.4); Red Cell Distribution Width 14.8 % (11.5-14.0); White Blood Count 10.2 x10^3/uL (4.0-10.5)
[2023-06-18] MEDS ORDERED: Sterile H2O 10 ml IJ ONE (12:39)
[2023-06-18] MEDS ORDERED: solu-MEDROL ONE (12:39)
[2023-06-18] MEDS: DUONEB 0.5-3 MG/3 ml Neb IH ONE (12:40)
[2023-06-18] MEDS: solu-MEDROL 125 MG, Sterile H2O 10 ml 2 ML IV ONE (12:41)
[2023-06-18 13:11] LABS: ALBUMIN 3.9 g/dL (3.5-5.0); ANION GAP 11.2 MEQ/L (5-15); BILIRUBIN,TOTAL 0.3 mg/dL (0.2-1.3); Calcium 9.2 mg/dL (8.4-10.2); Creatinine 1 0.45 mg/dL (0.52-1.04); MAGNESIUM 2.2 mg/dL (1.6-2.3); Potassium 4.1 mmol/L (3.5-5.1); Total Protein 7.3 g/dL (6.3-8.2)
--- NOTE | 2023-06-18 13:19 | ERPHSYRPT ---
- History of Present Illness Time Seen by Provider: 06/18/23 12:06 Source: patient Exam Limitations: no limitations Patient Subjective Stated Complaint: SOB Triage Nursing Assessment: Patient brought into ED per w/c and transferred self to bed. Patient A+O x3. Patient's skin pink, warm and dry. Patient complains of increased SOB for the past 2 weeks. Patient has COPD and wears home O2 at 6 liters per N/C. Patient complaina of intermittent productive cough with thick yellow sputum. Patient denies pain or discomfort. Physician History: 67 years old female with history of tobacco abuse, chronic respiratory failure secondary to COPD on 6 L oxygen presented in the ER with almost 2 weeks history of increasing cough productive of yellow-green sputum with chest tightness and wheezing. Patient reports feeling short of breath even with oxygen and gets worse with activity. No fever or chills reported. Denies any pal pitations/racing of the heart. Wants to make sure she does not have pneumonia. Denies any history of coronary artery disease. Allergies/Adverse Reactions: Penicillins Allergy (Verified 06/18/23 11:45) Hives Home Medications: Allopurinol 100 mg [Zyloprim 100 mg] 100 mg PO HS 10/30/20 [History] Fluticasone/Umeclidin/Vilanter [Trelegy Ellipta 200-62.5-25] 1 puff PO HS 04/08/23 [History] Ipratropium [place] [Atrovent Hfa] 1 inh IH QID PRN PRN 04/08/23 [History] PANTOPRAZOLE 40 mg Tablet [Protonix 40MG Tablet] 40 mg PO QPM 04/08/23 [History] Citalopram Hydrobromide 20 mg* [ceLEXa 20 MG] 20 mg PO HS 04/10/23 [History] Hx Tetanus, Diphtheria Vaccination/Date Given: No Hx Influenza Vaccination/Date Given: No Hx Pneumococcal Vaccination/Date Given: Yes Travel Risk - International Travel Have you traveled outside of the country in past 3 weeks: No - Coronavirus Screening Are you exhibiting any of the following symptoms?: No Close contact with a COVID-19 positive Pt in past 14-21 Days: No - Vaccine Status Have you recieved a Covid-19 vaccination: Yes Scraper Meat: Unknown - Vaccination Dates Date of 2cond Vaccination (if applicable): 2020 Dates if Unknown: unknown - Review of Systems Constitutional: Fatigue Eyes: No Symptoms Ears, Nose, & Throat: No Symptoms Respiratory: Cough, Dyspnea, Wheezing Cardiac: No Symptoms Abdominal/Gastrointestinal: No Symptoms Genitourinary Symptoms: No Symptoms Musculoskeletal: No Symptoms Skin: No Symptoms Neurological: No Symptoms Endocrine: No Symptoms Hematologic/Lymphatic: No Symptoms Immunological/Allergic: No Symptoms - Past Medical History Pertinent Past Medical History: Yes Neurological History: No Pertinent History ENT History: Cataracts Cardiac History: High Cholesterol Respiratory History: Asthma, Bronchitis, COPD, Emphysema, Pneumonia Endocrine Medical History: No Pertinent History Musculoskeletal History: No Pertinent History, Arthritis GI Medical History: GERD, Gallbladder Disease History: No Pertinent History Psycho-Social History: No Pertinent History, Anxiety Female Reproductive Disorders: No Pertinent History Other Medical History: GOUT, seasonal allergies, COVID-19 - Past Surgical History Past Surgical History: Yes Neuro Surgical History: No Pertinent History Cardiac: No Pertinent History Respiratory: No Pertinent History Gastrointestinal: Appendectomy, Cholecystectomy Genitourinary: No Pertinent History Musculoskeletal: Orthopedic Surgery Female Surgical History: Hysterectomy Other Surgical History: teeth removed, bunyonectomy, R hand had a crushing accident surgery to repair tendon involvement pinkie and ring finger on right hand bent at all times. - Social History Smoking Status: Current every day smoker How long have you smoked: 50 yrs Exposure to second hand smoke: Yes Drug Use: marijuana Patient Lives Alone: No - Nursing Vital Signs Nursing Vital Signs: Initial Vital Signs Temperature 97.4 F 06/18/23 11:46 Pulse Rate 88 06/18/23 11:46 Respiratory Rate 20 06/18/23 11:46 O2 Sat by Pulse Oximetry 96 06/18/23 11:46 Pain Scale Pain Intensity 0 - Physical Exam General Appearance: no apparent distress, alert Eye Exam: PERRL/EOMI Ears, Nose, Throat Exam: hearing grossly normal Neck Exam: normal inspection Respiratory Exam: rhonchi, wheezing Cardiovascular/Chest Exam: normal heart sounds, regular rate/rhythm Abdominal/Gastrointestinal Exam: soft, normal bowel sounds, No tenderness Extremity Exam: non-tender Neurologic Exam: alert, oriented x 3, cooperative Skin Exam: normal color SpO2 Interpretation: normal SpO2: 99 O2 Delivery: Room Air - Course EKG Interpreted by Me: RATE (73), Sinus Rhythm, Left [place] Deviation, LAFB, Q- wave, Non-specific ST Changes Ordered Tests: Active Orders 24 hr Category Date Time Status Gift Shop Assistant STAT Care 06/18/23 12:24 Active EKG-ER Only STAT Care 06/18/23 12:24 Active IV Insertion STAT Care 06/18/23 12:24 Active Oxygen-ED Only Nasal Cannula 6 lpm Care 06/18/23 12:27 Active CHEST 1 VIEW (PORTABLE) Stat Exams 06/18/23 12:24 Taken BLOOD CULTURE Stat Lab 06/18/23 13:12 Received CBC W DIFF Stat Lab 06/18/23 11:55 Completed CMP Stat Lab 06/18/23 11:55 Completed Lactic Acid Stat Lab 06/18/23 12:24 Completed MAGNESIUM Stat Lab 06/18/23 11:55 Completed NT PRO BNPII Stat Lab 06/18/23 11:55 Completed TROPONIN Q4H Lab 06/18/23 11:55 Completed TROPONIN Q4H Lab 06/18/23 16:30 Ordered TROPONIN Q4H Lab 06/18/23 20:30 Ordered Respiratory Therapy Assessment DAILY RT 06/18/23 12:45 Active Medication Summary Discontinued Medications Generic Name Dose Route Start Last Admin Trade Name Freq PRN Reason Stop Dose Admin Albuterol/Ipratropium 3 ml 06/18/23 12:24 06/18/23 12:40 Ipratropium/Albuterol Sulfate 3 Ml Ampul.Neb IH 06/18/23 12:25 3 ml STAT ONE Administration Albuterol/Ipratropium Confirm 06/18/23 12:35 Ipratropium/Albuterol Sulfate 3 Ml Ampul.Neb Administered 06/18/23 12:36 Dose 3 ml IH .STK-MED ONE Methylprednisolone Sodium 0 mg 06/18/23 12:24 06/18/23 12:41 Succinate 125 mg/ Sterile IV 06/18/23 12:25 125 mg Water 2 ml STAT ONE Administration Levofloxacin 500 mg 06/18/23 13:33 06/18/23 13:37 Levofloxacin 500 Mg Tablet PO 06/18/23 13:34 500 mg STAT ONE Administration Levofloxacin Confirm 06/18/23 13:34 Levofloxacin 500 Mg Tablet Administered 06/18/23 13:35 Dose 500 mg .ROUTE .STK-MED ONE Methylprednisolone Sodium Succinate Confirm 06/18/23 12:39 Methylprednis Sod Succ 125 Mg/2 Ml Vial Administered 06/18/23 12:40 Dose 125 mg .ROUTE .StyleQ ONE Sterile Water Confirm 06/18/23 12:39 Water For Injection,Sterile 10 Ml Vial Administered 06/18/23 12:40 Dose 10 ml IJ .[employer]MED ONE Lab/Rad Data: Laboratory Result Diagrams 06/18/23 11:55 06/18/23 11:55 Laboratory Results 06/18/23 06/18/23 06/18/23 Range/Units 12:24 11:55 11:55 WBC (4.0-10.5) x10^3/uL RBC (4.1-5.4) x10^6/uL Hgb (12.0-16.0) g/dL Hct (35-47) % MCV (78-100) fL MCH (26-32) pg MCHC (32-36) g/dL RDW (11.5-14.0) % Plt Count (150-450) x10^3/uL MPV (7.5-11.0) fL Gran % (36.0-66.0) % Immature Gran % (Auto) (0.00-0.4) % Nucleat RBC Rel Count (0.00-0.1) % Eos # (Auto) (0-0.5) x10^3/uL Immature Gran # (Auto) (0.00-0.03) x10^3u/L Absolute Lymphs (auto) (1.0-4.6) x10^3/uL Absolute Monos (auto) (0.0-1.3) x10^3/uL Absolute Nucleated RBC (0.00-0.01) x10^3u/L Lymphocytes % (24.0-44.0) % Monocytes % (0.0-12.0) % Eosinophils % (0.00-5.0) % Basophils % (0.0-0.4) % Absolute Granulocytes (1.4-6.9) x10^3/uL Basophils # (0-0.4) x10^3/uL Sodium 139 (135-145) mmol/L Potassium 4.1 (3.5-5.1) mmol/L Chloride 100 (98-107) mmol/L Carbon Dioxide 32 H (22-30) mmol/L Anion Gap 11.2 (5-15) MEQ/L BUN 18 H (7-17) mg/dL Creatinine 0.45 L (0.52-1.04) mg/dL Estimated GFR 106.0 ML/MIN Glucose 93 (74-106) mg/dL Lactic Acid 1.4 (0.4-2.0) Calcium 9.2 (8.4-10.2) mg/dL Magnesium 2.2 (1.6-2.3) mg/dL Total Bilirubin 0.30 (0.2-1.3) mg/dL AST 18 (14-36) U/L ALT 9 (0-35) U/L Alkaline Phosphatase 76 (38-126) U/L Troponin I < 0.012 (0.000-0.034) ng/mL NT-Pro-B Natriuret Pep 244 (<300) pg/mL Serum Total Protein 7.3 (6.3-8.2) g/dL Albumin 3.9 (3.5-5.0) g/dL 06/18/23 Range/Units 11:55 WBC 10.2 (4.0-10.5) x10^3/uL RBC 4.24 (4.1-5.4) x10^6/uL Hgb 11.9 L (12.0-16.0) g/dL Hct 38.0 (35-47) % MCV 89.6 (78-100) fL MCH 28.1 (26-32) pg MCHC 31.3 L (32-36) g/dL RDW 14.8 H (11.5-14.0) % Plt Count 317 (150-450) x10^3/uL MPV 9.9 (7.5-11.0) fL Gran % 55.7 (36.0-66.0) % Immature Gran % (Auto) 0.7 H (0.00-0.4) % Nucleat RBC Rel Count 0.0 (0.00-0.1) % Eos # (Auto) 0.08 (0-0.5) x10^3/uL Immature Gran # (Auto) 0.07 H (0.00-0.03) x10^3u/L Absolute Lymphs (auto) 3.83 (1.0-4.6) x10^3/uL Absolute Monos (auto) 0.49 (0.0-1.3) x10^3/uL Absolute Nucleated RBC 0.00 (0.00-0.01) x10^3u/L Lymphocytes % 37.6 (24.0-44.0) % Monocytes % 4.8 (0.0-12.0) % Eosinophils % 0.8 (0.00-5.0) % Basophils % 0.4 (0.0-0.4) % Absolute Granulocytes 5.67 (1.4-6.9) x10^3/uL Basophils # 0.04 (0-0.4) x10^3/uL Sodium (135-145) mmol/L Potassium (3.5-5.1) mmol/L Chloride (98-107) mmol/L Carbon Dioxide (22-30) mmol/L Anion Gap (5-15) MEQ/L BUN (7-17) mg/dL Creatinine (0.52-1.04) mg/dL Estimated GFR ML/MIN Glucose (74-106) mg/dL Lactic Acid (0.4-2.0) Calcium (8.4-10.2) mg/dL Magnesium (1.6-2.3) mg/dL Total Bilirubin (0.2-1.3) mg/dL AST (14-36) U/L ALT (0-35) U/L Alkaline Phosphatase (38-126) U/L Troponin I (0.000-0.034) ng/mL NT-Pro-B Natriuret Pep (<300) pg/mL Serum Total Protein (6.3-8.2) g/dL Albumin (3.5-5.0) g/dL - Progress Progress: improved, re-examined Air Movement: fair Progress Note: 06/18/23 13:47 67 years old is evaluated for worsening cough and some difficulty breathing. Patient is on 6 L oxygen with saturation around 96%. EKG showed sinus rhythm wi th no acute ST elevations. Negative initial troponins. Normal white count, lactate and fairly unremarkable chemistries. Chest x-ray reviewed by me revealed some questionable airspace disease on the right side. She is given DuoNeb and Solu-Medrol, on reevaluation she is feeling much better. She is still on 6 L which is her baseline but her chest tightness is much improved. Patient started on Levaquin. And will continue with short course of steroid. Recommended continuing with neb treatments and outpatient follow-up. Discussed signs symptoms of worsening needing return to ER which she seems understanding. Blood Culture(s) Obtained: Yes Antibiotics given: Yes Counseled pt/family regarding: lab results, diagnosis, need for follow-up, rad results, smoking cessation Medical Desision Making - Diagnostic Testing Diagnostic test were ordered, analyzed, and reviewed by me: Yes Radiological Interpretation: Interpreted by me, Reviewed by me - Risk of complications The pt has a mod risk of morbidity or mortality based on: Need for prescription drug management - Departure Departure Disposition: Home Clinical Impression: COPD exacerbation Condition: Stable Critical Care Time: No Referrals: MIKAYLA HENRIQUEZ MD [Primary Care Provider] - Follow up with PCP 1 day Instructions: Chronic Obstructive Pulmonary Disease, Exacerbation of COPD (DC) Additional Instructions: Continue with your neb treatments as recommended. Follow-up with primary care for reevaluation. Do not smoke. Return to ER for worsening cough or if having difficulty breathing/fever chills etc. Prescriptions: Prednisone 20 mg [Deltasone 20 mg] 60 mg PO DAILY 5 Days #15 tablet Levofloxacin [Levaquin 500 MG Tablet] 500 mg PO DAILY #7 tablet
[2023-06-18] MEDS ORDERED: Levofloxacin 500 MG Tablet ONE (13:34)
[2023-06-18] MEDS: Levofloxacin 500 MG Tablet PO ONE (13:37)
[2023-06-18 13:41] VITALS: BP 117/65; PULSE 87; RESP 23
[2023-06-18 13:51] VITALS: O2SAT 99
[2023-06-18 14:04] LABS: INFLUENZA A NEGATIVE (NEGATIVE); INFLUENZA B NEGATIVE (NEGATIVE); RESPIRATORY SYNCTIAL VIRUS NEGATIVE (NEGATIVE); SARS-CoV-2 Xpert Express NEGATIVE (NEGATIVE)
--- NOTE | 2023-06-18 18:32 | XRAY ---
Indication: Cough. Short of breath. Comparison: May 24, 2023 Portable chest again hyperinflated with chronic lung markings. No focal infiltrate, consolidation, or large effusion. Heart and mediastinal structures within normal limits. Bony thorax intact again with osteopenia and degenerative changes. Impression: Continued nonacute chest with chronic features.
== END 2023-06-18 14:06 | disposition home or self-care (01) ==
LOC: ED 11:44
DX: J44.1 Chronic obstructive pulmonary disease with (acute) exacerbation (principal); F17.200 Nicotine dependence, unspecified, uncomplicated; Z99.81 Dependence on supplemental oxygen; Z20.828 Contact with and (suspected) exposure to other viral communicable diseases; Z86.16 Personal history of COVID-19
CPT/HCPCS: 0241U; 36000; 36415; 71045; 80053; 83605; 83735; 83880; 84484; 85025; 87040; 93005; 93041; 94640; 96374; 99284; J2930; A9270-GY

== ENCOUNTER 2023-07-02 22:24 | Observation (INO) | payer MEDICARE ==
--- NOTE | 2023-07-02 22:32 | ERPHSYRPT ---
- History of Present Illness Time Seen by Provider: 07/02/23 22:32 Source: patient, EMS Physician History: 67yo f brought by EMS to ED for shortness of breath. Pt reports SOB started several days ago and has progressively worsened. Pt states she was admitted 3wks ago for COPD exacerbation, reports she really never felt better after discharge. Pt states she has some pleuritic pain when attempting to take a deep breath, reports cough productive of clear sputum. Pt denies fevers at home, cp, n/ v/abdominal pain. Pt reports she recently completed course of steroids. Pt saturating > 90% on home 6L O2 Timing/Duration: day(s) (4), worse Activities at Onset: none Severity of Dyspnea-Max: mild Severity of Dyspnea-Current: mild Possible Cause: frequent episodes Modifying Factors: Improves With: albuterol nebulizer Associated Symptoms: cough, chest pain/discomfort, wheezing, No fever, No ankle swelling, No chills, No dizziness, No heart racing, No leg swelling, No tightness, No tingling face, No tingling hands Allergies/Adverse Reactions: Penicillins Allergy (Verified 07/03/23 00:22) Anaphylactic Reaction Home Medications: Allopurinol 100 mg [Zyloprim 100 mg] 100 mg PO DAILY 10/30/20 [History] Fluticasone/Umeclidin/Vilanter [Trelegy Ellipta 200-62.5-25] 1 puff PO HS 04/08/23 [History] Ipratropium [place] [Atrovent Hfa] 1 inh IH QID PRN PRN 04/08/23 [History] PANTOPRAZOLE 40 mg Tablet [Protonix 40MG Tablet] 40 mg PO QPM 04/08/23 [History] risperiDONE [Risperdal] 0.5 mg PO BID 07/02/23 [History] Hx Tetanus, Diphtheria Vaccination/Date Given: No Hx Influenza Vaccination/Date Given: No Hx Pneumococcal Vaccination/Date Given: Yes - Review of Systems Constitutional: No Symptoms Respiratory: Cough, Dyspnea, Wheezing, No Stridor Cardiac: No Symptoms Abdominal/Gastrointestinal: No Symptoms - Past Medical History Pertinent Past Medical History: Yes Neurological History: No Pertinent History ENT History: Cataracts Cardiac History: High Cholesterol Respiratory History: Asthma, Bronchitis, COPD, Emphysema, Pneumonia Endocrine Medical History: No Pertinent History Musculoskeletal History: No Pertinent History, Arthritis GI Medical History: GERD, Gallbladder Disease History: No Pertinent History Psycho-Social History: No Pertinent History, Anxiety Female Reproductive Disorders: No Pertinent History Other Medical History: GOUT, seasonal allergies, COVID-19 - Past Surgical History Past Surgical History: Yes Neuro Surgical History: No Pertinent History Cardiac: No Pertinent History Respiratory: No Pertinent History Gastrointestinal: Appendectomy, Cholecystectomy Genitourinary: No Pertinent History Musculoskeletal: Orthopedic Surgery Female Surgical History: Hysterectomy Other Surgical History: teeth removed, bunyonectomy, R hand had a crushing accident surgery to repair tendon involvement pinkie and ring finger on right hand bent at all times. - Social History Smoking Status: Current every day smoker How long have you smoked: 50 yrs Exposure to second hand smoke: Yes Drug Use: marijuana Patient Lives Alone: No - Nursing Vital Signs Nursing Vital Signs: Initial Vital Signs Temperature 99.5 F 07/02/23 22:25 Pulse Rate 113 H 07/02/23 22:25 Respiratory Rate 26 H 07/02/23 22:25 Blood Pressure 97/54 07/02/23 22:25 O2 Sat by Pulse Oximetry 89 L 07/02/23 22:25 Pain Scale Pain Intensity 8 - Physical Exam General Appearance: no apparent distress, alert Respiratory Exam: airway intact, diminished breath sounds (diffusely), wheezing (expiratory, b/l), other (saturating > 90% on home O2 6L), No chest tenderness, No respiratory distress, No accessory muscle use, No stridor Cardiovascular/Chest Exam: normal heart sounds, normal peripheral pulses, tachycardia Abdominal/Gastrointestinal Exam: soft, No tenderness, No distention SpO2 Interpretation: normal, O2 applied SpO2: 91 (6L - baseline) O2 Delivery: Nasal Cannula - Course EKG Interpreted by Me: RATE ([id number]), Sinus Tach, LAFB, Non-specific ST Changes (not suggestive of ischemia) Ordered Tests: Active Orders 24 hr Category Date Time Status EKG-ER Only STAT Care 07/02/23 22:30 Active Pulse Oximetry (ED) STAT Care 07/02/23 22:30 Active CHEST 1 VIEW (PORTABLE) Stat Exams 07/02/23 22:31 Taken CHEST WITH CONTRAST [CT] Stat Exams 07/02/23 23:30 Taken ARTERIAL BLOOD GASES Stat Lab 07/02/23 22:45 Completed BLOOD CULTURE Stat Lab 07/02/23 23:45 Received CBC W DIFF Stat Lab 07/02/23 22:54 Completed CMP Stat Lab 07/02/23 22:54 Completed D-DIMER QUANTITATIVE Stat Lab 07/02/23 22:54 Completed Lactic Acid Stat Lab 07/02/23 23:12 Completed PROCALCITONIN Stat Lab 07/02/23 22:54 Completed Respiratory Therapy Assessment DAILY RT 07/02/23 22:59 Active Medication Summary Generic Name Dose Route Start Last Admin Trade Name Freq PRN Reason Stop Dose Admin Doxycycline Hyclate 100 mg/ 100 mls @ 100 mls/hr 07/03/23 10:00 07/03/23 01:05 Dextrose IV 08/02/23 09:59 100 mls/hr Q12HT CORAL Administration Discontinued Medications Generic Name Dose Route Start Last Admin Trade Name Freq PRN Reason Stop Dose Admin Albuterol/Ipratropium 3 ml 07/02/23 22:36 07/02/23 22:55 Ipratropium/Albuterol Sulfate 3 Ml Ampul.Neb IH 07/02/23 22:37 3 ml STAT ONE Administration Doxycycline Hyclate Confirm 07/03/23 00:24 Doxycycline Hyclate 100 Mg/Vial Injection Administered 07/03/23 00:25 Dose 100 mg IV .STK-MED ONE Sodium Chloride 1,000 mls @ 999 mls/hr 07/02/23 22:36 07/03/23 00:59 Sodium Chloride 0.9% 1000 Ml IV 07/02/23 23:36 Infused .Q1H1M STA Infusion Ceftriaxone Sodium 1 gm in 100 mls @ 200 mls/hr 07/02/23 23:12 Rocephin 1 Gm / 100 Ml Nacl IV 07/02/23 23:41 STAT ONE Azithromycin 500 mg in 250 mls @ 250 mls/hr 07/02/23 23:12 07/03/23 01:00 Zithromax 500 Mg/ 250 Ml Nacl Premix IV 07/03/23 00:11 Infused STAT STA Infusion Azithromycin Confirm 07/02/23 23:21 Zithromax 500 Mg/ 250 Ml Nacl Premix Administered 07/02/23 23:22 Dose 500 mg in 250 mls @ ud IV .STK-MED ONE Sodium Chloride Confirm 07/02/23 23:23 Sodium Chloride 0.9% 1000 Ml Administered 07/02/23 23:24 Dose 1,000 mls @ ud .ROUTE .STK-MED ONE Dextrose Confirm 07/03/23 00:24 D5w 100ml Mini Bag 100 Ml Administered 07/03/23 00:25 Dose 100 mls @ ud IV .STK-MED ONE Lab/Rad Data: Laboratory Result Diagrams 07/02/23 22:54 07/02/23 22:54 Laboratory Results 07/02/23 07/02/23 07/02/23 Range/Units 23:12 22:54 22:54 WBC (4.0-10.5) x10^3/uL RBC (4.1-5.4) x10^6/uL Hgb (12.0-16.0) g/dL Hct (35-47) % MCV (78-100) fL MCH (26-32) pg MCHC (32-36) g/dL RDW (11.5-14.0) % Plt Count (150-450) x10^3/uL MPV (7.5-11.0) fL Gran % (36.0-66.0) % Immature Gran % (Auto) (0.00-0.4) % Nucleat RBC Rel Count (0.00-0.1) % Eos # (Auto) (0-0.5) x10^3/uL Immature Gran # (Auto) (0.00-0.03) x10^3u/L Absolute Lymphs (auto) (1.0-4.6) x10^3/uL Absolute Monos (auto) (0.0-1.3) x10^3/uL Absolute Nucleated RBC (0.00-0.01) x10^3u/L Lymphocytes % (24.0-44.0) % Monocytes % (0.0-12.0) % Eosinophils % (0.00-5.0) % Basophils % (0.0-0.4) % Absolute Granulocytes (1.4-6.9) x10^3/uL Basophils # (0-0.4) x10^3/uL D-Dimer 0.60 H (0.0-0.50) mg/L Puncture Site pCO2 (35-45) mmHg pO2 (75-100) mmHg Base Excess (-2.0-2.0) O2 Saturation (94-100) g/dF ABG pH (7.35-7.45) ABG HCO3 (22-28) ABG O2 Sat (Measured) (95-100) % Baldomero Test A-a Gradient a/A Ratio Hemoglobin Carboxyhemoglobin (0.0-6.9) % THgb Methemoglobin (1.4-1.5) % Potassium (3.5-5.1) Temperature C POC O2 Flow Rate % Sodium (135-145) mmol/L Chloride (98-107) mmol/L Carbon Dioxide (22-30) mmol/L Anion Gap (5-15) MEQ/L BUN (7-17) mg/dL Creatinine (0.52-1.04) mg/dL Estimated GFR ML/MIN Glucose (74-106) mg/dL Lactic Acid 1.5 (0.4-2.0) Calcium (8.4-10.2) mg/dL Total Bilirubin (0.2-1.3) mg/dL AST (14-36) U/L ALT (0-35) U/L Alkaline Phosphatase (38-126) U/L Serum Total Protein (6.3-8.2) g/dL Albumin (3.5-5.0) g/dL Procalcitonin 0.043 (0.030-0.080) ng/mL Influenza Type A Ag (NEGATIVE) Influenza Type B Ag (NEGATIVE) RSV (PCR) (NEGATIVE) SARS-CoV-2 (PCR) (NEGATIVE) 07/02/23 07/02/23 07/02/23 Range/Units 22:54 22:54 22:54 WBC 22.1 H (4.0-10.5) x10^3/uL RBC 4.35 (4.1-5.4) x10^6/uL Hgb 12.1 (12.0-16.0) g/dL Hct 38.6 (35-47) % MCV 88.7 (78-100) fL MCH 27.8 (26-32) pg MCHC 31.3 L (32-36) g/dL RDW 15.7 H (11.5-14.0) % Plt Count 281 (150-450) x10^3/uL MPV 9.7 (7.5-11.0) fL Gran % 73.8 H (36.0-66.0) % Immature Gran % (Auto) 0.5 H (0.00-0.4) % Nucleat RBC Rel Count 0.0 (0.00-0.1) % Eos # (Auto) 0.04 (0-0.5) x10^3/uL Immature Gran # (Auto) 0.12 H (0.00-0.03) x10^3u/L Absolute Lymphs (auto) 4.32 (1.0-4.6) x10^3/uL Absolute Monos (auto) 1.27 (0.0-1.3) x10^3/uL Absolute Nucleated RBC 0.00 (0.00-0.01) x10^3u/L Lymphocytes % 19.5 L (24.0-44.0) % Monocytes % 5.7 (0.0-12.0) % Eosinophils % 0.2 (0.00-5.0) % Basophils % 0.3 (0.0-0.4) % Absolute Granulocytes 16.29 H (1.4-6.9) x10^3/uL Basophils # 0.06 (0-0.4) x10^3/uL D-Dimer (0.0-0.50) mg/L Puncture Site pCO2 (35-45) mmHg pO2 (75-100) mmHg Base Excess (-2.0-2.0) O2 Saturation (94-100) g/dF ABG pH (7.35-7.45) ABG HCO3 (22-28) ABG O2 Sat (Measured) (95-100) % Baldomero Test A-a Gradient a/A Ratio Hemoglobin Carboxyhemoglobin (0.0-6.9) % THgb Methemoglobin (1.4-1.5) % Potassium 3.5 (3.5-5.1) Temperature C POC O2 Flow Rate % Sodium 137 (135-145) mmol/L Chloride 97 L (98-107) mmol/L Carbon Dioxide 34 H (22-30) mmol/L Anion Gap 10.0 (5-15) MEQ/L BUN 14 (7-17) mg/dL Creatinine 0.63 (0.52-1.04) mg/dL Estimated GFR 97.8 ML/MIN Glucose 117 H (74-106) mg/dL Lactic Acid (0.4-2.0) Calcium 9.2 (8.4-10.2) mg/dL Total Bilirubin 0.40 (0.2-1.3) mg/dL AST 16 (14-36) U/L ALT 11 (0-35) U/L Alkaline Phosphatase 69 (38-126) U/L Serum Total Protein 7.4 (6.3-8.2) g/dL Albumin 3.8 (3.5-5.0) g/dL Procalcitonin (0.030-0.080) ng/mL Influenza Type A Ag NEGATIVE (NEGATIVE) Influenza Type B Ag NEGATIVE (NEGATIVE) RSV (PCR) NEGATIVE (NEGATIVE) SARS-CoV-2 (PCR) NEGATIVE (NEGATIVE) 07/02/23 Range/Units 22:45 WBC (4.0-10.5) x10^3/uL RBC (4.1-5.4) x10^6/uL Hgb (12.0-16.0) g/dL Hct (35-47) % MCV (78-100) fL MCH (26-32) pg MCHC (32-36) g/dL RDW (11.5-14.0) % Plt Count (150-450) x10^3/uL MPV (7.5-11.0) fL Gran % (36.0-66.0) % Immature Gran % (Auto) (0.00-0.4) % Nucleat RBC Rel Count (0.00-0.1) % Eos # (Auto) (0-0.5) x10^3/uL Immature Gran # (Auto) (0.00-0.03) x10^3u/L Absolute Lymphs (auto) (1.0-4.6) x10^3/uL Absolute Monos (auto) (0.0-1.3) x10^3/uL Absolute Nucleated RBC (0.00-0.01) x10^3u/L Lymphocytes % (24.0-44.0) % Monocytes % (0.0-12.0) % Eosinophils % (0.00-5.0) % Basophils % (0.0-0.4) % Absolute Granulocytes (1.4-6.9) x10^3/uL Basophils # (0-0.4) x10^3/uL D-Dimer (0.0-0.50) mg/L Puncture Site RIGHT RADIAL pCO2 45 (35-45) mmHg pO2 57 L (75-100) mmHg Base Excess 10.6 H (-2.0-2.0) O2 Saturation 88.6 L (94-100) g/dF ABG pH 7.50 H (7.35-7.45) ABG HCO3 35.1 H* (22-28) ABG O2 Sat (Measured) 92.5 L (95-100) % Baldomero Test yes A-a Gradient 200 a/A Ratio 0.22 Hemoglobin 12.6 Carboxyhemoglobin 3.2 (0.0-6.9) % THgb Methemoglobin 1.0 L (1.4-1.5) % Potassium 3.6 (3.5-5.1) Temperature 37.0 C POC O2 Flow Rate 44 % Sodium (135-145) mmol/L Chloride (98-107) mmol/L Carbon Dioxide (22-30) mmol/L Anion Gap (5-15) MEQ/L BUN (7-17) mg/dL Creatinine (0.52-1.04) mg/dL Estimated GFR ML/MIN Glucose (74-106) mg/dL Lactic Acid (0.4-2.0) Calcium (8.4-10.2) mg/dL Total Bilirubin (0.2-1.3) mg/dL AST (14-36) U/L ALT (0-35) U/L Alkaline Phosphatase (38-126) U/L Serum Total Protein (6.3-8.2) g/dL Albumin (3.5-5.0) g/dL Procalcitonin (0.030-0.080) ng/mL Influenza Type A Ag (NEGATIVE) Influenza Type B Ag (NEGATIVE) RSV (PCR) (NEGATIVE) SARS-CoV-2 (PCR) (NEGATIVE) - Progress Progress: improved Air Movement: good Progress Note: 07/02/23 23:17 pt meeting SIRS criteria w/ wbc 22k, HR 106, pneumonia on cxr blood cx pending x 2, lactic pending, continue 30cc/kg fluid resuscitation started on doxycycline and azithromycin IV pt reports anaphylaxis to penicillins - will avoid cephalosporins and zosyn 07/02/23 23:25 07/02/23 23:30 D dimer elevated, will obtain CTA chest for PE r/o pt does not meet PERC criteria 07/03/23 00:04 discussed admission to hospital for further IV fluids and abx w/ Dr Valdovinos who is willing to accept CTA chest pending Blood Culture(s) Obtained: Yes Antibiotics given: Yes Discussed with : Other (Dr Valdovinos) Will see patient in: hospital (observation) Counseled pt/family regarding: lab results, diagnosis, need for follow-up, rad results Medical Desision Making - Discussion of managment Care discussed with:: hospitalist Reviewed:: Test results Agreed on:: Treatment plan, place in obs Will see patient: in hospital - Diagnostic Testing Diagnostic test were ordered, analyzed, and reviewed by me: Yes Radiological Interpretation: Interpreted by me - Risk of complications The pt has a high risk of morbidity or mortality based on: Decision regarding hospitilization or escalation of hosp level of care - Departure Departure Disposition: Observation Clinical Impression: COPD exacerbation Sepsis Qualifiers: Sepsis type: sepsis due to unspecified organism Sepsis acute organ dysfunction status: without acute organ dysfunction Qualified Code(s): A41.9 - Sepsis, unspecified organism Pneumonia Qualifiers: Pneumonia type: due to unspecified organism Laterality: right Lung location: lower lobe of lung Qualified Code(s): J18.9 - Pneumonia, unspecified organism Condition: Stable Critical Care Time: No Referrals: MIKAYLA HENRIQUEZ MD [Primary Care Provider] - Follow up/PCP as directed Instructions: Chronic Obstructive Pulmonary Disease
[2023-07-02] MEDS: DUONEB 0.5-3 MG/3 ml Neb IH ONE (22:55)
[2023-07-02 22:56] LABS: A-aADO2 200; ABG HEMOGLOBIN 12.6; ABG POTASSIUM 3.6 (3.5-5.1); ARTERIAL BLD GAS O2 SATURATION 92.5 % (95-100); ARTERIAL BLOOD GAS BASE EXCESS 10.6 (-2.0-2.0); ARTERIAL BLOOD GAS FIO2 44 %; ARTERIAL BLOOD GAS PCO2 45 mmHg (35-45); ARTERIAL BLOOD GAS PO2 57 mmHg (75-100); CARBOXYHEMOGLOBIN 3.2 % THgb (0.0-6.9); HGB O2 SAT 88.6 g/dF (94-100); paO2 pAO1 0.22
[2023-07-02 22:57] LABS: ABG SITE RIGHT RADIAL; ALLEN TEST OK? yes; HCO3- 35.1 (22-28)
[2023-07-02 23:01] LABS: Absolute Neutrophil Ct (ANC) 16.29 x10^3/uL (1.4-6.9); BASOPHIL % 0.3 % (0.0-0.4); Basophil (Absolute #) 0.06 x10^3/uL (0-0.4); Eosinophil % 0.2 % (0.00-5.0); Eosinophil (Absolute #) 0.04 x10^3/uL (0-0.5); Hematocrit 38.6 % (35-47); Hemoglobin 12.1 g/dL (12.0-16.0); IMMATURE GRAN # 0.12 x10^3u/L (0.00-0.03); IMMATURE GRAN % 0.5 % (0.00-0.4); Lymphocyte (Absolute #) 4.32 x10^3/uL (1.0-4.6); Lymphocytes % 19.5 % (24.0-44.0); Mean Cell Volume 88.7 fL (78-100); Mean Corpuscular Hemoglobin 27.8 pg (26-32); Mean Corpuscular Hgb Concent. 31.3 g/dL (32-36); Mean Platelet Volume 9.7 fL (7.5-11.0); Monocyte (Absolute #) 1.27 x10^3/uL (0.0-1.3); Monocytes % 5.7 % (0.0-12.0); Neutrophil % 73.8 % (36.0-66.0); Platelet Count 281 x10^3/uL (150-450); Red Blood Count 4.35 x10^6/uL (4.1-5.4); Red Cell Distribution Width 15.7 % (11.5-14.0); White Blood Count 22.1 x10^3/uL (4.0-10.5)
[2023-07-02 23:16] LABS: ALBUMIN 3.8 g/dL (3.5-5.0); BILIRUBIN,TOTAL 0.4 mg/dL (0.2-1.3); Calcium 9.2 mg/dL (8.4-10.2); Creatinine 1 0.63 mg/dL (0.52-1.04); EST GLOMERULAR FILTRATION RATE 97.8 ML/MIN; Potassium 3.5 mmol/L (3.5-5.1); Total Protein 7.4 g/dL (6.3-8.2)
[2023-07-02] MEDS ORDERED: Zithromax 500 MG/ 250 ML NaCl Premix 500 MG/250 ML IVPB IV ONE (23:21)
[2023-07-02] MEDS ORDERED: Sodium Chloride 0.9% 1000 ML 1,000 ML ONE (23:23)
[2023-07-02] MEDS: Sodium Chloride 0.9% 1000 ML 1,000 ML IV STA (23:28)
[2023-07-02] MEDS: Zithromax 500 MG/ 250 ML NaCl Premix 500 MG/250 ML IVPB IV STA (23:29)
[2023-07-02 23:38] LABS: INFLUENZA A NEGATIVE (NEGATIVE); INFLUENZA B NEGATIVE (NEGATIVE); RESPIRATORY SYNCTIAL VIRUS NEGATIVE (NEGATIVE); SARS-CoV-2 Xpert Express NEGATIVE (NEGATIVE)
[2023-07-03] MEDS ORDERED: D5w 100ML Mini Bag 100 ML 100 ML IV ONE (00:24)
[2023-07-03] MEDS ORDERED: VIBRAMYCIN 100 MG IV ONE (00:24)
[2023-07-03] MEDS: VIBRAMYCIN 100 MG*** 100 MG in Dextrose 5%/Water IV Soln. 100ML PLUS BAG 100 ML IV SCH (01:05)
--- NOTE | 2023-07-03 01:19 | PCM.HP ---
History of Present Illness - Chief Complaint Chief Complaint: sob Date: 07/03/23 History of Present Illness: Ms. RAY is a 67 year old female with a past medical history significant for gout, COPD and GERD who presents to the hospital with complaints of increasing shortness of breath associated with low grade fever. Initial labs were notable for a WBC of 22k. D-dimer was elevated and she was sent for CTA chest to rule out PE. She was initially tachycardic, hypotensive and hypoxic. Lactic acid was normal but she was started on aggressive IVFs and empiric antibiotics to treat SIRS. She has been recommended for admission for further work up and evaluation. She is resting in bed in the ER, lethargic but arousable. No chest pain or palpitations. No nausea, vomiting or diarrhea. No dysuria, hematuria or foamy urine. No sick contacts. COVID/influenza negative. - Review of Systems Constitutional: Fever, Fatigue, Lethargy Eyes: No Vision Changes Ears, Nose, & Throat: No Nose Congestion Respiratory: Cough, Short Of Breath, No Orthopnea Cardiac: No Chest Pain, No Edema, No Palpitations Abdominal/Gastrointestinal: No Abdominal Pain, No Nausea, No Vomiting, No Diarrhea Genitourinary Symptoms: No Dysuria, No Frequency, No Hematuria Musculoskeletal: No Arthralgias, No Back Pain Skin: No Cellulitis, No Rash Neurological: No Dizziness, No Focal Weakness, No Gait Changes Psychological: No Suicidal Ideations Endocrine: No Polyuria, No Polydipsia Hematologic/Lymphatic: No Anemia Medications & Allergies Home Medications: Home Medication List Allopurinol 100 mg [Zyloprim 100 mg] 100 mg PO DAILY 10/30/20 [History Confirmed 07/02/23] Fluticasone/Umeclidin/Vilanter [Trelegy Ellipta 200-62.5-25] 1 puff PO HS 04/08/23 [History Confirmed 07/02/23] Ipratropium [place] [Atrovent Hfa] 1 inh IH QID PRN PRN 04/08/23 [History Confirmed 07/02/23] PANTOPRAZOLE 40 mg Tablet [Protonix 40MG Tablet] 40 mg PO QPM 04/08/23 [History Confirmed 07/02/23] Albuterol 2.5 mg/3 ml Neb [Proventil 2.5 mg/3 ml Neb] 2.5 mg IH DAILY 10 Days #25 04/11/23 [Rx Confirmed 07/02/23] Albuterol Sulfate [Albuterol Sulfate Hfa] 8.5 gm IH DAILY PRN 30 Days #1 04/11/23 [Rx Confirmed 07/02/23] risperiDONE [Risperdal] 0.5 mg PO BID 07/02/23 [History Confirmed 07/02/23] Allergies/Adverse Reactions: Allergies Allergy/AdvReac Type Severity Reaction Status Date / Time Penicillins Allergy Anaphylactic Verified 07/03/23 00:22 Reaction - Past Medical History Past Medical History: Yes Neurological History: No Pertinent History ENT History: Cataracts Cardiac History: High Cholesterol Respiratory History: Asthma, Bronchitis, COPD, Emphysema, Pneumonia Endocrine Medical History: No Pertinent History Musculoskelatal History: No Pertinent History, Arthritis GI Medical History: GERD, Gallbladder Disease History: No Pertinent History Pyscho-Social History: No Pertinent History, Anxiety Reproductive Disorders: No Pertinent History Comment: GOUT, seasonal allergies, COVID-19 - Past Surgical History Past Surgical History: Yes Neuro Surgical History: No Pertinent History Cardiac History: No Pertinent History Respiratory Surgery: No Pertinent History GI Surgical History: Appendectomy, Cholecystectomy Genitourinary Surgical Hx: No Pertinent History Musculskeletal Surgical Hx: Orthopedic Surgery Female Surgical History: Hysterectomy Other Surgical History: teeth removed, bunyonectomy, R hand had a crushing accident surgery to repair tendon involvement pinkie and ring finger on right hand bent at all times. - Social History Smoking Status: Current every day smoker How long have you smoked: 50 yrs Exposure to second hand smoke: Yes Alcohol: None Drug Use: marijuana - Social Determinants of Health Will the patient participate in the screening: Yes Do you worry about a steady place to live?: No Do you have any problems with any of the following?: No known problems In the past 12 months,have you had to go without utilities?: No Have you or anyone in your house had to go without enough: Choose not to answer Transportation Issues: No Has anyone in your support network made you feel unsafe?: No - Physical Exam Vital Signs: Vital Signs - 24 hr Temp Pulse Resp BP BP Pulse Ox 07/03/23 00:01 101 H 18 113/75 98 07/02/23 23:31 105 H 24 117/63 97 03/24/24 23:00 109 H 24 123/64 92 L 07/02/23 22:59 112 H 26 H 90 L 07/02/23 22:31 112 H 22 97/54 93 L 07/02/23 22:30 113 H 27 H 84/59 89 L 07/02/23 22:25 99.5 F 113 H 26 H 97/54 89 L General Appearance: lethargy Neurologic Exam: alert Ears, Nose, Throat Exam: dry mucous membranes Neck Exam: normal inspection, supple Respiratory Exam: rhonchi, No respiratory distress Cardiovascular Exam: regular rate/rhythm Gastrointestinal/Abdomen Exam: soft Extremity Exam: No pedal edema, No swelling Skin Exam: normal color, No rash Results - Labs Lab/Micro Results: Lab Results-Last 24 Hours 07/02/23 07/02/23 07/02/23 Range/Units 22:45 22:54 22:54 WBC 22.1 H (4.0-10.5) x10^3/uL RBC 4.35 (4.1-5.4) x10^6/uL Hgb 12.1 (12.0-16.0) g/dL Hct 38.6 (35-47) % MCV 88.7 (78-100) fL MCH 27.8 (26-32) pg MCHC 31.3 L (32-36) g/dL RDW 15.7 H (11.5-14.0) % Plt Count 281 (150-450) x10^3/uL MPV 9.7 (7.5-11.0) fL Gran % 73.8 H (36.0-66.0) % Immature Gran % (Auto) 0.5 H (0.00-0.4) % Nucleat RBC Rel Count 0.0 (0.00-0.1) % Eos # (Auto) 0.04 (0-0.5) x10^3/uL Immature Gran # (Auto) 0.12 H (0.00-0.03) x10^3u/L Absolute Lymphs (auto) 4.32 (1.0-4.6) x10^3/uL Absolute Monos (auto) 1.27 (0.0-1.3) x10^3/uL Absolute Nucleated RBC 0.00 (0.00-0.01) x10^3u/L Lymphocytes % 19.5 L (24.0-44.0) % Monocytes % 5.7 (0.0-12.0) % Eosinophils % 0.2 (0.00-5.0) % Basophils % 0.3 (0.0-0.4) % Absolute Granulocytes 16.29 H (1.4-6.9) x10^3/uL Basophils # 0.06 (0-0.4) x10^3/uL D-Dimer (0.0-0.50) mg/L Puncture Site RIGHT RADIAL pCO2 45 (35-45) mmHg pO2 57 L (75-100) mmHg Base Excess 10.6 H (-2.0-2.0) O2 Saturation 88.6 L (94-100) g/dF ABG pH 7.50 H (7.35-7.45) ABG HCO3 35.1 H* (22-28) ABG O2 Sat (Measured) 92.5 L (95-100) % Baldomero Test yes A-a Gradient 200 a/A Ratio 0.22 Hemoglobin 12.6 Carboxyhemoglobin 3.2 (0.0-6.9) % THgb Methemoglobin 1.0 L (1.4-1.5) % Potassium 3.6 3.5 (3.5-5.1) Temperature 37.0 C POC O2 Flow Rate 44 % Sodium 137 (135-145) mmol/L Chloride 97 L (98-107) mmol/L Carbon Dioxide 34 H (22-30) mmol/L Anion Gap 10.0 (5-15) MEQ/L BUN 14 (7-17) mg/dL Creatinine 0.63 (0.52-1.04) mg/dL Estimated GFR 97.8 ML/MIN Glucose 117 H (74-106) mg/dL Lactic Acid (0.4-2.0) Calcium 9.2 (8.4-10.2) mg/dL Total Bilirubin 0.40 (0.2-1.3) mg/dL AST 16 (14-36) U/L ALT 11 (0-35) U/L Alkaline Phosphatase 69 (38-126) U/L Serum Total Protein 7.4 (6.3-8.2) g/dL Albumin 3.8 (3.5-5.0) g/dL Procalcitonin (0.030-0.080) ng/mL Influenza Type A Ag (NEGATIVE) Influenza Type B Ag (NEGATIVE) RSV (PCR) (NEGATIVE) SARS-CoV-2 (PCR) (NEGATIVE) 07/02/23 07/02/23 07/02/23 Range/Units 22:54 22:54 22:54 WBC (4.0-10.5) x10^3/uL RBC (4.1-5.4) x10^6/uL Hgb (12.0-16.0) g/dL Hct (35-47) % MCV (78-100) fL MCH (26-32) pg MCHC (32-36) g/dL RDW (11.5-14.0) % Plt Count (150-450) x10^3/uL MPV (7.5-11.0) fL Gran % (36.0-66.0) % Immature Gran % (Auto) (0.00-0.4) % Nucleat RBC Rel Count (0.00-0.1) % Eos # (Auto) (0-0.5) x10^3/uL Immature Gran # (Auto) (0.00-0.03) x10^3u/L Absolute Lymphs (auto) (1.0-4.6) x10^3/uL Absolute Monos (auto) (0.0-1.3) x10^3/uL Absolute Nucleated RBC (0.00-0.01) x10^3u/L Lymphocytes % (24.0-44.0) % Monocytes % (0.0-12.0) % Eosinophils % (0.00-5.0) % Basophils % (0.0-0.4) % Absolute Granulocytes (1.4-6.9) x10^3/uL Basophils # (0-0.4) x10^3/uL D-Dimer 0.60 H (0.0-0.50) mg/L Puncture Site pCO2 (35-45) mmHg pO2 (75-100) mmHg Base Excess (-2.0-2.0) O2 Saturation (94-100) g/dF ABG pH (7.35-7.45) ABG HCO3 (22-28) ABG O2 Sat (Measured) (95-100) % Baldomero Test A-a Gradient a/A Ratio Hemoglobin Carboxyhemoglobin (0.0-6.9) % THgb Methemoglobin (1.4-1.5) % Potassium (3.5-5.1) Temperature C POC O2 Flow Rate % Sodium (135-145) mmol/L Chloride (98-107) mmol/L Carbon Dioxide (22-30) mmol/L Anion Gap (5-15) MEQ/L BUN (7-17) mg/dL Creatinine (0.52-1.04) mg/dL Estimated GFR ML/MIN Glucose (74-106) mg/dL Lactic Acid (0.4-2.0) Calcium (8.4-10.2) mg/dL Total Bilirubin (0.2-1.3) mg/dL AST (14-36) U/L ALT (0-35) U/L Alkaline Phosphatase (38-126) U/L Serum Total Protein (6.3-8.2) g/dL Albumin (3.5-5.0) g/dL Procalcitonin 0.043 (0.030-0.080) ng/mL Influenza Type A Ag NEGATIVE (NEGATIVE) Influenza Type B Ag NEGATIVE (NEGATIVE) RSV (PCR) NEGATIVE (NEGATIVE) SARS-CoV-2 (PCR) NEGATIVE (NEGATIVE) 07/02/23 Range/Units 23:12 WBC (4.0-10.5) x10^3/uL RBC (4.1-5.4) x10^6/uL Hgb (12.0-16.0) g/dL Hct (35-47) % MCV (78-100) fL MCH (26-32) pg MCHC (32-36) g/dL RDW (11.5-14.0) % Plt Count (150-450) x10^3/uL MPV (7.5-11.0) fL Gran % (36.0-66.0) % Immature Gran % (Auto) (0.00-0.4) % Nucleat RBC Rel Count (0.00-0.1) % Eos # (Auto) (0-0.5) x10^3/uL Immature Gran # (Auto) (0.00-0.03) x10^3u/L Absolute Lymphs (auto) (1.0-4.6) x10^3/uL Absolute Monos (auto) (0.0-1.3) x10^3/uL Absolute Nucleated RBC (0.00-0.01) x10^3u/L Lymphocytes % (24.0-44.0) % Monocytes % (0.0-12.0) % Eosinophils % (0.00-5.0) % Basophils % (0.0-0.4) % Absolute Granulocytes (1.4-6.9) x10^3/uL Basophils # (0-0.4) x10^3/uL D-Dimer (0.0-0.50) mg/L Puncture Site pCO2 (35-45) mmHg pO2 (75-100) mmHg Base Excess (-2.0-2.0) O2 Saturation (94-100) g/dF ABG pH (7.35-7.45) ABG HCO3 (22-28) ABG O2 Sat (Measured) (95-100) % Baldomero Test A-a Gradient a/A Ratio Hemoglobin Carboxyhemoglobin (0.0-6.9) % THgb Methemoglobin (1.4-1.5) % Potassium (3.5-5.1) Temperature C POC O2 Flow Rate % Sodium (135-145) mmol/L Chloride (98-107) mmol/L Carbon Dioxide (22-30) mmol/L Anion Gap (5-15) MEQ/L BUN (7-17) mg/dL Creatinine (0.52-1.04) mg/dL Estimated GFR ML/MIN Glucose (74-106) mg/dL Lactic Acid 1.5 (0.4-2.0) Calcium (8.4-10.2) mg/dL Total Bilirubin (0.2-1.3) mg/dL AST (14-36) U/L ALT (0-35) U/L Alkaline Phosphatase (38-126) U/L Serum Total Protein (6.3-8.2) g/dL Albumin (3.5-5.0) g/dL Procalcitonin (0.030-0.080) ng/mL Influenza Type A Ag (NEGATIVE) Influenza Type B Ag (NEGATIVE) RSV (PCR) (NEGATIVE) SARS-CoV-2 (PCR) (NEGATIVE) - Radiology Impressions Radiology Exams & Impressions: Radiology Procedures Category Date Time Status CHEST 1 VIEW (PORTABLE) Stat Exams 07/02/23 22:31 Taken CHEST WITH CONTRAST [CT] Stat Exams 07/02/23 23:30 Taken - Other Procedures and Tests Respiratory Therapy 07/02/23 22:59 Respiratory Therapy Assessment DAILY Assessment/Plan (1) COPD exacerbation Current Visit: Yes Status: Acute Assessment & Plan: Likely from pneumonia 1. Admit to hospital 2. IV steroids 3. Duonebs 4. Supplemental O2 5. Monitor oxygen sats Code(s): J44.1 - CHRONIC OBSTRUCTIVE PULMONARY DISEASE W (ACUTE) EXACERBATION (2) Pneumonia Current Visit: Yes Status: Acute Qualifiers: Pneumonia type: due to unspecified organism Laterality: right Lung location: lower lobe of lung Qualified Code(s): J18.9 - Pneumonia, unspecified organism Assessment & Plan: Has SIRS with R sided pneumonia, d-dimer elevated 1. Empiric antibiotics 2. IVFs 3. Trend lactic acid 4. Follow up CTA chest 5. Sputum culture Code(s): J18.9 - PNEUMONIA, UNSPECIFIED ORGANISM (3) Alkalosis, metabolic Current Visit: Yes Status: Acute Assessment & Plan: Likely from combination of respiratory acidosis and volume contraction 1. IVFs 2. Encourage PO intake 3. ABG prn Code(s): E87.3 - ALKALOSIS (4) Gout Current Visit: Yes Status: Acute Qualifiers: Chronicity: chronic Assessment & Plan: No acute flare noted 1. Continue allopurinol 2. Check uric acid prn Code(s): M10.9 - GOUT, UNSPECIFIED Telemedicine Encounter - Telemedicine Encounter Telemedicine Encounter: The entirety of this encounter was performed via Telemedicine"
--- NOTE | 2023-07-03 01:24 | XRAY ---
CLINICAL HISTORY: elevated d dimer, tachycardia, sob TECHNIQUE: Contiguous axial CT images of the chest were acquired with administration of 100 cc Isovue-370 as intravenous contrast. Coronal and sagittal reconstructions were obtained. One of the following dose reduction techniques were utilized for this exam: Automated exposure control, adjustment of the mA and/or kV according to patient size, and use of iterative reconstruction. COMPARISON: CT: 04/10/2023. FINDINGS: There are patches of consolidation in the right upper lobe anteriorly and medial segment of the right middle lobe, along with scattered centrilobular nodules. Minor consolidative patch is also suggested in the anterior/medial segment of the right lower lobe with perihilar peribronchial thickening. Few enlarged mediastinal lymph nodes, index 1.2 cm pretracheal lymph node. No definite filling defect identified bilateral pulmonary arteries to suggest pulmonary embolism. However, please note that the study is not performed on CT pulmonary angiography protocol with delayed & suboptimal contrast opacification of the pulmonary arteries. No pneumothorax. Central patent trachea. No endobronchial lesion is identified. No free or encysted pleural effusion. Heart size is normal, and there is no pericardial effusion. No pathologically enlarged mediastinal or hilar lymph nodes identified. Stable thyroid nodules. No supraclavicular or axillary lymphadenopathy. There is no definite mass lesion in the chest wall. Scanned upper abdomen is unremarkable except for stable right adrenal nodule. Degenerative changes are seen in the spine. IMPRESSION: 1. interval development of the patches of consolidation in the right lung along with scattered centrilobular nodules. 2. interval resolution of previously noted bilateral scattered groundglass changes/pneumonic infiltrates. 3. Few enlarged mediastinal lymph nodes, index 1.2 cm pretracheal lymph node (prior 1cm). 4. No definite filling defect identified in bilateral pulmonary arteries (please note that the study is suboptimal with delayed contrast opacification of the pulmonary arteries). Repeat CT pulmonary angiogram is suggested to confidently exclude pulmonary embolism, if clinically indicated. Upon comparison with the previous CT dated 04/10/2023: Electronically Signed by: Juan Francisco Gonzalez MD. (07/03/2023 01:18:45 EDT)
[2023-07-03] MEDS ORDERED: TYLENOL 325 MG PO PRN ×2 (02:16→04:13)
[2023-07-03] MEDS ORDERED: Docusate Sodium 100 MG PO PRN ×2 (02:16→10:00)
[2023-07-03] MEDS ORDERED: Sodium Chloride 0.9% 1000 ML 1,000 ML IV SCH (02:30)
[2023-07-03] MEDS ORDERED: Sodium Chloride 0.9% 1000 ML 1,000 ML ONE (03:49)
[2023-07-03] MEDS: Sodium Chloride 0.9% 1000 ML 1,000 ML IV SCH (04:15)
[2023-07-03 05:13] LABS: Absolute Neutrophil Ct (ANC) 15.34 x10^3/uL (1.4-6.9); BASOPHIL % 0.1 % (0.0-0.4); Basophil (Absolute #) 0.03 x10^3/uL (0-0.4); Eosinophil % 0.1 % (0.00-5.0); Eosinophil (Absolute #) 0.02 x10^3/uL (0-0.5); Hematocrit 33.8 % (35-47); Hemoglobin 10.5 g/dL (12.0-16.0); IMMATURE GRAN % 0.5 % (0.00-0.4); Lymphocyte (Absolute #) 4.08 x10^3/uL (1.0-4.6); Lymphocytes % 19.5 % (24.0-44.0); Mean Cell Volume 89.2 fL (78-100); Mean Corpuscular Hemoglobin 27.7 pg (26-32); Mean Corpuscular Hgb Concent. 31.1 g/dL (32-36); Mean Platelet Volume 10.3 fL (7.5-11.0); Monocyte (Absolute #) 1.39 x10^3/uL (0.0-1.3); Monocytes % 6.6 % (0.0-12.0); Neutrophil % 73.2 % (36.0-66.0); Platelet Count 255 x10^3/uL (150-450); Red Blood Count 3.79 x10^6/uL (4.1-5.4); Red Cell Distribution Width 16.1 % (11.5-14.0)
[2023-07-03 05:36] LABS: ALBUMIN 3.1 g/dL (3.5-5.0); ANION GAP 8.3 MEQ/L (5-15); BILIRUBIN,TOTAL 0.3 mg/dL (0.2-1.3); Calcium 8.3 mg/dL (8.4-10.2); Creatinine 1 0.51 mg/dL (0.52-1.04); EST GLOMERULAR FILTRATION RATE 102.9 ML/MIN; Potassium 3.3 mmol/L (3.5-5.1); Total Protein 6.4 g/dL (6.3-8.2)
[2023-07-03] MEDS ORDERED: DUONEB 0.5-3 MG/3 ml Neb IH SCH (07:00)
[2023-07-03] MEDS: PROVENTIL 2.5 MG/3 ML NEB IH SCH (07:17)
[2023-07-03] MEDS ORDERED: IPRATROPIUM BROMIDE AD IH PRN (07:50)
[2023-07-03] MEDS ORDERED: VENTOLIN COMMON CANISTER IH PRN (07:50)
[2023-07-03] MEDS: ROCEPHIN 1 GM / 100 ML NaCl 1 GM/100 ML IVPB IV ONE (08:03)
[2023-07-03] MEDS ORDERED: MEDICATION INTERVENTION MC SCH (08:15)
[2023-07-03] MEDS: Klor Con PO SCH (08:27)
--- NOTE | 2023-07-03 08:39 | XRAY ---
Indication: Short of breath. Comparison: June 18, 2023 Portable chest demonstrates new mild right mid to lower lung infiltrate/atelectasis without consolidation/large effusion. Remaining heart and left lung unremarkable.
[2023-07-03] MEDS ORDERED: Zithromax 500 MG/ 250 ML NaCl Premix 500 MG/250 ML IVPB IV SCH ×2 (10:00→22:00)
[2023-07-03] MEDS ORDERED: ENOXAPARIN SODIUM SQ SCH (10:00)
[2023-07-03] MEDS ORDERED: NON-FORMULARY ITEM (Risperidone [Risperdal] 0.5 MG Tablet) PO SCH (10:00)
[2023-07-03] MEDS ORDERED: Risperdal 1 MG PO SCH (10:00)
[2023-07-03] MEDS ORDERED: ZYLOPRIM 100 MG PO SCH ×2 (10:00)
[2023-07-03] MEDS ORDERED: PROVENTIL 2.5 MG/3 ML NEB IH SCH (10:00)
[2023-07-03] MEDS ORDERED: Protonix 40MG Tablet PO SCH ×3 (10:00→22:00)
[2023-07-03] MEDS ORDERED: solu-MEDROL 20 MG, Sterile H2O 10 ml 1 ML IV SCH (10:00)
[2023-07-03] MEDS: ENOXAPARIN SODIUM SQ SCH (10:43)
[2023-07-03] MEDS: Risperdal 1 MG PO SCH (10:43)
[2023-07-03] MEDS: ZYLOPRIM 100 MG PO SCH (10:43)
[2023-07-03] MEDS: solu-MEDROL 40 MG, Sterile H2O 10 ml 1 ML IV SCH (10:49)
[2023-07-03] MEDS: LEVOFLOXACIN 750MG/150ML D5W 750 MG/150 ML BAG IV SCH (10:49)
[2023-07-03 11:26] VITALS: BP 133/57; PULSE 92; RESP 19; TEMP 97.5; O2SAT 99
[2023-07-03] MEDS ORDERED: HYDROCODONE-CHLORPHEN ER SUSP PO PRN (11:56)
--- NOTE | 2023-07-03 12:23 | PCM.DS ---
Discharge Summary Date of Admission: 07/03/23 02:12 Date of Discharge: 07/03/23 Admitting Physician: ANTOINE MON MD Primary Care Provider: MIKAYLA HENRIQUEZ Allergies Allergies Penicillins Allergy (Verified 07/03/23 00:22) Anaphylactic Reaction Hospital Summary - Hospital Course Hospital Course: Ms. RAY is a 67 year old female with a past medical history significant for gout, COPD and GERD who presented to the hospital on 07/01 with complaints of increasing shortness of breath associated with low grade fever. Initial labs were notable for a WBC of 22k. D-dimer was elevated and she was sent for CTA chest to rule out PE. She was initially tachycardic, hypotensive and hypoxic. Lactic acid was normal but she was started on aggressive IVFs and empiric antibiotics to treat SIRS. She was recommended for admission for further work up and evaluation. COVID/influenza/ RSV negative. Procal negative. She is feeling much better today. She is on baseline O2 of 6LNC. Lung sounds are clear. She does have a cough with white production. She is requesting cough syrup. Discussed CT results. D-Dimer is 0.60 and she denies CP or SOB today. Levaquin and steroids continued for COPD exacerbation. Discussed smoking cessation and she reports she is not willing to stop and has been smoking 1/2 ppd since she was a teen. She denies any further concerns at this time. Appointment made with her [facility] and PCP for f/u care OP. - Vitals & Intake/Output Vital Signs: Vital Signs Temperature 97.5 F 07/03/23 11:25 Pulse Rate 92 H 07/03/23 11:25 Respiratory Rate 19 07/03/23 11:25 Blood Pressure 133/57 07/03/23 11:25 O2 Sat by Pulse Oximetry 99 07/03/23 11:25 Intake & Output: Intake & Output 06/30/23 07/01/23 07/02/23 07/03/23 11:59 11:59 11:59 11:59 Intake Total 400 Balance 400 Weight 83.3 kg - Lab Result Diagrams: 07/03/23 04:30 07/03/23 04:30 Lab Results-Last 24 Hrs: Lab Results-Last 24 Hours 07/02/23 07/02/23 07/02/23 Range/Units 22:45 22:54 22:54 WBC 22.1 H (4.0-10.5) x10^3/uL RBC 4.35 (4.1-5.4) x10^6/uL Hgb 12.1 (12.0-16.0) g/dL Hct 38.6 (35-47) % MCV 88.7 (78-100) fL MCH 27.8 (26-32) pg MCHC 31.3 L (32-36) g/dL RDW 15.7 H (11.5-14.0) % Plt Count 281 (150-450) x10^3/uL MPV 9.7 (7.5-11.0) fL Gran % 73.8 H (36.0-66.0) % Immature Gran % (Auto) 0.5 H (0.00-0.4) % Nucleat RBC Rel Count 0.0 (0.00-0.1) % Eos # (Auto) 0.04 (0-0.5) x10^3/uL Immature Gran # (Auto) 0.12 H (0.00-0.03) x10^3u/L Absolute Lymphs (auto) 4.32 (1.0-4.6) x10^3/uL Absolute Monos (auto) 1.27 (0.0-1.3) x10^3/uL Absolute Nucleated RBC 0.00 (0.00-0.01) x10^3u/L Lymphocytes % 19.5 L (24.0-44.0) % Monocytes % 5.7 (0.0-12.0) % Eosinophils % 0.2 (0.00-5.0) % Basophils % 0.3 (0.0-0.4) % Absolute Granulocytes 16.29 H (1.4-6.9) x10^3/uL Basophils # 0.06 (0-0.4) x10^3/uL D-Dimer (0.0-0.50) mg/L Puncture Site RIGHT RADIAL pCO2 45 (35-45) mmHg pO2 57 L (75-100) mmHg Base Excess 10.6 H (-2.0-2.0) O2 Saturation 88.6 L (94-100) g/dF ABG pH 7.50 H (7.35-7.45) ABG HCO3 35.1 H* (22-28) ABG O2 Sat (Measured) 92.5 L (95-100) % Baldomero Test yes A-a Gradient 200 a/A Ratio 0.22 Hemoglobin 12.6 Carboxyhemoglobin 3.2 (0.0-6.9) % THgb Methemoglobin 1.0 L (1.4-1.5) % Potassium 3.6 3.5 (3.5-5.1) Temperature 37.0 C POC O2 Flow Rate 44 % Sodium 137 (135-145) mmol/L Chloride 97 L (98-107) mmol/L Carbon Dioxide 34 H (22-30) mmol/L Anion Gap 10.0 (5-15) MEQ/L BUN 14 (7-17) mg/dL Creatinine 0.63 (0.52-1.04) mg/dL Estimated GFR 97.8 ML/MIN Glucose 117 H (74-106) mg/dL Lactic Acid (0.4-2.0) Calcium 9.2 (8.4-10.2) mg/dL Magnesium (1.6-2.3) mg/dL Total Bilirubin 0.40 (0.2-1.3) mg/dL AST 16 (14-36) U/L ALT 11 (0-35) U/L Alkaline Phosphatase 69 (38-126) U/L Serum Total Protein 7.4 (6.3-8.2) g/dL Albumin 3.8 (3.5-5.0) g/dL Procalcitonin (0.030-0.080) ng/mL Influenza Type A Ag (NEGATIVE) Influenza Type B Ag (NEGATIVE) RSV (PCR) (NEGATIVE) SARS-CoV-2 (PCR) (NEGATIVE) 07/02/23 07/02/23 07/02/23 Range/Units 22:54 22:54 22:54 WBC (4.0-10.5) x10^3/uL RBC (4.1-5.4) x10^6/uL Hgb (12.0-16.0) g/dL Hct (35-47) % MCV (78-100) fL MCH (26-32) pg MCHC (32-36) g/dL RDW (11.5-14.0) % Plt Count (150-450) x10^3/uL MPV (7.5-11.0) fL Gran % (36.0-66.0) % Immature Gran % (Auto) (0.00-0.4) % Nucleat RBC Rel Count (0.00-0.1) % Eos # (Auto) (0-0.5) x10^3/uL Immature Gran # (Auto) (0.00-0.03) x10^3u/L Absolute Lymphs (auto) (1.0-4.6) x10^3/uL Absolute Monos (auto) (0.0-1.3) x10^3/uL Absolute Nucleated RBC (0.00-0.01) x10^3u/L Lymphocytes % (24.0-44.0) % Monocytes % (0.0-12.0) % Eosinophils % (0.00-5.0) % Basophils % (0.0-0.4) % Absolute Granulocytes (1.4-6.9) x10^3/uL Basophils # (0-0.4) x10^3/uL D-Dimer 0.60 H (0.0-0.50) mg/L Puncture Site pCO2 (35-45) mmHg pO2 (75-100) mmHg Base Excess (-2.0-2.0) O2 Saturation (94-100) g/dF ABG pH (7.35-7.45) ABG HCO3 (22-28) ABG O2 Sat (Measured) (95-100) % Baldomero Test A-a Gradient a/A Ratio Hemoglobin Carboxyhemoglobin (0.0-6.9) % THgb Methemoglobin (1.4-1.5) % Potassium (3.5-5.1) Temperature C POC O2 Flow Rate % Sodium (135-145) mmol/L Chloride (98-107) mmol/L Carbon Dioxide (22-30) mmol/L Anion Gap (5-15) MEQ/L BUN (7-17) mg/dL Creatinine (0.52-1.04) mg/dL Estimated GFR ML/MIN Glucose (74-106) mg/dL Lactic Acid (0.4-2.0) Calcium (8.4-10.2) mg/dL Magnesium (1.6-2.3) mg/dL Total Bilirubin (0.2-1.3) mg/dL AST (14-36) U/L ALT (0-35) U/L Alkaline Phosphatase (38-126) U/L Serum Total Protein (6.3-8.2) g/dL Albumin (3.5-5.0) g/dL Procalcitonin 0.043 (0.030-0.080) ng/mL Influenza Type A Ag NEGATIVE (NEGATIVE) Influenza Type B Ag NEGATIVE (NEGATIVE) RSV (PCR) NEGATIVE (NEGATIVE) SARS-CoV-2 (PCR) NEGATIVE (NEGATIVE) 07/02/23 07/03/23 07/03/23 Range/Units 23:12 04:30 04:30 WBC 21.0 H (4.0-10.5) x10^3/uL RBC 3.79 L (4.1-5.4) x10^6/uL Hgb 10.5 L (12.0-16.0) g/dL Hct 33.8 L (35-47) % MCV 89.2 (78-100) fL MCH 27.7 (26-32) pg MCHC 31.1 L (32-36) g/dL RDW 16.1 H (11.5-14.0) % Plt Count 255 (150-450) x10^3/uL MPV 10.3 (7.5-11.0) fL Gran % 73.2 H (36.0-66.0) % Immature Gran % (Auto) 0.5 H (0.00-0.4) % Nucleat RBC Rel Count 0.0 (0.00-0.1) % Eos # (Auto) 0.02 (0-0.5) x10^3/uL Immature Gran # (Auto) 0.10 H (0.00-0.03) x10^3u/L Absolute Lymphs (auto) 4.08 (1.0-4.6) x10^3/uL Absolute Monos (auto) 1.39 H (0.0-1.3) x10^3/uL Absolute Nucleated RBC 0.00 (0.00-0.01) x10^3u/L Lymphocytes % 19.5 L (24.0-44.0) % Monocytes % 6.6 (0.0-12.0) % Eosinophils % 0.1 (0.00-5.0) % Basophils % 0.1 (0.0-0.4) % Absolute Granulocytes 15.34 H (1.4-6.9) x10^3/uL Basophils # 0.03 (0-0.4) x10^3/uL D-Dimer (0.0-0.50) mg/L Puncture Site pCO2 (35-45) mmHg pO2 (75-100) mmHg Base Excess (-2.0-2.0) O2 Saturation (94-100) g/dF ABG pH (7.35-7.45) ABG HCO3 (22-28) ABG O2 Sat (Measured) (95-100) % Baldomero Test A-a Gradient a/A Ratio Hemoglobin Carboxyhemoglobin (0.0-6.9) % THgb Methemoglobin (1.4-1.5) % Potassium 3.3 L (3.5-5.1) Temperature C POC O2 Flow Rate % Sodium 137 (135-145) mmol/L Chloride 102 (98-107) mmol/L Carbon Dioxide 30 (22-30) mmol/L Anion Gap 8.3 (5-15) MEQ/L BUN 12 (7-17) mg/dL Creatinine 0.51 L (0.52-1.04) mg/dL Estimated GFR 102.9 ML/MIN Glucose 111 H (74-106) mg/dL Lactic Acid 1.5 (0.4-2.0) Calcium 8.3 L (8.4-10.2) mg/dL Magnesium (1.6-2.3) mg/dL Total Bilirubin 0.30 (0.2-1.3) mg/dL AST 13 L (14-36) U/L ALT 9 (0-35) U/L Alkaline Phosphatase 65 (38-126) U/L Serum Total Protein 6.4 (6.3-8.2) g/dL Albumin 3.1 L (3.5-5.0) g/dL Procalcitonin (0.030-0.080) ng/mL Influenza Type A Ag (NEGATIVE) Influenza Type B Ag (NEGATIVE) RSV (PCR) (NEGATIVE) SARS-CoV-2 (PCR) (NEGATIVE) 07/03/23 Range/Units 04:30 WBC (4.0-10.5) x10^3/uL RBC (4.1-5.4) x10^6/uL Hgb (12.0-16.0) g/dL Hct (35-47) % MCV (78-100) fL MCH (26-32) pg MCHC (32-36) g/dL RDW (11.5-14.0) % Plt Count (150-450) x10^3/uL MPV (7.5-11.0) fL Gran % (36.0-66.0) % Immature Gran % (Auto) (0.00-0.4) % Nucleat RBC Rel Count (0.00-0.1) % Eos # (Auto) (0-0.5) x10^3/uL Immature Gran # (Auto) (0.00-0.03) x10^3u/L Absolute Lymphs (auto) (1.0-4.6) x10^3/uL Absolute Monos (auto) (0.0-1.3) x10^3/uL Absolute Nucleated RBC (0.00-0.01) x10^3u/L Lymphocytes % (24.0-44.0) % Monocytes % (0.0-12.0) % Eosinophils % (0.00-5.0) % Basophils % (0.0-0.4) % Absolute Granulocytes (1.4-6.9) x10^3/uL Basophils # (0-0.4) x10^3/uL D-Dimer (0.0-0.50) mg/L Puncture Site pCO2 (35-45) mmHg pO2 (75-100) mmHg Base Excess (-2.0-2.0) O2 Saturation (94-100) g/dF ABG pH (7.35-7.45) ABG HCO3 (22-28) ABG O2 Sat (Measured) (95-100) % Baldomero Test A-a Gradient a/A Ratio Hemoglobin Carboxyhemoglobin (0.0-6.9) % THgb Methemoglobin (1.4-1.5) % Potassium (3.5-5.1) Temperature C POC O2 Flow Rate % Sodium (135-145) mmol/L Chloride (98-107) mmol/L Carbon Dioxide (22-30) mmol/L Anion Gap (5-15) MEQ/L BUN (7-17) mg/dL Creatinine (0.52-1.04) mg/dL Estimated GFR ML/MIN Glucose (74-106) mg/dL Lactic Acid (0.4-2.0) Calcium (8.4-10.2) mg/dL Magnesium 1.8 (1.6-2.3) mg/dL Total Bilirubin (0.2-1.3) mg/dL AST (14-36) U/L ALT (0-35) U/L Alkaline Phosphatase (38-126) U/L Serum Total Protein (6.3-8.2) g/dL Albumin (3.5-5.0) g/dL Procalcitonin (0.030-0.080) ng/mL Influenza Type A Ag (NEGATIVE) Influenza Type B Ag (NEGATIVE) RSV (PCR) (NEGATIVE) SARS-CoV-2 (PCR) (NEGATIVE) - Radiology Exams Ordered Rad Exams-Entire Visit: Radiology Procedures Category Date Time Status CHEST 1 VIEW (PORTABLE) Stat Exams 07/02/23 22:31 Completed CHEST WITH CONTRAST [CT] Stat Exams 07/02/23 23:30 Completed - Procedures and Test Procedures and Tests throughout Hospitalization: Therapy Orders & Screens 07/02/23 22:59 Respiratory Therapy Assessment DAILY Comment: 07/03/23 03:22 Respiratory Therapy Consult ONCE Comment: Reason For Exam: Diagnosis: sob 07/03/23 03:43 RT Screen per Nursing Assess ONCE Comment: Protocol Order Physician Instructions: Greater than 3 points order RT Admission Screen Reason For Exam: Triggered on Admission Diagnosis: sob Diagnosis: sob Pneumonia: Yes Home O2: Yes Asthma: No CHF: No Home CPAP/BIPAP: No Home Nebs/MDI: Yes Total Points: 13 Smoking Cessation Education ONCE Comment: Diagnosis: sob Smoking Status: Current every day smoker How long have you smoked: 50 yrs Have you smoked in the past 12 months: Yes Approximately how many cigarettes per day: 10 Do you dip or chew tobacco: No ST Screen per Nursing Assess ONCE Comment: Protocol Order Physician Instructions: Greater than [address] Admission Screening Reason For Exam: Triggered on Admission Diagnosis: sob CVA/Dyshpagia/Aphasia: No Cognitive Deficits: No Dehydration/Nutrition Deficit: No Reflux: No Oral-Motor Difficulties: No Pneumonia: Yes [facility] Resident: No Total Points: 5 07/03/23 04:26 Oxygen Nasal Cannula 5 lpm Comment: Diagnosis: sob Respiratory Therapy Assessment DAILY Comment: Diagnosis: sob 07/03/23 05:00 EKG ROUTINE Comment: Diagnosis: sob Discharge Exam General Appearance: no apparent distress, alert, obese Neurologic Exam: alert, oriented x 3, cooperative, normal mood/affect, nml cerebellar function, sensation nml, No motor deficits Eye Exam: PERRL, EOMI, eyes nml inspection Ears, Nose, Throat Exam: normal ENT inspection, pharynx normal, moist mucous membranes Neck Exam: normal inspection, non-tender, supple, full range of motion Respiratory Exam: normal breath sounds, lungs clear, No respiratory distress Cardiovascular Exam: regular rate/rhythm, normal heart sounds Gastrointestinal/Abdomen Exam: soft, No tenderness, No mass Pelvic Exam: deferred Rectal Exam: deferred Back Exam: normal inspection, normal range of motion, No CVA tenderness, No vertebral tenderness Extremity Exam: normal inspection, normal range of motion Skin Exam: normal color, warm, dry Final Diagnosis/Problem List - Final Discharge Diagnosis/Problem (1) COPD exacerbation Current Visit: Yes Status: Acute Assessment & Plan: - Steroids, antibiotics - on Baseline 6LNC - daily smoker- refuses to quit - cough syrup Code(s): J44.1 - CHRONIC OBSTRUCTIVE PULMONARY DISEASE W (ACUTE) EXACERBATION (2) Alkalosis, metabolic Current Visit: Yes Status: Acute Assessment & Plan: Likely from combination of respiratory acidosis and volume contraction 1. IVFs 2. Encourage PO intake 3. ABG prn 07/02 - resolved Code(s): E87.3 - ALKALOSIS (3) Gout Current Visit: Yes Status: Acute Assessment & Plan: No acute flare noted 1. Continue allopurinol 2. Check uric acid prn Code(s): M10.9 - GOUT, UNSPECIFIED (4) Pneumonia Current Visit: Yes Status: Acute Assessment & Plan: - Procal negative - LA negative - most likely COPD exacerbation - F/u with [facility] as scheduled -Continue antibiotics and steroids. - Chest CT: IMPRESSION: 1. interval development of the patches of consolidation in the right lung along with scattered centrilobular nodules. 2. interval resolution of previously noted bilateral scattered groundglass changes/pneumonic infiltrates. 3. Few enlarged mediastinal lymph nodes, index 1.2 cm pretracheal lymph node (prior 1cm). 4. No definite filling defect identified in bilateral pulmonary arteries (please note that the study is suboptimal with delayed contrast opacification of the pulmonary arteries). Repeat CT pulmonary angiogram is suggested to confidently exclude pulmonary embolism, if clinically indicated. Upon comparison with the previous CT dated 04/10/2023: Code(s): J18.9 - PNEUMONIA, UNSPECIFIED ORGANISM (5) Hypokalemia Current Visit: Yes Status: Acute Assessment & Plan: - K+ 3.3- replaced Code(s): E87.6 - HYPOKALEMIA - Discharge Discharge Date: 07/03/23 Disposition: Home, Self-Care Condition: Stable Prescriptions: Continue Allopurinol 100 mg [Zyloprim 100 mg] 100 mg PO DAILY Fluticasone/Umeclidin/Vilanter [Trelegy Ellipta 200-62.5-25] 1 puff PO HS PANTOPRAZOLE 40 mg Tablet [Protonix 40MG Tablet] 40 mg PO QPM Ipratropium [place] [Atrovent Hfa] 1 inh IH QID PRN PRN PRN Reason: Shortness Of Breath Albuterol Sulfate [Albuterol Sulfate Hfa] 8.5 gm IH DAILY PRN 30 Days #1 PRN Reason: Shortness Of Breath/Wheezing Albuterol 2.5 mg/3 ml Neb [Proventil 2.5 mg/3 ml Neb] 2.5 mg IH DAILY 10 Days #25 risperiDONE [Risperdal] 0.5 mg PO BID Follow up with: CALLY LEUNG [ACTIVE STAFF] - 07/05/23 3:45 pm ([place] office) RYAN NELSON),FABIAN REDMOND MD [NON-STAFF PHY W/O PRIVILEGES] - 07/06/23 2:30 pm
[2023-07-03] MEDS ORDERED: NON-FORMULARY ITEM (Fluticasone/Umeclidin/Vilanter [Trelegy Ellipta 200-62.5-25] 1 EACH Bl PO SCH (22:00)
== END 2023-07-03 14:46 | disposition home or self-care (01) ==
LOC: ED 22:24 → MED SURG 07-03 02:12
PROVIDERS: ADMIT Internal Medicine Nephrology; ATTEND Internal Medicine Nephrology
DX: J44.1 Chronic obstructive pulmonary disease with (acute) exacerbation (principal); K21.9 Gastro-esophageal reflux disease without esophagitis; D72.829 Elevated white blood cell count, unspecified; E87.3 Alkalosis; M10.9 Gout, unspecified; E78.5 Hyperlipidemia, unspecified; J18.9 Pneumonia, unspecified organism; E87.6 Hypokalemia; F17.200 Nicotine dependence, unspecified, uncomplicated; Z79.899 Other long term (current) drug therapy; Z20.828 Contact with and (suspected) exposure to other viral communicable diseases; Z86.16 Personal history of COVID-19
CPT/HCPCS: 0241U; 36415; 36600; 71045; 71260; 80053; 82375; 82803; 83036; 83605; 83735; 84145; 85025; 85379; 87040; 93005; 93268; 94640; 94760; 94762; 96360; 96365; 99284; J0456; J1650; J7609; A9270-GY; G0378

== ENCOUNTER 2023-08-11 09:13 | Emergency (ER) | payer MEDICARE ==
--- NOTE | 2023-08-11 09:16 | ERPHSYRPT ---
- History of Present Illness Time Seen by Provider: 08/11/23 09:16 Source: patient, family Exam Limitations: no limitations Physician History: This is a 67-year-old white female patient of Dr. Henriquez who has a [id number] smoking history as well as vaping cannabis and presents with coughing and shortness of breath. Patient has had multiple episodes of COPD exacerbation as well as recurrent bronchitis. Patient states in the last 3 days her symptoms have worsening. She also has left lung pain. Patient was admitted into the hospital on 07/03/2023. I reviewed that admission and discharge summary. Patient has not had a measured fever. Patient has a history of COPD and she is on 6 L oxygen via nasal cannula, hyperlipidemia, asthma, recurrent bronchitis, gastroesophageal reflux disease, and anxiety. Patient has a nebulizer machine but has not used it secondary to the fact she does not have any medication for it. On 07/03/2023 patient had an EKG performed showed sinus tachycardia with a heart rate of 116 and a left anterior fascicular block. On 07/02/2023 patient had a chest x-ray which was consistent with right lung pneumonia. A CT scan of the chest was performed with contrast which also showed a right sided pulmonary infiltrate. Timing/Duration: day(s) (3), worse Activities at Onset: none Severity of Dyspnea-Max: moderate Severity of Dyspnea-Current: moderate Possible Cause: frequent episodes Modifying Factors: Improves With: coughing, deep breath (Left-sided chest pain with deep inspiration), oxygen, rest Associated Symptoms: anxiety, cough, chest pain/discomfort (Left-sided chest pain with deep inspiration), wheezing (Bilateral and diffuse) Allergies/Adverse Reactions: Penicillins Allergy (Verified 08/11/23 09:30) Anaphylactic Reaction Home Medications: Allopurinol 100 mg [Zyloprim 100 mg] 100 mg PO DAILY 10/30/20 [History] Fluticasone/Umeclidin/Vilanter [Trelegy Ellipta 200-62.5-25] 1 puff PO HS 04/08/23 [History] Ipratropium [place] [Atrovent Hfa] 1 inh IH QID PRN PRN 04/08/23 [History] PANTOPRAZOLE 40 mg Tablet [Protonix 40MG Tablet] 40 mg PO QPM 04/08/23 [History] risperiDONE [Risperdal] 0.5 mg PO BID 07/02/23 [History] Hx Tetanus, Diphtheria Vaccination/Date Given: No Hx Influenza Vaccination/Date Given: No Hx Pneumococcal Vaccination/Date Given: Yes Travel Risk - International Travel Have you traveled outside of the country in past 3 weeks: No - Emerging Infectious Disease Are you exhibiting symptoms associated with any current EIDs: Yes Symptoms: Cough: New Onset, Shortness of Breath Comment: pt states she was here approx 2wks ago and sent home with diagnosis of acute bronchitis and pt states her breathing has just "gone downhill from then". - Review of Systems Constitutional: No Symptoms Eyes: No Symptoms Ears, Nose, & Throat: No Symptoms Respiratory: Cough, Dyspnea, Wheezing Cardiac: Chest Pain (Left-sided chest pain with deep inspiration) Abdominal/Gastrointestinal: No Symptoms Genitourinary Symptoms: No Symptoms Musculoskeletal: No Symptoms Skin: No Symptoms Neurological: No Symptoms Psychological: No Symptoms Endocrine: No Symptoms Hematologic/Lymphatic: No Symptoms Immunological/Allergic: No Symptoms All Other Systems: Reviewed and Negative - Past Medical History Pertinent Past Medical History: Yes Neurological History: No Pertinent History ENT History: Cataracts Cardiac History: High Cholesterol Respiratory History: Asthma, Bronchitis, COPD, Emphysema, Pneumonia Endocrine Medical History: No Pertinent History Musculoskeletal History: Arthritis GI Medical History: GERD, Gallbladder Disease History: No Pertinent History Psycho-Social History: Anxiety Female Reproductive Disorders: No Pertinent History Other Medical History: GOUT, seasonal allergies, COVID-19 - Past Surgical History Past Surgical History: Yes Neuro Surgical History: No Pertinent History Cardiac: No Pertinent History Respiratory: No Pertinent History Gastrointestinal: Appendectomy, Cholecystectomy Genitourinary: No Pertinent History Musculoskeletal: Orthopedic Surgery Female Surgical History: Hysterectomy Other Surgical History: teeth removed, bunyonectomy, R hand had a crushing accident surgery to repair tendon involvement pinkie and ring finger on right hand bent at all times. - Social History Smoking Status: Current every day smoker How long have you smoked: 50 yrs Exposure to second hand smoke: Yes Drug Use: marijuana Patient Lives Alone: No - Nursing Vital Signs Nursing Vital Signs: Initial Vital Signs Temperature 97.3 F 08/11/23 09:16 Pulse Rate 94 H 08/11/23 09:16 Respiratory Rate 33 H 08/11/23 09:16 Blood Pressure 126/81 08/11/23 09:16 O2 Sat by Pulse Oximetry 93 L 08/11/23 09:16 Pain Scale Pain Intensity 0 - Physical Exam General Appearance: no apparent distress, alert, anxiety Eye Exam: PERRL/EOMI, eyes nml inspection Ears, Nose, Throat Exam: hearing grossly normal, normal ENT inspection, normal pharynx Neck Exam: normal inspection, non-tender, supple, full range of motion Respiratory Exam: chest tenderness (Left side with deep inspiration), airway intact, wheezing (Bilateral diffuse), No respiratory distress Cardiovascular/Chest Exam: normal heart sounds, regular rate/rhythm Abdominal/Gastrointestinal Exam: soft, normal bowel sounds, No tenderness Rectal Exam: not done Extremity Exam: non-tender, normal range of motion, normal inspection Neurologic Exam: alert, oriented x 3, cooperative, 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 Compared to the EKG done on 07/03/2023, there is resolution of the sinus tachycardia as well as left anterior fascicular block. Today's EKG shows new right bundle branch block.) Ordered Tests: Active Orders 24 hr Category Date Time Status EKG-ER Only STAT Care 08/11/23 09:44 Active IV Insertion STAT Care 08/11/23 09:44 Active Pulse Oximetry (ED) STAT Care 08/11/23 09:44 Active CHEST 1 VIEW (PORTABLE) Stat Exams 08/11/23 09:44 Completed CHEST WITH CONTRAST [CT] Stat Exams 08/11/23 11:18 Completed BLOOD CULTURE Stat Lab 08/11/23 09:55 Received CBC W DIFF Stat Lab 08/11/23 09:44 Completed CMP Stat Lab 08/11/23 09:50 Completed D-DIMER QUANTITATIVE Stat Lab 08/11/23 09:50 Completed Lactic Acid Stat Lab 08/11/23 09:58 Completed MAGNESIUM Stat Lab 08/11/23 09:50 Completed NT PRO BNPII Stat Lab 08/11/23 09:50 Completed TROPONIN Q4H Lab 08/11/23 09:50 Completed TROPONIN Q4H Lab 08/11/23 13:45 Ordered TROPONIN Q4H Lab 08/11/23 17:45 Ordered Respiratory Therapy Assessment DAILY RT 08/11/23 09:54 Active Medication Summary Discontinued Medications Generic Name Dose Route Start Last Admin Trade Name Cristian PRN Reason Stop Dose Admin Hydrocodone Bitart/Acetaminophen 10 ml 08/11/23 09:45 08/11/23 09:53 Hydrocodone/Acetaminophen 5 Ml Udcup PO 08/11/23 09:46 10 ml STAT STA Administration Hydrocodone Bitart/Acetaminophen Confirm 08/11/23 09:52 Hydrocodone/Acetaminophen 5 Ml Udcup Administered 08/11/23 09:53 Dose 10 ml .ROUTE .STK-MED ONE Albuterol Sulfate 2.5 mg 08/11/23 09:44 08/11/23 09:51 Albuterol Sulfate 2.5 Mg/3 Ml Neb IH 08/11/23 09:45 2.5 mg STAT ONE Administration Albuterol Sulfate Confirm 08/11/23 09:50 Albuterol Sulfate 2.5 Mg/3 Ml Neb Administered 08/11/23 09:51 Dose 2.5 mg IH .STK-MED ONE Methylprednisolone Sodium 0 mg 08/11/23 09:44 08/11/23 09:54 Succinate 125 mg/ Sterile IV 08/11/23 09:45 125 mg Water 2 ml STAT ONE Administration Sodium Chloride 500 mls @ 500 mls/hr 08/11/23 11:19 08/11/23 12:42 Sodium Chloride 0.9% 500 Ml IV 08/11/23 12:18 Infused .Q1H ONE Infusion Sodium Chloride Confirm 08/11/23 11:29 Sodium Chloride 0.9% 500 Ml Administered 08/11/23 11:30 Dose 500 mls @ ud IV .STK-MED ONE Methylprednisolone Sodium Succinate Confirm 08/11/23 09:52 Methylprednis Sod Succ 125 Mg/2 Ml Vial Administered 08/11/23 09:53 Dose 125 mg .ROUTE .STK-MED ONE Sterile Water Confirm 08/11/23 09:52 Water For Injection,Sterile 10 Ml Vial Administered 08/11/23 09:53 Dose 10 ml IJ .STK-MED ONE Lab/Rad Data: Laboratory Result Diagrams 08/11/23 09:44 08/11/23 09:50 Laboratory Results 08/11/23 08/11/23 08/11/23 Range/Units 09:59 09:58 09:50 WBC (4.0-10.5) x10^3/uL RBC (4.1-5.4) x10^6/uL Hgb (12.0-16.0) g/dL Hct (35-47) % MCV (78-100) fL MCH (26-32) pg MCHC (32-36) g/dL RDW (11.5-14.0) % Plt Count (150-450) x10^3/uL MPV (7.5-11.0) fL Gran % (36.0-66.0) % Immature Gran % (Auto) (0.00-0.4) % Nucleat RBC Rel Count (0.00-0.1) % Eos # (Auto) (0-0.5) x10^3/uL Immature Gran # (Auto) (0.00-0.03) x10^3u/L Absolute Lymphs (auto) (1.0-4.6) x10^3/uL Absolute Monos (auto) (0.0-1.3) x10^3/uL Absolute Nucleated RBC (0.00-0.01) x10^3u/L Lymphocytes % (24.0-44.0) % Monocytes % (0.0-12.0) % Eosinophils % (0.00-5.0) % Basophils % (0.0-0.4) % Absolute Granulocytes (1.4-6.9) x10^3/uL Basophils # (0-0.4) x10^3/uL D-Dimer (0.0-0.50) mg/L Sodium (135-145) mmol/L Potassium (3.5-5.1) mmol/L Chloride (98-107) mmol/L Carbon Dioxide (22-30) mmol/L Anion Gap (5-15) MEQ/L BUN (7-17) mg/dL Creatinine (0.52-1.04) mg/dL Estimated GFR ML/MIN Glucose (74-106) mg/dL Lactic Acid 1.9 (0.4-2.0) Calcium (8.4-10.2) mg/dL Magnesium (1.6-2.3) mg/dL Total Bilirubin (0.2-1.3) mg/dL AST (14-36) U/L ALT (0-35) U/L Alkaline Phosphatase (38-126) U/L Troponin I < 0.012 (0.000-0.033) ng/mL NT-Pro-B Natriuret Pep (<300) pg/mL Serum Total Protein (6.3-8.2) g/dL Albumin (3.5-5.0) g/dL Influenza Type A Ag NEGATIVE (NEGATIVE) Influenza Type B Ag NEGATIVE (NEGATIVE) RSV (PCR) NEGATIVE (NEGATIVE) SARS-CoV-2 (PCR) NEGATIVE (NEGATIVE) 08/11/23 08/11/23 08/11/23 Range/Units 09:50 09:50 09:44 WBC 8.4 (4.0-10.5) x10^3/uL RBC 4.14 (4.1-5.4) x10^6/uL Hgb 11.6 L (12.0-16.0) g/dL Hct 36.9 (35-47) % MCV 89.1 (78-100) fL MCH 28.0 (26-32) pg MCHC 31.4 L (32-36) g/dL RDW 14.6 H (11.5-14.0) % Plt Count 249 (150-450) x10^3/uL MPV 10.1 (7.5-11.0) fL Gran % 71.1 H (36.0-66.0) % Immature Gran % (Auto) 0.4 (0.00-0.4) % Nucleat RBC Rel Count 0.0 (0.00-0.1) % Eos # (Auto) 0.01 (0-0.5) x10^3/uL Immature Gran # (Auto) 0.03 (0.00-0.03) x10^3u/L Absolute Lymphs (auto) 1.74 (1.0-4.6) x10^3/uL Absolute Monos (auto) 0.62 (0.0-1.3) x10^3/uL Absolute Nucleated RBC 0.00 (0.00-0.01) x10^3u/L Lymphocytes % 20.8 L (24.0-44.0) % Monocytes % 7.4 (0.0-12.0) % Eosinophils % 0.1 (0.00-5.0) % Basophils % 0.2 (0.0-0.4) % Absolute Granulocytes 5.96 (1.4-6.9) x10^3/uL Basophils # 0.02 (0-0.4) x10^3/uL D-Dimer 0.59 H (0.0-0.50) mg/L Sodium 137 (135-145) mmol/L Potassium 3.6 (3.5-5.1) mmol/L Chloride 99 (98-107) mmol/L Carbon Dioxide 30 (22-30) mmol/L Anion Gap 12.6 (5-15) MEQ/L BUN 14 (7-17) mg/dL Creatinine 0.48 L (0.52-1.04) mg/dL Estimated GFR 104.4 ML/MIN Glucose 155 H (74-106) mg/dL Lactic Acid (0.4-2.0) Calcium 9.0 (8.4-10.2) mg/dL Magnesium 1.8 (1.6-2.3) mg/dL Total Bilirubin 0.20 (0.2-1.3) mg/dL AST 20 (14-36) U/L ALT 15 (0-35) U/L Alkaline Phosphatase 63 (38-126) U/L Troponin I (0.000-0.033) ng/mL NT-Pro-B Natriuret Pep 409 (<300) pg/mL Serum Total Protein 7.2 (6.3-8.2) g/dL Albumin 4.0 (3.5-5.0) g/dL Influenza Type A Ag (NEGATIVE) Influenza Type B Ag (NEGATIVE) RSV (PCR) (NEGATIVE) SARS-CoV-2 (PCR) (NEGATIVE) - Progress Progress: improved, re-examined Air Movement: fair Progress Note: 08/11/23 09:59 My medical decision making and the assignment of at least moderate level of complexity to today's medical issue is based on review of the patient's past medical history, review of the patient's most recent hospital admission and discharge summary, review the patient's medication list, review of patient drug allergy list, history of present illness and physical findings on examination. The workup includes placement of intravenous line, respiratory therapy consultation with nebulizer treatment, CBC, CMP, troponin level, BNP, D-dimer level, chest x-ray, infusion of 125 mg intravenous Solu-Medrol, 10 mg of hydrocodone/acetaminophen elixir to help suppress cough, viral studies, monotest and twelve-lead EKG. Differential diagnosis includes myocardial infarction, CHF exacerbation, COPD exacerbation, pneumonia, pulmonary embolus 08/11/23 10:22 Chest x-ray was interpreted by the radiologist and I reviewed the impression. The impression states improving bibasilar infiltrate versus atelectasis with minimal residual findings. No new cardiopulmonary findings. 08/11/23 12:57 I interpreted the patient's laboratory data results. The patient had an elevated D-dimer and complaints of shortness of breath and therefore I ordered a CT scan of the chest with contrast. The results of that study was interpreted by the radiologist and I reviewed the impression. There are no acute cardiopulmonary abnormalities. There is no evidence of pulmonary embolus. The patient has a normal white count, normal temperature, normal lactic acid level and no radiographic evidence for pneumonia. Her EKG has improved over an EKG dated 07/03/2023 with no evidence of acute ischemia. Her BNP is normal. I feel the patient can be discharged to home. Her only complaint now is a headache. She has no further complaints of chest pain or shortness of breath. The patient was not fully treating her shortness of breath. She is continuing to smoke both cigarettes and vaping cannabis. She was not using her nebulizer because she was out of albuterol solution. She is not on any steroid medication. Patient will be encouraged to cease smoking and vaping of any kind. We will send a prescription for albuterol solution and steroid to her pharmacy. Blood Culture(s) Obtained: Yes Counseled pt/family regarding: lab results, diagnosis, rad results Medical Desision Making - Diagnostic Testing Diagnostic test were ordered, analyzed, and reviewed by me: Yes Radiological Interpretation: Reviewed by me, Teleradiologist Report - Risk of complications The pt has a mod risk of morbidity or mortality based on: Need for prescription drug management - Departure Departure Disposition: Home Clinical Impression: COPD exacerbation, Noncompliance with medication regimen Condition: Stable Critical Care Time: No Referrals: MIKAYLA HENRIQUEZ MD [Primary Care Provider] - Follow up/PCP as directed Instructions: Chronic Obstructive Pulmonary Disease Additional Instructions: Stop smoking cigarettes and vaping of any kind. Call your primary care provider today, 08/11/2023, to make arrangements for follow-up appointment to be seen in the next 3 to 5 days. Take your medication as prescribed. Prescriptions: Prednisone 10 mg [Deltasone 10 mg] 10 mg PO TID #12 tablet Hydrocodone/Acetaminophen [Hydrocodone-Acetamn 7.5-325/15] 10 ml PO Q8H PRN #120 ml MDD 30 ml PRN Reason: Cough Albuterol 2.5 mg/3 ml Neb [Proventil 2.5 mg/3 ml Neb] 2.5 mg IH Q6H #25 units
[2023-08-11 09:30] VITALS: TEMP 97.3
[2023-08-11] MEDS ORDERED: PROVENTIL 2.5 MG/3 ML NEB IH ONE (09:50)
[2023-08-11] MEDS: PROVENTIL 2.5 MG/3 ML NEB IH ONE (09:51)
[2023-08-11] MEDS ORDERED: HYDROCODONE-ACETAMIN 2.5-108/5 ML SOLUTION ONE (09:52)
[2023-08-11] MEDS ORDERED: Sterile H2O 10 ml IJ ONE (09:52)
[2023-08-11] MEDS ORDERED: solu-MEDROL ONE (09:52)
[2023-08-11] MEDS: HYDROCODONE-ACETAMIN 2.5-108/5 ML SOLUTION PO STA (09:53)
[2023-08-11] MEDS: solu-MEDROL 125 MG, Sterile H2O 10 ml 2 ML IV ONE (09:54)
[2023-08-11 10:06] LABS: Absolute Neutrophil Ct (ANC) 5.96 x10^3/uL (1.4-6.9); BASOPHIL % 0.2 % (0.0-0.4); Basophil (Absolute #) 0.02 x10^3/uL (0-0.4); Eosinophil % 0.1 % (0.00-5.0); Eosinophil (Absolute #) 0.01 x10^3/uL (0-0.5); Hematocrit 36.9 % (35-47); Hemoglobin 11.6 g/dL (12.0-16.0); IMMATURE GRAN # 0.03 x10^3u/L (0.00-0.03); IMMATURE GRAN % 0.4 % (0.00-0.4); Lymphocyte (Absolute #) 1.74 x10^3/uL (1.0-4.6); Lymphocytes % 20.8 % (24.0-44.0); Mean Cell Volume 89.1 fL (78-100); Mean Corpuscular Hgb Concent. 31.4 g/dL (32-36); Mean Platelet Volume 10.1 fL (7.5-11.0); Monocyte (Absolute #) 0.62 x10^3/uL (0.0-1.3); Monocytes % 7.4 % (0.0-12.0); Neutrophil % 71.1 % (36.0-66.0); Platelet Count 249 x10^3/uL (150-450); Red Blood Count 4.14 x10^6/uL (4.1-5.4); Red Cell Distribution Width 14.6 % (11.5-14.0); White Blood Count 8.4 x10^3/uL (4.0-10.5)
--- NOTE | 2023-08-11 10:17 | XRAY ---
Indication: Cough. Short of breath. Comparison: July 02, 2023 Portable chest demonstrates improving previous bibasilar infiltrates versus atelectasis with minimal residual. Upper lungs clear. Heart not enlarged. No new cardiopulmonary abnormalities.
[2023-08-11 10:28] LABS: ANION GAP 12.6 MEQ/L (5-15); BILIRUBIN,TOTAL 0.2 mg/dL (0.2-1.3); Creatinine 1 0.48 mg/dL (0.52-1.04); EST GLOMERULAR FILTRATION RATE 104.4 ML/MIN; MAGNESIUM 1.8 mg/dL (1.6-2.3); Potassium 3.6 mmol/L (3.5-5.1); Total Protein 7.2 g/dL (6.3-8.2)
[2023-08-11 10:41] LABS: INFLUENZA A NEGATIVE (NEGATIVE); INFLUENZA B NEGATIVE (NEGATIVE); RESPIRATORY SYNCTIAL VIRUS NEGATIVE (NEGATIVE); SARS-CoV-2 Xpert Express NEGATIVE (NEGATIVE)
[2023-08-11] MEDS ORDERED: Sodium Chloride 0.9% 500 ML 500 ML IV ONE (11:29)
[2023-08-11] MEDS: Sodium Chloride 0.9% 500 ML 500 ML IV ONE (11:30)
--- NOTE | 2023-08-11 12:50 | XRAY ---
Indication: Short of breath. Elevated d-dimer. Multiple contiguous images obtained through the chest using 80 cc Isovue 370 contrast and PE protocol. Comparison: April 10 and July 03, 2023. Good opacification of the pulmonary arteries to include the lobar and segmental branches. Again no pulmonary embolus. Heart not enlarged again with scattered coronary calcifications. Aorta again minimally atherosclerotic without aneurysm/dissection. No pathologic mediastinal/hilar lymphadenopathy. Lungs demonstrate clearing previous diffuse right lung airspace disease. Minimal bilateral mid to lower lung subsegmental atelectasis/scarring. No new pulmonary mass/nodule, infiltrate, or effusion. Bony thorax intact again with minimal/mild generative changes throughout the spine. Limited upper abdomen demonstrates stable bilateral adrenal adenomas. Impression: 1. Continued negative pulmonary embolus. 2. Clearing previous right lung airspace disease. No acute cardiopulmonary abnormalities. 3. Again chronic findings including scattered atelectasis/scarring, arteriosclerotic disease, degenerative spondylosis, and bilateral adrenal adenomas.
[2023-08-11] MEDS ORDERED: MORPHINE SULFATE 2 MG INJ ONE (13:01)
[2023-08-11] MEDS ORDERED: Zofran 4 MG/2 ML VIAL ONE (13:01)
[2023-08-11] MEDS: Zofran 4 MG/2 ML VIAL IV ONE (13:04)
[2023-08-11] MEDS: MORPHINE SULFATE 2 MG INJ IV ONE (13:04)
[2023-08-11 13:06] VITALS: BP 124/68; PULSE 83; RESP 27; O2SAT 97
== END 2023-08-11 13:30 | disposition home or self-care (01) ==
LOC: ED 09:13
DX: J44.1 Chronic obstructive pulmonary disease with (acute) exacerbation (principal); Z91.148 Patient's other noncompliance with medication regimen for other reason; R06.02 Shortness of breath; R05.9 Cough, unspecified; E78.5 Hyperlipidemia, unspecified; Z79.52 Long term (current) use of systemic steroids; Z79.891 Long term (current) use of opiate analgesic; Z79.899 Other long term (current) drug therapy; Z86.16 Personal history of COVID-19; Z99.81 Dependence on supplemental oxygen; Z72.0 Tobacco use
CPT/HCPCS: 0241U; 36000; 36415; 71045; 71260; 80053; 83605; 83735; 83880; 84484; 85025; 85379; 87040; 93005; 94640; 94760; 96374; 96375; 99284; 96376; J2270; J2405; J2919; J7609; A9270-GY